=== PATIENT | female | born 1935 | race Caucasian/White ===

== ENCOUNTER 2018-02-13 06:53 | Day surgery (SDC) | payer MEDICARE, OTHER ==
--- NOTE | 2018-02-10 15:57 | HP ---
CC: Dr. Holliday; Dr. Hillman * ADMISSION HISTORY AND PHYSICAL: DATE OF ADMISSION: 02/13/18 ATTENDING SURGEON: Dr. Gamaliel Caballero.* (DICTATED BY JACKELINE JACKSON) CHIEF COMPLAINT: Abdominal wall mass. HISTORY OF PRESENT ILLNESS: This is an 82-year-old female with history of intraabdominal metastatic endometrial cancer (see below), who for the past 6 months or so has noted a gradually enlarging somewhat tender lump in the right upper quadrant. This was close to a prior laparoscopic port site. She states that it hurts to sit up without assistance. She also has some generalized symptoms of anorexia, though states that her current weight of 114 has been stable (down from 140 prior to treatment for her cancer). A fine needle aspiration was done by Pathology on 01/02/18, which confirmed metastatic endometrial cancer. A CT scan of the chest, abdomen and pelvis on 01/22/18 showed an enhancing mass in the right upper quadrant abdominal wall measuring 1.8 x 1.9 cm as well as a small umbilical hernia. No other definitive evidence of metastatic disease. The patient was seen in the office by Dr. Caballero on 06/19, at which time exam confirmed the presence of a right upper quadrant abdominal wall mass, which was firm and measured approximately [address] Caballero has discussed with her the indications for surgery, the risks, benefits, and alternatives. She would like to proceed as scheduled with excision of abdominal wall mass. At this point, plan is for resection under local anesthesia with IV sedation and primary closure of the defect. The patient understands that she may require an overnight stay for pain control. A prescription for [place] 5/325 was e-sent to her pharmacy for postoperative analgesia. PAST MEDICAL HISTORY: Endometrial carcinoma (found as an incidental finding at the time of hysterectomy for prolapse in the spring. That procedure was a robotic supracervical hysterectomy with BSO and sacrocervicopexy. She was treated with postoperative radiation therapy, but near the end of that treatment period, was noted to have a growing mass in the abdominal wall. Workup and subsequent surgery on 02/28/15 included resection of an 8 x 6 cm abdominal wall mass with additional debulking and omentectomy as well as reconstruction with AlloDerm. That surgery was done at [facility]. Margins were positive. The patient was treated subsequently by Dr. Hillman with carbo-taxol. At this point, there is no other evidence of metastatic disease). Past medical history is also positive for COPD and/or pulmonary fibrosis (the patient herself never a smoker, but exposed to significant secondhand smoke); hypertension; type 2 diabetes; chronic atrial fibrillation, on anticoagulation; chronic back pain related to spinal stenosis; hyperlipidemia ; mitral valve prolapse; glaucoma. PAST SURGICAL HISTORY: No additional prior surgeries reported. CURRENT MEDICATIONS: 1. Warfarin 5 mg one-half tablet once daily, 6 days out of 7 and 1 whole tablet every Saturday. The patient stopped preoperatively, her last dose being . 2. Atorvastatin 10 mg once daily. 3. Glipizide 5 mg one-half tablet once daily in the morning. 4. Metoprolol. Her chart records indicate 25 mg b.i.d., though her personal records indicate 25 mg one-half tablet b.i.d. 5. Ramipril 10 mg once daily (though her personal record indicates twice daily) . 6. Travatan Z 0.004% eye drops 1 drop OU q.h.s. 7. Betaxolol 0.5% ophthalmic drops 1 drop OU daily. 8. Torsemide 10 mg every other day. 9. Epinephrine p.r.n. for bee sting. 10. The patient is also currently on day 3 of 7 of Cipro 250 mg b.i.d. for UTI. DRUG ALLERGIES: None. FAMILY HISTORY: Negative for anesthesia problems, bleeding or clotting disorders. SOCIAL HISTORY: The patient is single and lives alone. She is a lifelong nonsmoker, though was exposed to significant secondhand smoke. She denies use of alcohol. REVIEW OF SYSTEMS: General: She is currently being treated for UTI and states that her symptoms have all resolved. She specifically denies fever or chills, dysuria or increased frequency. HEENT: She complains of dry mouth and difficulty with broken and/or missing teeth since onset of her cancer diagnosis. Cardiovascular: No recent chest pain, palpitations. Respiratory: She did undergo pulmonary function tests this morning in preparation for surgery. It appears as though she had been seen by Dr. Cavazos in the past for evaluation of sleep apnea, which she denies having or being treated for. GI: Generalized anorexia, but states that her weight has been stable. No nausea, vomiting. No lower GI symptoms reported. : As above. No additions. 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 Endocrine: No thyroid dysfunction. She is treated for type 2 diabetes, but does not do fingersticks on a regular basis and is not aware of her most recent A1c. She denies specific symptoms to suggest hypoglycemia. Neuro/Psych: No problems reported (she was previously taking sertraline, but not at present). Hematological/Oncological: As above. No additions. PHYSICAL EXAMINATION GENERAL: Thin, but otherwise well-nourished and well-appearing female, in no acute distress. She appears younger than her stated age of 82. VITAL SIGNS: Height 65 inches, weight 114 pounds. Blood pressure 122/80, pulse 108, respirations 22. HEENT: Pupils are equal, round, reactive. EOMs intact. Conjunctive pink. Oropharynx: Teeth in fair to poor repair with a number of missing and/or broken teeth. No other intraoral lesions of note. NECK: No lymphadenopathy in the cervical or supraclavicular regions. No thyromegaly. LUNGS: Clear to auscultation. No rales or wheezes. HEART: Irregularly irregular consistent with atrial fibrillation. No murmur appreciated. ABDOMEN: As above per abdominal wall lesion. Multiple well-healed surgical scars including midline and laparoscopic port sites. No other palpable masses or lesions. GENITALIA: Not done. RECTAL: Not done. BACK: No spinous process or CVA tenderness. EXTREMITIES: No edema. NEUROLOGICAL: Grossly intact. SKIN: Warm and dry. No suspicious rashes. There is a palpable lesion in the right upper quadrant of the abdominal wall as previously described, which is minimally tender, but fairly fixed to the abdominal wall. No other palpable subcutaneous lesions. IMPRESSION: Abdominal wall mass (metastatic endometrial carcinoma). PLAN: Excision, abdominal wall mass. JACKELINE JACKSON [id number]/[facility] #: [id number] KATE
[~2018-02-13 06:53] MED LIST: Buffered Lidocaine 0.9% SYRIN* 5 ML/SYR SYRINGE INTRADERM ONE; Lactated Ringers 1000 ML Bag* 1,000 ML IV SCH
[2018-02-13] MEDS ORDERED: Metoprolol Tartrate TAB* 50 mg ONE (08:14)
[2018-02-13] MEDS ORDERED: ceFAZolin 2 GM PREMIX in ORs 2 GM/50 ML BAG IVPB ONE (08:20)
[2018-02-13] MEDS ORDERED: Propofol* 10 MG/ML 20 ML BTL ONE (09:14)
[2018-02-13] MEDS ORDERED: fentaNYL* 50 MCG/ML 2 ML VIAL (100 MCG VIAL) ONE (09:15)
[2018-02-13] MEDS ORDERED: Bupivacaine 0.5% W/EPI SDV* 30 ML VIAL ONE (09:16)
[2018-02-13] MEDS ORDERED: Midazolam* 1 MG/ML 2 ML VIAL (2 MG) ONE (09:16)
[2018-02-13] MEDS ORDERED: Lidocaine 1% INJ* 10 MG/ML 30 ML SDV ONE (09:16)
[2018-02-13] MEDS ORDERED: Atracurium* 10 MG/ML 10 ML VIAL ONE (09:16)
[2018-02-13] MEDS ORDERED: Ondansetron INJ* 2 MG/ML VIAL IV PRN (10:05)
[2018-02-13] MEDS ORDERED: Naloxone* 0.4 MG/ML 1 ML VIAL IV PRN (10:05)
[2018-02-13] MEDS ORDERED: fentaNYL* 50 MCG/ML 2 ML VIAL (100 MCG VIAL) IV PRN (10:05)
[2018-02-13] MEDS ORDERED: oxyCODONE/Acetamin 5/325 MG* TAB PO PRN (10:05)
[2018-02-13] MEDS ORDERED: HYDROmorphone INJ1* 1 MG/ML SYRINGE IV PRN (10:05)
[2018-02-13] MEDS ORDERED: Metoprolol Tartrate IV* 1 MG/ML 5 ML VIAL ONE (10:16)
[2018-02-13] MEDS ORDERED: Ondansetron INJ* 2 MG/ML VIAL ONE (10:25)
[2018-02-13] MEDS ORDERED: Glycopyrrolate IV* 0.2 MG/ML 1 ML VIAL ONE (10:25)
[2018-02-13] MEDS ORDERED: Neostigmine Methylsulfate* 2 MG/2 ML SYRINGE ONE (10:25)
[2018-02-13] MEDS ORDERED: Heparin VIAL(*) 5000 UNITS/ML VIAL (FIVE THOUSAND) SUBCUT ONE (11:01)
[2018-02-13] MEDS ORDERED: Heparin VIAL(*) 5000 UNITS/ML VIAL (FIVE THOUSAND) ONE (11:04)
[2018-02-13 12:48] VITALS: BP 98/71
--- NOTE | 2018-02-13 14:49 | OP ---
CC: Dr. Gamaliel Caballero; Dr. Hillman; Dr. Holliday OPERATIVE REPORT: DATE OF OPERATION: 02/13/18 DATE OF : 37 SURGEON: Dr. Caballero. GROUP RESERVATIONS COORDINATOR: None. ANESTHESIOLOGIST: Dr. Mcmahon. ANESTHESIA: General anesthetic, local infiltration. PRE-OP DIAGNOSIS: Abdominal wall mass, port site tumor. POST-OP DIAGNOSIS: Abdominal wall mass, port site tumor. OPERATIVE PROCEDURE: Excision of right upper quadrant abdominal wall mass. DESCRIPTION OF PROCEDURE: The patient was supine on the operative table. After adequate general ane sthetic, compression stockings, Shantanu Hugger warmer, and intravenous antibiotics, the abdomen was prep ped with antiseptic, draped in a sterile fashion. The mass was palpable in the right subcostal regio n. An elliptical incision in the skin approximately 2 x 5 cm was created and this was carried down t o the abdominal wall mass. This was excised with roughly 1 cm margin in somewhat of an elliptical fa shion and sutures were used to twyla short, medium and long lateral locations and this was sent in for fabián for pathologic evaluation. Resection was done using electrocautery and hemostasis was good. Th e closure was accomplished in layers using 0 Vicryl. This created a nice closure. Local anesthetic was infiltrated into the muscle. The adipose was approximated with 3-0 Vicryl and the skin with 4-0 Prolene followed by sterile dressing. She tolerated the procedure well, was awakened and brought to Recovery in good condition. No complications, no drains. Pathologic specimen was abdominal wall mas s. Sponge and instrument counts correct. Estimated blood loss 20 mL. [id number]/[facility] #: [id number]
== END 2018-02-13 12:51 | disposition home or self-care (01) ==
LOC: OR 06:53
PROVIDERS: ATTEND Surgery
DX: C79.89 Secondary malignant neoplasm of other specified sites (principal); Z85.42 Personal history of malignant neoplasm of other parts of uterus; I48.91 Unspecified atrial fibrillation; Z79.01 Long term (current) use of anticoagulants; I10 Essential (primary) hypertension; E78.5 Hyperlipidemia, unspecified; I34.1 Nonrheumatic mitral (valve) prolapse; E11.9 Type 2 diabetes mellitus without complications; J44.9 Chronic obstructive pulmonary disease, unspecified
CPT/HCPCS: 88307; 88341; 88342; A9270-GY; J0690; J1644; J2250; J2405; J2704; J3010; J3490

== ENCOUNTER 2018-11-13 15:14 | Inpatient (IN) | payer MEDICARE, OTHER ==
--- NOTE | 2018-11-13 15:31 | ED ---
Palpitations / Dysrhythmia - HPI Summary HPI Summary: 83 year old F presenting to [facility] from [facility] office at [place] with a chief complaint of tachycardia and shortness of breath at the [facility] office 2 hours ago. Daughter states that patient has been having intermittent episodes of tachycardia and shortness of breath gradually progressing since 3 weeks ago. Patient denies pain and discomfort today. The patient rates the pain 0/10 in severity. Symptoms aggravated by nothing. Symptoms alleviated by nothing. Patient has never had these symptoms before. Patient has hx atrial fibrillation. No hx blood clots. Patient takes metoprolol and Coumadin which she has not taken for several days. Patient has not taken any of her medications today. Medications reviewed. Allergies noted. - History of Current Complaint Chief Complaint: EDDysrhythmPalp Time Seen by Provider: 11/13/18 15:23 Hx Obtained From: Patient Onset/Duration: Gradual Onset, Lasting Weeks - 3, Still Present, Worse Since - 2 hours ago Severity Currently: None Aggravating: Nothing Alleviating: Nothing - Allergy/Home Medications Allergies/Adverse Reactions: Allergies Allergy/AdvReac Type Severity Reaction Status Date / Time bee stings Allergy states Uncoded 11/13/18 15:15 passed out-did not require medical attention Home Medications: Home Medications Aspirin EC TAB* [Ecotrin EC Low Dose 81 MG*] 81 mg PO DAILY 11/13/18 [History Confirmed 11/13/18] Metoprolol Tartrate TAB* [Lopressor TAB*] 50 mg PO BID 11/13/18 [History Confirmed 11/13/18] Multivitamins/Minerals TAB* [Theragran/minerals TAB*] 1 tab PO DAILY 11/13/18 [ History Confirmed 11/13/18] Ramipril CAP* [Altace CAP*] 5 mg PO DAILY 11/13/18 [History Confirmed 11/13/18] Torsemide TAB* [Demadex*] 10 mg PO DAILY 11/13/18 [History Confirmed 11/13/18] Warfarin TAB(*) [Coumadin TAB(*)] 1.25 mg PO MOWEFRSA 11/13/18 [History Confirmed 11/13/18] Warfarin TAB(*) [Coumadin TAB(*)] 2.5 mg PO SUTUTH 11/13/18 [History Confirmed 11/13/18] PMH/Surg Hx/FS Hx/Imm Hx Endocrine/Hematology History: Reports: Hx Diabetes Denies: Hx Systemic Lupus Erythematosus Cardiovascular History: Reports: Hx Atrial Fibrillation, Hx Hypertension, Other Cardiovascular Problems/Disorders - Atrial Fibrillation-on warfarin, Hypercholesterolemia Denies: Hx Congestive Heart Failure, Hx Pacemaker/ICD Respiratory History: Denies: Other Respiratory Problems/Disorders GI History: Reports: Hx Gastroesophageal Reflux Disease, Other GI Disorders - Removal of abdominal wall mass,[id number] appetite History: Reports: Hx Renal Disease - abnormal gfr, Other Problems/ Disorders - UTI, being treated, Hysterectomy- found endometrial cancer-2014 Denies: Hx Dialysis Musculoskeletal History: Denies: Hx Rheumatoid Arthritis, Other Musculoskeletal History Sensory History: Reports: Hx Contacts or Glasses - Glasses, Hx Glaucoma - eye drops Denies: Hx Cataracts, Hx Hearing Aid Opthamlomology History: Reports: Hx Contacts or Glasses - Glasses, Hx Glaucoma - eye drops Denies: Hx Cataracts Neurological History: Denies: Other Neuro Impairments/Disorders Psychiatric History: Denies: Hx Panic Disorder - Cancer History Cancer Type, Location and Year: malig neoplasm corpus uteri Hx Chemotherapy: Yes - a few weeks ago with dr alex Fox Radiation Therapy: No - Surgical History Surgery Procedure, Year, and Place: hysterectomy, cervical prolapse, tumors removed L abd. and fachia, Hx Anesthesia Reactions: No Infectious Disease History: No Infectious Disease History: Denies: Traveled Outside the [place] in Last 30 Days - Social History Alcohol Use: None Hx Substance Use: No Substance Use Type: Reports: None Hx Tobacco Use: Yes Smoking Status (MU): Former Smoker Have You Smoked in the Last Year: No Review of Systems Positive: Other - tachycardia Positive: Shortness Of Breath All Other Systems Reviewed And Are Negative: Yes Physical Exam - Summary Physical Exam Summary: Constitutional: Well-developed, Well-nourished, Alert. Patient is tachypneic and retracting Skin: Warm, Dry HENT: Normocephalic; Atraumatic Eyes: Conjunctiva normal Neck: Musculoskeletal ROM normal neck. (-) JVD, (-) Stridor, (-) Tracheal deviation Cardio: Irregular irregular tachycardia, Heart sounds normal; Intact distal pulses; The pedal pulses are 2+ and symmetric. Radial pulses are 2+ and symmetric. (-) Murmur Pulmonary/Chest wall: Effort normal. (-) Respiratory distress, (-) Wheezes, (-) Rales Abd: Soft, (-) tenderness, (-) Distension, (-) Guarding, (-) Rebound Musculoskeletal: (-) Edema Lymph: (-) Cervical adenopathy Neuro: Alert, Oriented x3 Psych: Mood and affect Normal Triage Information Reviewed: Yes Vital Signs On Initial Exam: Initial Vitals Temp Pulse Resp BP Pulse Ox 97.9 F 120 24 123/82 97 11/13/18 15:15 11/13/18 15:15 11/13/18 15:15 11/13/18 15:15 11/13/18 15:15 Vital Signs Reviewed: Yes Diagnostics - Vital Signs Vital Signs Temp Pulse Resp BP Pulse Ox 11/13/18 15:15 97.9 F 120 24 123/82 97 - Laboratory Result Diagrams: 11/13/18 15:52 11/13/18 15:52 Lab Statement: Any lab studies that have been ordered have been reviewed, and results considered in the medical decision making process. - Radiology CXR Radiology Interpretation Completed By: Radiologist Summary of Radiographic Findings: 1. CARDIOMEGALY. 2. THERE IS DIFFUSE PATTERN OF RETICULAR OPACIFICATION. WHEN COMPARED TO THE PREVIOUS CT EXAMINATION , SLIGHTLY REPRESENTS A COMBINATION OF PULMONARY INTERSTITIAL EDEMA SUPERIMPOSED ON CHRONIC PULMONARY FIBROTIC CHANGES. ED physician has reviewed this report. - EKG 1526 EKG Rhythm: Atrial Fibrillation Summary of EKG Findings: Atrial fibrillation, RVR - Additional Comments Diagnostic Additional Comments: Chest/Thorax CTA shows, per radiologist: 1. The study is POSITIVE for a new filling defect in the right lower lobe pulmonary artery consistent with pulmonary embolus with irregular contour suggesting subacute or chronic clot. However, there is evidence of right heart strain with RV to LV ratio 1.3. 2. Cardiomegaly and dilated right heart chambers with evidence of elevated right heart pressure and dilated right heart chambers, new since prior. 3. Interval development of diffuse septal thickening and perihilar groundglass opacities, likely representing pulmonary edema secondary to CHF. Superimposed infection is not excluded. 4. Evidence of pulmonary fibrotic change. 5. Increased size of subcentimeter mediastinal lymph nodes, nonspecific and possibly related to patient's fluid status. 6. Other nonemergent findings detailed above. THIS REPORT CONTAINS FINDINGS THAT MAY BE CRITICAL TO PATIENT CARE. The findings were verbally communicated via telephone conference with Von Hernandez at 7:51 PM EDT on 11/13/2018. The findings were acknowledged and understood. ED physician has reviewed this report. Re-Evaluation - Re-Evaluation First Eval Re-Evaluation Time: 16:26 Change: Improved Comment: after 10 mg diltiazem, patient's HR is in the high 90s/low 100s Second Eval Re-Evaluation Time: 19:46 Change: Unchanged Comment: radiologist called to report that patient has a subacute clot Third Eval Re-Evaluation Time: 20:08 Change: Unchanged Comment: patient is agreeable to admission Course/Dx - Course Course Of Treatment: Patient is here with worsening shortness of breath and palpitations of the past 3 weeks. Patient was in atrial fibrillation and RVR on arrival. Patient is given 2 mg of diltiazem with improvement in her heart rate. Patient blood performed which showed a BNP greater than 1300. Patient had a d-dimer in the 600s. Patient had a CTA which showed a subacute PE. Patient was normotensive and not hypoxic. Patient did have evidence right heart strain on CTA. Patient was started on a heparin drip and admitted to medicine. - Diagnoses Provider Diagnoses: Atrial fibrillation with RVR, Pulmonary embolism, New onset of congestive heart failure - Physician Notifications Discussed Care Of Patient With: Kevin Mcgrath Time Discussed With Above Provider: 20:00 Instructed by Provider To: Other - Dr. Mcgrath, hospitalist, agrees to admit patient - Critical Care Time Critical Care Time: 30-74 min Discharge ED - Sign-Out/Discharge Documenting (check all that apply): Patient Departure - Admit Patient Received Moderate/Deep Sedation with Procedure: No - Discharge Plan Condition: Guarded Disposition: ADMITTED TO [facility] Referrals: Tammy Holliday MD [Primary Care Provider] - - Billing Disposition and Condition Condition: GUARDED Disposition: Admitted to [facility] - Attestation Statements Document Initiated by Scribe: Yes Documenting Scribe: Lesli Gillespie Provider For Whom Kerry is Documenting (Include Credential): Von Hernandez MD Scribe Attestation: Lesli Joseph, scribed for Von Hernandez MD on 11/13/18 at 2208. Scribe Documentation Reviewed: Yes Provider Attestation: The documentation as recorded by the Lesli dorman accurately reflects the service I personally performed and the decisions made by me, Von Hernandez MD Status of Scribe Document: Viewed
[2018-11-13] MEDS ORDERED: NS 0.9% 1000 ML** 1,000 ML IV ONE (15:34)
[2018-11-13] MEDS ORDERED: Metoprolol Tartrate IV* 1 MG/ML 5 ML VIAL IV ONE (15:45)
[2018-11-13] MEDS ORDERED: Diltiazem IV push/loading dose 5 MG/ML 5 ML vial (25 mg) IV SLOW PU ONE (15:55)
[2018-11-13 16:22] LABS: Albumin 3.4 g/dL (3.2-5.2); Albumin/Globulin Ratio 0.8 (1-3); BUN/Creatinine Ratio 23.5 (8-20); Calcium 9.2 mg/dL (8.6-10.3); EGFR African American 54.7 (>60); EGFR Non-African American 45.2 (>60); Globulin 4.1 g/dL (2-4); Hematocrit 35 % (35-47); Hemoglobin 11.5 g/dL (12.0-16.0); Mean Corpuscular HGB Conc 34 g/dL (31-36); Mean Corpuscular Hemoglobin 37 pg (27-31); Mean Platelet Volume 7.6 fL (7.4-10.4); Platelet Count 241 10^3/uL (150-450); Potassium 4.9 mmol/L (3.5-5.0); Red Blood Count 3.08 10^6 /uL (3.70-4.87); Red Cell Distribution Width 17 % (10-15); Total Bilirubin 0.8 mg/dL (0.2-1.0); Total Protein 7.5 g/dL (6.4-8.9); White Blood Count 5.9 10^3/uL (3.5-10.8)
[2018-11-13 16:24] LABS: Troponin I 0.01 ng/mL (<0.04)
--- OUTSIDE RECORDS SUMMARY | 2018-11-13 16:29 | XMS REPORT | Summary of Care ---
:1935 Author Organization [facility] Address [address] [facility] [place] [address] Care Team Providers Name Role Phone Tammy Holliday MD Primary Care Provider Jorge Luis Ingram MD Primary Card Checker/Founder & Ceo Reason for Referral Refer to Department Only (Routine) Status Reason Specialty Diagnoses / Referred By Referred To Procedures Contact Contact Pending Review Diagnoses Macrocytic anemia Tammy Holliday MD [address] [place] [address] Reason for Visit Reason Comments Follow Up 2wk to BP managment , pt c/o of labored breathing and more tired is seeing dr Higgins has apt again in march Encounter Details Date Type Department Care Team Description 10/29/2018 Office Visit [facility] Mg, Macrocytic anemia ( Primary Dx); Practice MD Tammy Type 2 diabetes mellitus with complication, without long-term current use of insulin (HCC); [address] Atrial fibrillation, unspecified type (HCC) [place] [address] [place] [address] [phone] Allergies Active Allergy Reactions Severity Noted Date Comments Lansoprazole-Naproxen Other 08/12/2007 Unknown Bee Sting Anaphylaxis High 11/22/2009 Probable yellow jacket documented as of this encounter (statuses as of 10/29/2018) Medications Medication Sig Dispensed Refills Start Date End Date Status ONE TOUCH ULTRA TEST USE DIRECTED 100 Each 5 10/15/2012 Active STRIPS In Vitro Strip TWO TIMES A DAY betaxolol (BETOPIC) Place 1 Drop in 0 Active 0.5 % Ophthalmic both eyes EVERY Solution MORNING. Travoprost (TRAVATAN Place 1 Drop in 0 Active Z) 0.004 % Ophthalmic both eyes EVERY Solution BEDTIME. metoprolol (LOPRESSOR) Take 1 Tab by 180 Tab 3 03/19/2018 Active 50 MG Oral mouth TWICE DAILY. TabIndications: Paroxysmal atrial fibrillation (HCC) atorvastatin (LIPITOR) Take 1 Tab by 90 Tab 1 05/22/2018 Active 10 MG Oral Tab mouth DAILY. glipiZIDE (GLUCOTROL) Take 0.5 Tabs by 45 Tab 1 05/22/2018 Active 5 MG Oral Tab mouth DAILY. torsemide (DEMADEX) 10 Take 1 Tab by 90 Tab 3 05/23/2018 Active MG Oral mouth DAILY. TabIndications: Chronic diastolic CHF (congestive heart failure) ([facility]) Multiple Vitamin Take 1 Tab by 0 09/10/2018 Active (DAILY VITAMIN) Oral mouth DAILY. TabIndications: vit k Indications: vit k 25mcg/tab 25mcg/tab warfarin (COUMADIN) 5 Take 0.5 Tabs by 30 Tab 0 09/24/2018 Active MG Oral Tab mouth DAILY. Not currently in use aspirin (ECOTRIN) 81 Take 81 mg by 0 Active MG Oral Tab EC mouth DAILY NEEDED. warfarin (COUMADIN) Take 1 Tab by 90 Tab 3 10/01/2018 Active 2.5 MG Oral mouth DAILY. As TabIndications: Atrial directed which is fibrillation, 2.5mg Sun/Tue/Mary. unspecified type (HCC) 1.25mg remaining days of week ramipril (ALTACE) 5 MG Take 1 Cap by 30 Cap 1 10/14/2018 Active Oral Cap mouth DAILY. documented as of this encounter (statuses as of 10/29/2018) Active Problems Problem Noted Date Chronic diastolic congestive heart failure 03/19/2018 Type 2 diabetes mellitus with complication, without long-term current use of insulin Atrial fibrillation, unspecified type 08/10/2015 Pelvic mass in female 01/18/2015 Malignant neoplasm of corpus uteri, except isthmus 08/02/2014 Overview: Recurrent multifocal endometrial cancer after robotic laparoscopic supracervical hysterectomy with bilateral salpingo oophorectomy and sacrocervicopexy with cryptic endometrial cancer found in the uterine fundus. 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 current use of anticoagulant therapy 04/08/2012 Overview: Managed by [facility] referred by Dr Mg Bailon Atrial fibrillation CHADS2 score 3 [HTN,Age,DM] target INR range 2.0-3.0 therapy initiated on 04/08/12 duration of therapy Indefinite updated referral 06/2014, 08/2015, 10/2016,12/2017 updated orders 06/24/14, 08/17/15, 11/13/16, 01/07/18 Hyperlipidemia 08/12/2007 Hypertension 08/12/2007 Peripheral neuropathy 08/12/2007 GERD (gastroesophageal reflux disease) 08/12/2007 Eczema 08/12/2007 MVP (mitral valve prolapse) 08/12/2007 Lyme disease 08/12/2007 Overview: False positive Lyme antibody test. Spinal stenosis, lumbar region, without neurogenic claudication Overview: L4-L5 DM (diabetes mellitus) documented as of this encounter (statuses as of 10/29/2018) Resolved Problems Problem Noted Date Resolved Date Abdominal pain, acute, left lower quadrant 12/30/2014 11/22/2017 Caput medusae 03/17/2014 08/02/2014 documented as of this encounter (statuses as of 10/29/2018) Immunizations Name Administration Dates Next Due Influenza (IM) Preservative Free 11/21/2012, 01/11/2010 Influenza Vaccine High Dose 11/08/2017, 12/03/2016, 12/14/2015, 12/03/2014, 12/23/2013 Influenza Vaccine Whole 12/17/2008, 12/19/2007, 12/16/2006 Influenza Virus Vaccine Pres Free 6-35 12/17/2011 Months PNEUMOCOCCAL POLYSACCHARIDE VACCINE 12/02/2007 Pneumococcal Conjugate(13 Valent) 12/13/2016 ZOSTER (ZOSTAVAX) VACCINE 12/17/2016 documented as of this encounter Social History Tobacco Use Types Packs/Day Years Used Date Never Smoker Smokeless Tobacco: Never Used Alcohol Use Drinks/Week oz/Week Comments No 0 Standard drinks or equivalent 0.0 Sex Assigned at Date Recorded Not on file Job Start Date Occupation Industry Not on file Not on file Not on file Travel History Travel Start Travel End No recent travel history available. documented as of this encounter Last Filed Vital Signs Vital Sign Reading Time Taken Comments Blood Pressure 92/58 10/29/2018 10:40 AM EDT Pulse 120 10/29/2018 10:40 AM EDT Temperature 36.5 10/29/2018 10:40 AM EDT C (97.7 F) Respiratory Rate - - Oxygen Saturation 97% 10/29/2018 10:40 AM EDT Inhaled Oxygen Concentration - - Weight 50.4 kg (111 lb 3.2 oz) 10/29/2018 10:40 AM EDT Height 166.4 cm (5' 5.5") 10/29/2018 10:40 AM EDT Body Mass Index 18.22 10/29/2018 10:40 AM EDT documented in this encounter Patient Instructions Patient InstructionsTammy Holliday MD - 10/29/2018 10:40 AM EDT1. Stop Glipizide 2. Schedule appointment with Hematology 3. Schedule appointment with cardiology documented in this encounter Progress Notes Tammy Holliday MD - 10/29/2018 10:40 AM EDT Patient: Loli Krishnan Date of Service: 10/29/2018 Subjective: Loli Krishnan is a 83-y.o. female who presents for Chief Complaint Patient presents with Follow Up 2wk to BP managment , pt c/o of labored breathing and more tired is seeing dr Higgins has apt again in march Patient comes follow up fatigue, SOB, low BP BP continues to be low. Sub optimal heart rate control: patient is tachycardic Past Medical History: Diagnosis Date Atrial fibrillation (HCC) 04/08/2012 DM (diabetes mellitus) (HCC) Eczema 08/12/2007 Endometrial cancer (HCC) GERD (gastroesophageal reflux disease) 08/12/2007 Hyperlipidemia 08/12/2007 Hypertension 08/12/2007 MVP (mitral valve prolapse) 08/12/2007 mild MR Peripheral neuropathy 08/12/2007 Spinal stenosis, lumbar region, without neurogenic claudication L4-L5 Outpatient Medications as of 10/29/2018 Medication Sig Dispense Refill aspirin (ECOTRIN) 81 MG Oral Tab EC Take 81 mg by mouth DAILY NEEDED. atorvastatin (LIPITOR) 10 MG Oral Tab Take 1 Tab by mouth DAILY. 90 Tab 1 betaxolol (BETOPIC) 0.5 % Ophthalmic Solution Place 1 Drop in both eyes EVERY MORNING. glipiZIDE (GLUCOTROL) 5 MG Oral Tab Take 0.5 Tabs by mouth DAILY. 45 Tab 1 metoprolol (LOPRESSOR) 50 MG Oral Tab Take 1 Tab by mouth TWICE DAILY. 180 Tab 3 Multiple Vitamin (DAILY VITAMIN) Oral Tab Take 1 Tab by mouth DAILY. Indications: vit k 25mcg/tab ONE TOUCH ULTRA TEST STRIPS In Vitro Strip USE DIRECTED TWO TIMES A DAY 100 Each 5 ramipril (ALTACE) 5 MG Oral Cap Take 1 Cap by mouth DAILY. 30 Cap 1 torsemide (DEMADEX) 10 MG Oral Tab Take 1 Tab by mouth DAILY. 90 Tab 3 Travoprost (TRAVATAN Z) 0.004 % Ophthalmic Solution Place 1 Drop in both eyes EVERY BEDTIME. warfarin (COUMADIN) 2.5 MG Oral Tab Take 1 Tab by mouth DAILY. As directed which is 2.5mg Sun/Tue/Mary. 1.25mg remaining days of week 90 Tab 3 warfarin (COUMADIN) 5 MG Oral Tab Take 0.5 Tabs by mouth DAILY. Not currently in use 30 Tab 0 No current facility-administered medications on file as of 10/29/2018. Allergies Allergen Reactions Sting [Bee Sting] Anaphylaxis Probable yellow jacket Prevacid Naprapac [Lansoprazole-Naproxen] Other Unknown Objective: BP 92/58 (BP Location: Left arm, Patient Position: Sitting) Pulse 120 Temp 97.7 F (36.5 C) Ht 5' 5.5" (1.664 m) Wt 111 lb 3.2 oz (50.4 kg) SpO2 97% BMI 18.22 kg/m2 GENERAL: alert, fatigued THROAT: lips, mucosa, and tongue normal: teeth and gums normal NECK: supple, symmetrical, trachea midline and no adenopathy LUNGS: clear to auscultation bilaterally HEART: irregularly irregular rhythm, systolic murmur EXTREMITIES: no edema. CBC - bacrocytic anemia (has macrocytosis since 2014, Vit B12/folic acid - normal), Iron - normal, Ferritin - elevated, HGA1C - normal, CMP - stable renal insufficiency Component Latest Ref Rng & Units 10/23/2018 10/23/2018 10/23/2018 10/23/2018 8/ 10/23/2018 10/23/2018 11:48 AM 11:48 AM 11:48 AM 11:48 AM 11:48 AM 11:48 AM 11:48 AM WBC COUNT 3.98 - 10.04 K/uL 6.41 RBC 3.93 - 5.22 M/UL 2.89 (L) Hemoglobin 11.2 - 15.7 g/dL 10.3 (L) Hematocrit 34.1 - 44.9 % 33.5 (L) MCV 79.4 - 94.8 FL 115.9 (H) MCH 25.6 - 32.2 PG 35.6 (H) MCHC 32.2 - 35.5 g/dL 30.7 (L) Platelet Count 182 - 369 K/uL 282 MPV 9.4 - 12.3 FL 10.1 RDW 11.7 - 14.4 % 16.2 (H) NEUTROPHILS 34.0 - 71.1 % 79.7 (H) Lymphocyte % 19.3 - 51.7 % 7.8 (L) MONOCYTES 4.7 - 12.5 % 6.6 Eosinophils 0.7 - 5.8 % 4.5 Basophil % 0.1 - 1.2 % 0.9 nRBC % 0.0 - 0.2 % 0.0 Neutrophil # 1.56 - 6.13 K/UL 5.11 Lymphocyte # 1.18 - 3.74 K/UL 0.50 (L) Monocyte # 0.24 - 0.86 K/UL 0.42 Eosinophil # 0.04 - 0.36 K/UL 0.29 Basophil # 0.01 - 0.08 K/UL 0.06 Immature Gran % 0.0 - 0.4 % 0.5 (H) Immature Gran # 0.00 - 0.03 K/uL 0.03 NRBC # 0.00 - 0.12 K/uL 0.00 Sodium 134 - 145 mmol/L 136 Potassium 3.5 - 5.1 mmol/L 4.7 Chloride 98 - 107 mmol/L 102 CO2 22 - 30 mmol/L 22 Calcium 8.3 - 10.1 mg/dl 9.4 Albumin 3.5 - 5.0 g/dl 3.6 BUN 7 - 17 mg/dl 29 (H) Creatinine 0.7 - 1.2 mg/dl 1.3 (H) Glucose (Lab) 70 - 99 mg/dl 104 (H) Protein,Total 6.3 - 8.2 g/dl 7.6 Total Bilirubin 0.0 - 1.1 MG/DL 0.4 AST 15 - 46 U/L 42 ALT 9 - 52 U/L 19 ALKALINE PHOSPHATASE 40 - 150 U/L 80 eGFR See Interpretation Below ml/min/1.73ml Sq 39 BUN/Creatinine Ratio 6 - 22 RATIO 22 Anion Gap 3 - 11 mmol/L 12 (H) A/G Ratio 0.8 - 2.0 ratio 0.9 Cholestrol <200 mg/dl 93 HDL >50 mg/dl 34 (L) Triglycerides <150 mg/dl 66 LDL Cholesterol <100 MG/DL 46 Cholesterol / HDL Ratio RATIO 2.7 LDL / HDL Ratio 1.3 Non-HDL Cholesterol 0 - 130 MG/DL 59 Rbc Morphology Normal abnormal (A) Anisocytosis 1+ Macrocytes 2+ Poikilocytosis 3+ Polychromasia 1+ Iron Serum 37 - 170 UG/DL 79 Ferritin 11.1 - 264.0 NG/ML 338.0 (H) Glycohemoglobin - POCT <=5.6 % 5.6 Patient advised on tests results ICD-9-CM ICD-10-CM 1. Macrocytic anemia 281.9 D53.9 REFER TO HEMATOLOGY / ONCOLOGY 2. Type 2 diabetes mellitus with complication, without long-term current use of insulin (HCC) Doubt she needs Glipizide any more 250.90 E11.8 3. Atrial fibrillation, unspecified type (HCC) Sub optimal rate control Can't increase Metoprolol due to low BP Will refer to cardiology ( Dig?) 427.31 I48.91 Patient Instructions 1. Stop Glipizide 2. Schedule appointment with Hematology 3. Schedule appointment with cardiology Author: Tammy Holliday MD documented in this encounter Plan of Treatment Date Type Specialty Care Team Description 11/13/2018 Office Visit Cardiology Alex Higgins MD [address] [place] [address] [phone] 11/19/2018 AntiCoag Anticoagulation 11/28/2018 Office Visit Family Practice Tammy Holliday MD [address] [place] [address] [phone] 03/18/2019 Orders Only Cardiology 03/26/2019 Office Visit Cardiology Alex Higgins MD [address] [place] [address] [phone] Name Type Priority Associated Diagnoses Order Schedule REFER TO HEMATOLOGY / Referral Routine Macrocytic anemia Expected: 2018, ONCOLOGY Expires: 10/30/2019 Health Maintenance Due Date Last Done Comments HIV SCREENING 1950 ZOSTER IMMUNIZATION SERIES 02/11/2017 12/17/2016 (2 of 3) MEDICARE ANNUAL WELLNESS 12/03/2017 12/03/2016, 04/08/2012 VISIT INFLUENZA VACCINE (#1) 2018 11/08/2017, 12/03/2016, 12/14/2015, Additional history exists HEMOGLOBIN A1C 04/25/2019 10/23/2018, 04/23/2018, 07/24/2017, Additional history exists DEPRESSION SCREENING 08/14/2019 08/13/2018 FALL RISK ASSESSMENT 08/14/2019 08/13/2018, 08/13/2018 FOOT EXAM 10/15/2019 10/14/2018, 10/14/2018, 07/31/2017 Diabetic Eye Exam 04/24/2020 04/24/2018, 04/24/2018, 10/21/2017, Additional history exists PNEUMOCOCCAL 65+YRS Completed 12/13/2016, 12/02/2007 HPV IMMUNIZATION SERIES Aged Out No longer eligible based on patient's age to complete this topic MENINGOCOCCAL VACCINE IMM Aged Out No longer eligible based on patient's age to complete this topic documented as of this encounter Goals Goal Patient Goal Associated Recent Patient-Stated? Author Type Problems Progress Blood Pressure Blood Pressure Hypertension 92/58 No Mg, < 140/90 (10/29/2018 Tammy, 10:40 AM EDT) Note: Hypertension Care Plan Based on the patient's clinical history and according to JNC 8 guidelines target blood pressure goal is less than 140/90. Based on the patient's last blood pressure of BP: 138/68 mmHg the patient is at at goal. As your provider, it is important that I advise you regarding: your current medications and help you with any challenges you may face taking your medications as directed (ex. instructions, cost, side effects, and interactions). Important lifestyle changes: exercise, diet and dietary sodium reduction your clinical goals and how you can achieve success: exercise plan and diet improvements medication management: adjusted medications as appropriate patient education/self-management tools provided: Yes To successfully manage my Hypertension I will: monitor my blood pressure daily, understanding that my goal is less than 140/ 90 per my healthcare provider's recommendation. I will schedule an appointment with my provider if consistent abnormal readings greater than 160/100. take medications every day as prescribed by my healthcare provider and if unable to take them I will discuss with my provider. monitor for symptoms of chest pain, chest tightness/pressure, irregular heartbeat, persistent dizziness, radiating arm pain, and neck or jaw pain. If any of these symptoms are noticed I will seek medical attention immediately by calling 911 exercise/walk 15 minutes 5 day(s) per week. If I experience chest pain, chest tightness, or shortness of breath, I will seek medical attention immediately. follow a diet rich in fruits, vegetables, and low-fat dairy products with reduced content of saturated & total fat. I will reduce my sodium intake daily. An example is the DASH diet. To obtain more information please refer to the DASH Eating Plan listed in Educational Resources. record my blood pressure results. e[employer] is safe and secure way for you to do this in your medical record online. limit alcohol consumption. For men two drinks per day and women one drink per day. if currently smoking, will discuss how to quit smoking with my healthcare provider and work towards quitting. Educational Resources: National Heart, Lung, & Blood [place] http://nhlbi.nih.gov/hbp/index.html The DASH Diet Eating Plan http://www.nhlbi.nih.gov/health/health-topics/ topics/dash/ Academy of Nutrition & DIetetics http://eatright.org National Smoking Cessation Site http://smokefree.gov Blood Pressure < Blood Pressure 92/58 (10/29/2018 10:40 No Kay Hammond PA-C 140/90 AM EDT) Note: This is an individualized treatment (blood pressure) goal for Loli Krishnan: Displayed above (on the left) is your goal for blood pressure control. Your most recent blood pressure is also shown above, on the right. You should try to achieve blood pressures that are lower than your goal listed above (on the left). Weight increase vs. 18 CHF 1.9 (10/29/2018 10:40 AM Tammy Kim MD mo min (lbs) < 5 EDT) Note: This is an individualized treatment (congestive heart failure, CHF) goal for Loli Krishnan: Displayed above (on the right) is how many pounds you are in excess of your lowest weight over the past 18 months. Note that lower numbers are better. Excessive weight gain often indicates fluid reten tion and worsening heart failure. You should contact your doctor immediately if the above number is too high (above your goal, the number on the left). Diabetes < 7.0 Diabetes DM (diabetes 5.6 (10/23/2018 Danielle Holliday, mellitus) 11:48 AM EDT) MD Tammy Note: Diabetes Care Plan According to current 2014 ADA guidelines the patient A1C goal is less than 7. The patient's last A1C was Lab Results Lab Results Value Date/Time GLYCO 5.9 02/10/2014 1057 GLYCO 5.8 05/25/2013 0956 The patient is:at goal . As your provider, it is important that I advise you regarding: your current medications and help you with any challenges you may face taking your medications as directed (ex. instructions, cost, side effects, and interactions). Important lifestyle changes:exercise, diet and glucose monitoring your clinical goals and how you can achieve success:exercise plan and diet management medication management: adjusted medications as appropriate patient education/self-management tools provided: Yes To successfully manage my Diabetes I will: have lab work every six months if my previous A1c was 7 or less. If my results were greater than 7, I will have lab work every three months. My goal is to control my diabetes by keeping A1c below 7.0 take medications every day as prescribed by my healthcare provider and if unable to take them I will discuss with my provider. exercise/walk 15 minutes 5 day(s) per week. If I experience chest pain, chest tightness, or shortness of breath, I will seek medical attention immediately. check feet daily. If sores or irritation are noticed, will seek medical attention. follow a low carbohydrate and low fat diet. My goal is an LDL (bad cholesterol) number less than 100 when I have my routine lab work. check blood sugar as instructed and will call my healthcare provider if the results are consistently below 70 or above 300. I will monitor for symptoms of low blood sugar (feeling faint, dizzy, lig htheaded, jittery, sweaty, or hungry), if symptoms are noticed, I will eat or drink something (glucose tabs, orange juice, candy) to help raise sugar. record my blood sugar results (including dextrose sticks). round[employer]re is safe and secure way for you to do this in your medical record online. to prevent kidney problems common to people with diabetes I will complete a yearly Microalbumin to check for protein in urine. I will talk with my healthcare provider about medications to prevent diabetic renal disease. to prevent diabetic retinopathy I will see an eye doctor yearly. A yearly dilated eye exam helps prevent blindness. if currently smoking, will discuss how to quit smoking with my healthcare provider and work towards quitting. Glycohemoglobin A1c < 7.0 Diabetes 5.6 (10/23/2018 11:48 AM No Kay Hammond PA-C EDT) Note: This is an individualized treatment (diabetes control, HgbA1C) goal for Loli Krishnan: Displayed above is your progress towards your HgbA1C goal. Your goal is shown above (on the left); your most recent HgbA1C is shown on the right. Note that lower numbers are better. Keep immunizations current Lifestyle No Kay Hammond PA-C Note: This is an individualized lifestyle goal for Loli Krishnan: Please be sure to keep up-to-date on recommended immunizations. For example, this would include a yearly influenza vaccine. Immunization status can be seen by looking at the Health Maintenance sections of your e[facility], Plan of Care, and any After Visit Summaries. Consume a [id number] diet Lifestyle No Tammy Holliday MD Note: This is an individualized lifestyle goal for Loli Krishnan: Please do not add additional salt to your food. Additional salt may lead to fluid retention and worsen your congestive heart failure. Take all prescribed medications as Self-management No Kya Hammond PA-C directed Note: This is an individualized self-management goal for Loli Krishnan: Please take all prescribed medications as directed. 1. Do not skip doses. If you cannot afford your medications, talk with your doctor. 2. Use a pill reminder system such as a pill box if needed. Your pharmacist can help you with this. 3. Contact your Pharmacy 5 days before your medication runs out. If you cannot take your medications for any reasons, talk with your doctor. 4. Please bring all of your medication bottles and inhalers (or a list of all your medications/inhalers) with you to every visit. Potential barriers to meeting all of your care plan goals will continue to be addressed on an ongoing basis. Check your weight daily Self-management No Tammy Holliday MD Note: This is an individualized self-management goal for Loli Krishnan: Please check your weight daily. Refer to the accompanying CHF treatment goal and call your doctor immediately for further instructions on how to respond to unexpected weight gain. documented as of this encounter Implants Implanted Type Area Electronics Installer Device Shelf Model / Identifier Expiration Serial / Date Lot [employer] [place] - [id number] N/A: Uterus BOSTON [id number] / Implanted: Qty: 1 on 07/27/2014 by Chelsey Hernandes MD at [facility] SCIENTIFIC / [id number] Alloderm, 8x16 Rtu Thick - [id number] N/A: LIFECE 03/13/2016 [id number] / Implanted: Qty: 1 on 02/10/2015 by Gamaliel Weiss MD at [facility] Abdomen / [id number] Seprafilm - [id number] N/A: Genzyme 01/01/2017 [id number] / Implanted: Qty: 1 on 02/10/2015 by Gamaliel Weiss MD at [facility] Abdomen / [id number] Seprafilm - [id number] N/A: Genzyme 03/03/2017 [id number] / Implanted: Qty: 1 on 02/10/2015 by Gamaliel Weiss MD at [facility] Abdomen / [id number] documented as of this encounter Results Not on filedocumented in this encounter Visit Diagnoses Diagnosis Macrocytic anemia - Primary Unspecified deficiency anemia Type 2 diabetes mellitus with complication, without long-term current use of insulin (HCC) Atrial fibrillation, unspecified type (HCC) documented in this encounter Insurance Payer Benefit Plan / Subscriber ID Effective Dates Phone Address Type Group MEDICARE MEDICARE PART A xxxxxxxxxxx 2001-Present Medicare & B [employer] COMMERCIAL AETNA xxxxxxxxxx 2013-Present [employer] (Work) documented as of this encounter Advance Directives Code Status Date Activated Date Inactivated Comments Full Code 07/27/2014 7:33 PM 07/28/2014 3:29 PM Full
--- OUTSIDE RECORDS SUMMARY | 2018-11-13 16:29 | XMS REPORT | Summary of Care ---
:1935 Author Organization [facility] Address [address] [place] [address] Care Team Providers Name Role Phone Tammy Holliday MD Primary Care Provider Jorge Luis Ingram MD Primary Bilingual Sales Consultant/Sports Medicine [place] Reason for Visit Reason Comments Follow Up Pt. in Per Dr. Holliday for increased Shortness of Breath with minimal exertion Encounter Details Date Type Department Care Team Description 11/13/2018 Office Visit [facility] [place] [facility], Aortic valve stenosis, etiology of cardiac valve disease unspecified (Primary Dx); Cardiology MD Alex Chronic diastolic CHF (congestive heart failure) ([facility]); [address] [facility] Essential hypertension; [place] [address] [place] [address] Dyspnea, unspecified type; [phone] Persistent atrial fibrillation ([facility]) Allergies Active Allergy Reactions Severity Noted Date Comments Lansoprazole-Naproxen Other 08/12/2007 Unknown Bee Sting Anaphylaxis High 11/22/2009 Probable yellow jacket documented as of this encounter (statuses as of 11/13/2018) Medications Medication Sig Dispensed Refills Start Date [...] TabIndications: Chronic diastolic CHF (congestive heart failure) (HCC) Multiple Vitamin Take 1 Tab by 0 [...] days of week ramipril (ALTACE) 5 MG TAKE 1 CAPSULE BY 30 Cap 1 11/10/2018 Active Oral Cap MOUTH DAILY documented as of this encounter (statuses as of 11/13/2018) Active Problems Problem Noted Date Chronic diastolic [...] in the uterine fundus. Cystocele, lateral 01/13/2014 [facility] current use of anticoagulant therapy 04/08/2012 Overview: Managed by [facility] referred by Dr Holliday Dx Atrial fibrillation CHADS2 score 3 [HTN,Age,DM] target [...] as of this encounter (statuses as of 11/13/2018) Resolved Problems Problem Noted Date Resolved Date Abdominal pain, acute, left lower quadrant 12/30/2014 11/22/2017 Caput medusae 03/17/2014 08/02/2014 documented as of this encounter (statuses as of 11/13/2018) Immunizations Name Administration Dates Next Due Influenza [...] Sign Reading Time Taken Comments Blood Pressure 100/62 11/13/2018 1:37 PM EDT Pulse 142 11/13/2018 1:37 PM EDT Temperature - - Respiratory Rate - - Oxygen Saturation 93% 11/13/2018 1:37 PM EDT Inhaled Oxygen Concentration - - Weight 52.6 kg (116 lb) 11/13/2018 1:37 PM EDT Height 166.4 cm (5' 5.5") 11/13/2018 1:37 PM EDT Body Mass Index 19.01 11/13/2018 1:37 PM EDT documented in this encounter Patient Instructions Patient InstructionsAlex Higgins MD - 11/13/2018 1:40 PM EDT No medication changes today. As we discussed, I recommend that you go into the hospital today to work on controlling your heart rate and improving your breathing. Follow up with me sometime after your hospitalization. documented in this encounter Progress Notes Alex Higgins MD - 11/13/2018 1:40 PM EDT [facility] Note Patient: Loli Krishnan Date of : 1935 Date of Service: 11/13/2018 REFERRING PRACTITIONER: Tammy Holliday PRIMARY CARE PROVIDER: Tammy Holliday Chief Complaint: Chief Complaint Patient presents with Follow Up Pt. in Per Dr. Holliday for increased Shortness of Breath with minimal exertion History of Present Illness: We had the pleasure of seeing Loli Krishnan today at the [facility] Office. She is a 83-y.o. female with HTN, hyperlipidemia, DM, spinal stenosis, persistent atrial fibrillation, aortic stenosis, pulmonary fibrosis, and diastolic CHF. She also has endometrial CA and is followed by Dr. Hillman. Ms. Krishnan returns to cardiology clinic today for worsening GARSIA. Since her last visit with me in March she's seen Khloe Giraldo multiple times and we had offered to do a cardioversion in May to see if it helped her dyspnea but the patient refused at that time. She most recently saw Khloe in September and 6 month f/ u was recommended. More recently she was seen by Dr. Holliday at the end of October and her HR was elevated at 120 bpm and her BP was low at 92/58. From a symptom standpoint, she reports that her breathing has gotten significantly worse in the pastfew weeks. At this point she can only walk a few feet before stopping for a breather. No chest pain/pressure. She has significant difficulty with swallowing b/c of a lot of phlegm in her mouth but she's not coughing up much. Has been seeing a lot of dentists and they've recommended all of her teeth be extracted. Continues to eat a lot of Cow Tails candy and hasn't had much good nutrition. Didn't take her Coumadin for last 2 days b/c she was concerned she would need to go to the hospital for a procedure and so she stopped it on her own. Did get some lightheadedness and spinning in her yard the other day and fell down but didn't lose consciousness. + orthopnea. No sig LE edema. 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 Cystocele, lateral Malignant neoplasm of corpus uteri, except isthmus (HCC) Pelvic mass in female Atrial fibrillation, unspecified type (HCC) Chronic diastolic congestive heart failure (HCC) Type 2 diabetes mellitus with complication, without long-term current use of insulin (HCC) Past Medical History: Diagnosis Date Atrial fibrillation (HCC) 04/08/2012 DM (diabetes mellitus) (HCC) Eczema 08/12/2007 Endometrial cancer (HCC) GERD (gastroesophageal reflux disease) 08/12/2007 Hyperlipidemia 08/12/2007 Hypertension 08/12/2007 MVP (mitral valve prolapse) 08/12/2007 mild MR Peripheral neuropathy 08/12/2007 Spinal stenosis, lumbar region, without neurogenic claudication L4-L5 Past Surgical History: Procedure Laterality Date POSTOP TOTAL ABDOMINAL HYSTERECTOMY Allergies Allergen Reactions Sting [Bee Sting] Anaphylaxis Probable yellow jacket Prevacid Naprapac [Lansoprazole-Naproxen] Other Unknown Current Outpatient Medications Medication aspirin (ECOTRIN) 81 MG Oral Tab EC atorvastatin (LIPITOR) 10 MG Oral Tab betaxolol (BETOPIC) 0.5 % Ophthalmic Solution glipiZIDE (GLUCOTROL) 5 MG Oral Tab metoprolol (LOPRESSOR) 50 MG Oral Tab Multiple Vitamin (DAILY VITAMIN) Oral Tab ONE TOUCH ULTRA TEST STRIPS In Vitro Strip ramipril (ALTACE) 5 MG Oral Cap torsemide (DEMADEX) 10 MG Oral Tab Travoprost (TRAVATAN Z) 0.004 % Ophthalmic Solution warfarin (COUMADIN) 2.5 MG Oral Tab warfarin (COUMADIN) 5 MG Oral Tab Family History Problem Relation Age of Onset Diabetes Father Hypertension Father Breast Cancer Mother Breast Cancer Daughter Social History Socioeconomic History Marital status: Spouse name: Not on file Number of children: Not on file Years of education: Not on file Highest education level: Not on file Occupational History Not on file Social Needs Financial resource strain: Not on file Food insecurity: Worry: Not on file Inability: Not on file Transportation needs: Medical: Not on file Non-medical: Not on file Tobacco Use Smoking status: Never Smoker Smokeless tobacco: Never Used Substance and Sexual Activity Alcohol use: No Alcohol/week: 0.0 standard drinks Drug use: Not on file Sexual activity: Never Lifestyle Physical activity: Days per week: Not on file Minutes per session: Not on file Stress: Not on file Relationships Social connections: Talks on phone: Not on file Gets together: Not on file Attends restoration service: Not on file Active member of club or organization: Not on file Attends meetings of clubs or organizations: Not on file Relationship status: Not on file Intimate partner violence: Fear of current or ex partner: Not on file Emotionally abused: Not on file Physically abused: Not on file Forced sexual activity: Not on file Other Topics Concern Not on file Social History Narrative Cat in home. 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 ,2 daughters Review of Systems - Negative except as noted in HPI. Physical Exam: Vitals: 11/13/18 1337 BP: 100/62 BP Location: Left arm Patient Position: Sitting Pulse: (!) 142 SpO2: 93% Weight: 116 lb (52.6 kg) Height: 5' 5.5" (1.664 m) Body mass index is 19.01 kg/m. General: Thin, alert 83-y.o. female with mild resting tachypnea HEENT: anicteric, MMM, no E/E OP, conj pink. Poor dentition Neck: JVP approx 6-7 cm above RA, no carotid bruits or LAD CV: Irreg irreg and tachy, normal s1/s2, 2/6 mid-peaking crescendo-decrescendo systolic murmur at USB as before. Pulm: Mild velcro-like rales at bilateral bases. + resting tachypnea Abd: soft, NT, ND, +BS. No appreciable pulsatile masses or bruits. Ext: no lower extremity edema, no cyanosis, no cords, redness, or warmth, 1+ distal pulses Neuro: no gross focal deficits Skin: no visible lesions Labs: Lab Results Component Value Date NA 136 10/23/2018 K 4.7 10/23/2018 CL 102 10/23/2018 CO2 22 10/23/2018 GLUCOSE 104 (H) 10/23/2018 BUN 29 (H) 10/23/2018 CREATININE 1.3 (H) 10/23/2018 CALCIUM 9.4 10/23/2018 TP 7.6 10/23/2018 ALBUMIN 3.6 10/23/2018 AST 42 10/23/2018 ALT 19 10/23/2018 ALK 80 10/23/2018 TBILI 0.4 10/23/2018 EGFR 39 10/23/2018 Lab Results Component Value Date NT PRO BNP 8,870 (H) 08/19/2018 Lab Results Component Value Date CHOL 93 10/23/2018 TRIG 66 10/23/2018 HDL 34 (L) 10/23/2018 LDL 46 10/23/2018 LDLHDLRATIO 1.3 10/23/2018 CHOLHDLRATIO 2.7 10/23/2018 Cardiac Studies: EKG Today (I personally reviewed): Afib with RVR in the 140s. TTE 08/20/18: Aortic Valve Aortic valve is tricuspid with thickened and calcified leaflets with reduced mobility. The mean and peak gradients across the aortic valve are 15 mmHg and 30 mmHg respectively. Dimensionless index (LVOT TVI / AV TVI) measures 0.35 which is suggestive of moderate(0.25-0.5) aortic stenosis. Aortic valve area by continuity equation is 0.9 cm2. Indexed Stroke Volume is 29 ml/m2. ( Normal SVI > 35 ml/m2). There is mild aortic regurgitation. FINAL IMPRESSION: Left ventricular cavity size is normal. Left ventricular wall thickness is mildly increased . No evidence of LVOT obstruction. No regional wall motion abnormalities. Global systolic function is low normal, with an estimated ejection fraction of 50-55 %. There is moderate to severe (probably low-glow, low gradient) aortic stenosis There is mild aortic regurgitation. There is moderate tricuspid regurgitation. Estimated pulmonary artery systolic pressure is approximately 48 mmHg. There is mild pulmonic regurgitation. Left atrial size is moderately dilated The right atrium is moderately dilated. The right ventricle is mildly dilated in size with mildly decreased contractility. No pericardial effusion. Regadenoson SPECT at [facility] 04/18/17: Assessment & Plan: Loli Krishnan is a 83-y.o. female with HTN, hyperlipidemia, DM, spinal stenosis , paroxysmal atrial fibrillation, aortic stenosis, pulmonary fibrosis, and diastolic CHF. She also has endometrial CA and is followed by Dr. Hillman. ICD-9-CM ICD-10-CM 1. Aortic valve stenosis, etiology of cardiac valve disease unspecified 424.1 I35.0 2. Chronic diastolic CHF (congestive heart failure) ([facility]) 428.32 I50.32 428.0 3. Essential hypertension 401.9 I10 4. Dyspnea, unspecified type 786.09 R06.00 5. Persistent atrial fibrillation ([facility]) 427.31 I48.1 1. Persistent Atrial Fibrillation/Flutter: The etiology of atrial arrhythmias in this patient is most likely related to age and HTN. The heart-rate is currently very poorly controlled on the current medical regimen and I think the rapid rate is the reason for her worsening CHF sxs. This patient's [id number] score is 5. I recommend the following treatment strategy and medical regimen for this patient: Stroke prevention: Based on the patient's [id number] risk profile, I recommend continuing OACtherapy. She has been on warfarin and hasn't wanted to switch to a NOAC in the past. Her INR was 2.5 on 10/29 but was subtherapeutic at 1.9 on 10/14. Rate control: Cont metoprolol for now. Rhythm control: At this point, I think that we need to pursue a rhythm control approach and tryto do a LEEANN/CV. She is so symptomatic at this point that I have recommended going into the hospitalfor consideration of Tikosyn initiation and LEEANN/CV. I offered to directly admit her to the cardiology service in [place] but she prefers to stay in [place] and has decided to go through the ER there. I will notify the ER that she's coming and would recommend trying to achieve NSR while she's there rather than just rate control 2. Chronic Diastolic CHF with NYHA Class IV symptoms: Symptoms are currently worsened, which is mostlikely related to the rapid AF as noted above. Dyspnea is multifactorial from pulmonary fibrosis, diastolic CHF, aortic stenosis, chronic anemia, and age/deconditioning. Recommendations are as follows: Most recent LV function: 50-55% (assessed on 08/20/18). Beta-erika: Metoprolol as above. ENE-inhibitor/ARB or Entresto: Will probably have to hold ramipril d/t lowish BPs. Aldosterone Antagonist: Not on, but may get benefit in future. Diuretics: Cont torsemide 3. Aortic Stenosis: Low gradients on recent echo, and appears moderate to severe by 2D imaging on of August echo. Will cont to monitor closely by echo. Thank you for allowing me to participate in the care of Loli Krishnan. We will plan on f/u in our office shortly after her hospitalization. If you have any questions or concerns please feel free to call our office at . Alex Higgins MD, 11/13/2018, 13:55 This note was created using my previous note as a template; changes were made where appropriate, andall information in the current note is up to date to the best of my knowledge.Electronically signed by Alex Higgins MD at 2018 2:27 PM EDTdocumented in this encounter Plan of Treatment Date Type Specialty Care Team Description 11/19/2018 AntiCoag Anticoagulation 11/28/2018 Office Visit Family Practice Tammy Holliday MD [address] [place] [id number] 03/18/2019 Orders Only Cardiology 03/26/2019 Office Visit Cardiology Alex Higgins MD [facility] [place] [address] [phone] Health Maintenance Due Date Last Done Comments [...] Problems Progress Blood Pressure Blood Pressure Hypertension 100/62 No Mg, < 140/90 (11/13/2018 Tammy, 1:37 PM EDT) Note: Hypertension Care Plan Based on [...] Educational Resources. record my blood pressure results. [facility] is safe and secure way for you to do this in your medical record online. limit alcohol consumption. For men two drinks per day and women one drink per day. if currently smoking, will discuss how to quit smoking with my healthcare provider and work towards quitting. Educational Resources: National Heart, Lung, & Blood Dorr http://nhlbi.nih.gov/hbp/index.html The DASH Diet Eating Plan http://www.nhlbi.nih.gov/health/health-topics/ topics/dash/ Academy of Nutrition & DIetetics http://eatright.org National Smoking Cessation Site http://smokefree.gov Blood Pressure < Blood Pressure 100/62 (11/13/2018 No Kay Hammond PA -C 140/90 1:37 PM EDT) Note: This is an individualized treatment (blood pressure) goal for Loli Krishnan: Displayed above (on the left) is your goal for blood pressure control. Your most recent blood pressure is also shown above, on the right. You should try to achieve blood pressures that are lower than your goal listed above (on the left). Weight increase vs. 18 CHF 6.7 (11/13/2018 1:37 PM No Tammy Holliday MD mo min (lbs) < 5 EDT) [...] < 7.0 Diabetes DM (diabetes 5.6 (10/23/2018 No Mg mellitus) 11:48 AM EDT) MD Tammy Note: [...] my blood sugar results (including dextrose sticks). [employer] is safe and secure way for you [...] numbers are better. Keep immunizations current Lifestyle Kay Amado PA-C Note: This is an individualized lifestyle goal for Loli Krishnan: Please be sure to keep up-to-date on recommended immunizations. For example, this would include a yearly influenza vaccine. Immunization status can be seen by looking at the Health Maintenance sections of your e[employer], Plan of Care, and any After Visit Summaries. Consume a [id number]-[id number]-[id number] diet Lifestyle No Tammy Holliday MD Note: This is an individualized lifestyle goal for Loli Krishnan: Please do not add additional salt to your food. Additional salt may lead to fluid retention and worsen your congestive heart failure. Take all prescribed medications as Self-management No Kay Hammond PA-C directed Note: This is an [...] of this encounter Implants Implanted Type Area Video Player Mechanic Device Shelf Model / Identifier Expiration Serial / Date Lot [facility] [id number] N/A: Uterus BOSTON [id number] / Implanted: Qty: 1 on 07/27/2014 by Chelsey Hernandes MD at [facility] SCI[employer] / [id number] Alloderm, 8x16 Rtu Thick - [id number] N/A: LIFECE 03/13/2016 [id number] / Implanted: Qty: 1 on 02/10/2015 by Gamaliel Weiss MD at [facility] Abdomen / [id number] Seprafilm - [id number] N/A: Genzyme 01/01/2017 [id number] / Implanted: Qty: 1 on 02/10/2015 by Gamaliel Weiss MD at [facility] Abdomen / [id number] Seprafilm - [id number] N/A: Genzyme 03/03/2017 [id number] / Implanted: Qty: 1 on 02/10/2015 by Gamaliel Weiss MD at [facility] Abdomen / [id number] documented as of this encounter Results Not on filedocumented in this encounter Visit Diagnoses Diagnosis Aortic valve stenosis, etiology of cardiac valve disease unspecified - Primary Chronic diastolic CHF (congestive heart failure) (HCC) Chronic diastolic heart failure Essential hypertension Unspecified essential hypertension Dyspnea, unspecified type Persistent atrial fibrillation (HCC) Atrial fibrillation documented in this encounter Insurance Payer Benefit Plan / Subscriber ID Effective Dates Phone Address Type Group MEDICARE MEDICARE PART A xxxxxxxxxxx 2001-Present Medicare & B AETNA COMMERCIAL AETNA xxxxxxxxxx 2013-Present Aetna (Work) documented as of this encounter Advance Directives Code Status Date Activated Date Inactivated Comments Full Code 07/27/2014 7:33 PM 07/28/2014 3:29 PM Full
[2018-11-13 16:30] LABS: INR 3.85 (0.82-1.09)
[2018-11-13] MEDS ORDERED: Iodixanol* (CONTRAST) 320 MG/ML 100 ML SDV IV ONE ×2 (16:41→17:40)
[2018-11-13 16:47] LABS: TSH (Thyroid Stimulating Horm) 9.69 mcIU/mL (0.34-5.60)
[2018-11-13 16:49] LABS: Mean Corpuscular Volume 112 fL (80-97)
[2018-11-13 16:56] LABS: Polychromasia 2+
[2018-11-13 16:57] LABS: ABS Lymphocytes 0.5 10^3/ul (1.0-4.8); ABS Monocytes 0.4 10^3/ul (0-0.8); Eosinophil % 0.3 %; Lymphocyte % 7.6 %; Nucleated Red Blood Cells % 0.6
[2018-11-13 17:46] LABS: Free T4 1.07 ng/dL (0.61-1.12)
[2018-11-13] MEDS ORDERED: Heparin DRIP 25,000 UNITS(*) 25,000 UNITS/500 ML BAG IV SCH (19:45)
[2018-11-13] MEDS ORDERED: Heparin VIAL(*) 5000 UNITS/ML VIAL (FIVE THOUSAND) IV PRN (19:50)
[2018-11-14] MEDS: Torsemide TAB 10 MG PO SCH ×2 (00:39→08:30)
[2018-11-14] MEDS: Metoprolol Tartrate TAB* 50 mg PO SCH ×3 (00:39→19:54)
[2018-11-14] MEDS: Metoprolol Tartrate IV* 1 MG/ML 5 ML VIAL IV PRN ×2 (01:17→09:17)
[2018-11-14 04:16] LABS: Activated Partial Thrombo Time >240.0 seconds (26.0-38.0)
[2018-11-14 04:21] LABS: ABS Basophils 0.1 10^3/ul (0-0.2); ABS Eosinophils 0.1 10^3/ul (0-0.6); ABS Lymphocytes 0.4 10^3/ul (1.0-4.8); ABS Monocytes 0.4 10^3/ul (0-0.8); ABS Neutrophils 5.4 10^3/ul (1.5-7.7); Eosinophil % 1.8 %; Hematocrit 33 % (35-47); Hemoglobin 10.8 g/dL (12.0-16.0); Mean Corpuscular HGB Conc 33 g/dL (31-36); Mean Corpuscular Hemoglobin 37 pg (27-31); Mean Corpuscular Volume 113 fL (80-97); Mean Platelet Volume 8.2 fL (7.4-10.4); Nucleated Red Blood Cells % 0.3; Platelet Count 216 10^3/uL (150-450); Red Blood Count 2.93 10^6 /uL (3.70-4.87); Red Cell Distribution Width 18 % (10-15); White Blood Count 6.4 10^3/uL (3.5-10.8)
[2018-11-14 07:21] LABS: INR 4.87 (0.82-1.09)
[2018-11-14] MEDS: Atorvastatin* 10 MG TAB PO SCH (08:31)
[2018-11-14] MEDS ORDERED: Aspirin EC TAB* 81 MG TAB.EC PO SCH (09:00)
[2018-11-14] MEDS ORDERED: Furosemide IV* 10 MG/ML VIAL (40 MG) IV ONE ×2 (10:11→16:40)
[2018-11-14] MEDS ORDERED: Diltiazem IV push/loading dose 5 MG/ML 5 ML vial (25 mg) IV SLOW PU PRN (10:14)
--- NOTE | 2018-11-14 10:44 | PN ---
Subjective Date of Service: 11/14/18 Interval History: 83 y/o F with PMH of Atrial Fibrillation(on warfarin), endocervical cancer with abdominal mets(s/p surgey, chemo and radiation) presennted from Dr. Siegel office for AF with RVR. Found to have volume overload, Acute on chronic PE, supratherapeutic INR, macrocytic anemia and subclinical hypothyroidism. Complains of difficulty in breathing even at rest. No palpitation, chest pain or leg swelling. ON 2 L of Oxygen. Objective Active Medications: Atorvastatin Calcium (Lipitor*) 10 mg PO QAM [facility] Last Admin: 11/14/18 08:31 Dose: 10 mg Diltiazem HCl (Diltiazem Iv Push/Loading Dose) 5 mg IV SLOW PU ONCE PRN PRN Reason: Heart Rate/Pulse Greater Than: Stop: 11/15/18 10:13 Metoprolol Tartrate (Lopressor Tab*) 50 mg PO BID [facility] Last Admin: 11/14/18 08:31 Dose: 50 mg Travoprost (Travatan Z 0.004% Opth (Nf)) 1 drop BOTH EYES BEDTIME [facility]; Protocol Vital Signs - 8 hr 11/14/18 11/14/18 11/14/18 03:23 07:28 09:24 Temperature 97.2 F 97.8 F Pulse Rate 109 138 Respiratory 30 30 Rate Blood Pressure 111/87 103/47 110/72 (mmHg) O2 Sat by Pulse 100 95 Oximetry Oxygen Devices in Use Now: Nasal Cannula Exam: Patient is sitting on a chair with nasal canula. HEENT: Normocepahlic and atraumatic Lungs: B/L crackles heard on lower lung base. Heart: normal heart sound heard with no any murmur. Abdomen: Soft, nondistended and nontender Extremity: No swelling Neuro: Alert, conscious and oriented Result Diagrams: 11/14/18 03:54 11/14/18 12:59 Assess/Plan/Problems-Billing Assessment: 83 y/o F with PMH of Atrial Fibrillation(on warfarin), endocervical cancer with abdominal mets(s/p surgey, chemo and radiation) presennted from Dr. Siegel office for AF with RVR. Found to have volume overload, Acute on chronic PE, supratherapeutic INR, macrocytic anemia and subclinical hypothyroidism. Tachypneic, tachycardic - Patient Problems (1) Atrial fibrillation with RVR Current Visit: Yes Status: Acute Code(s): I48.91 - UNSPECIFIED ATRIAL FIBRILLATION SNOMED Code(s): 370650439902379 Comment: Has long history with atrial fibrillation was on warfarin. presented with AF with RVR>120. IV metoprolol given in ED with standing order of metoprolol. still tachy. iv dilt if HR>120 sustained. Adviced for cardioversion but couldnot go cardioversion as her INR is high. Managing medically. Will monitor for decompensation (2) Volume overload Current Visit: Yes Status: Acute Code(s): E87.70 - FLUID OVERLOAD, UNSPECIFIED SNOMED Code(s): 45016930 Comment: Has SOB at rest. due to volume overload of rapid heart rate. Pulmonary edema seen on imaging. Iv lasix given with pham insertion. Improving now (3) Pulmonary embolism on long-term anticoagulation therapy Current Visit: Yes Status: Acute Code(s): I26.99 - OTHER PULMONARY EMBOLISM WITHOUT ACUTE COR PULMONALE; Z79.01 - PEDIATRIC PSYCHOLOGIST (CURRENT) USE OF ANTICOAGULANTS SNOMED Code(s): 276113928 Comment: acute on chronic PE even after being on warfarin. INR is 4.87. concern for recurrence of malignancy. will hold all anticoagulant and aspirin now. will repeat INR tomorrow. After INR becomes therapeutic will start heparin again. (4) Anemia, macrocytic Current Visit: Yes Status: Acute Code(s): D53.9 - NUTRITIONAL ANEMIA, UNSPECIFIED SNOMED Code(s): 28145307 Comment: may be due to vitamin B or foalte deficiency or early DANIE. Will send iron studies with vitamin b12 and folic acid. (5) Subclinical hypothyroidism Current Visit: Yes Status: Acute Code(s): E03.9 - HYPOTHYROIDISM, UNSPECIFIED SNOMED Code(s): 94485677 Comment: will follow up as outpatient . (6) Endometrial adenocarcinoma Current Visit: Yes Status: Acute Code(s): C54.1 - MALIGNANT NEOPLASM OF ENDOMETRIUM SNOMED Code(s): 478849123 Comment: diagnosed in 2014 incidently when she had bladder prolapse. mets to abd and omentum s/p resection of tumor with LLUVIA with BAL and extrenal beam radiation with carbo/ taxel recent resection on feb 2018 last f/u on clinic on may [address] rivero consulted. Ordered CT abd/pelvis with contrast (7) DVT prophylaxis Current Visit: Yes Status: Acute Code(s): Z29.9 - ENCOUNTER FOR PROPHYLACTIC MEASURES, UNSPECIFIED SNOMED Code(s): 099012042 Comment: not given as her INR is supratherapeutic. (8) DNR (do not resuscitate) Current Visit: Yes Status: Acute Status and Disposition: Inpatient. Attending: Lyndsey Mendoza Attestation Documenting Resident: Juan Mullen Supervising Physician: Lyndsey Mendoza Attending/Supervising Physician Comment: Attending AP 83 F PMH endometiral Ca dx in 2016 s/p TAHBSO with c/o abdominal met s/p surgery , XBRT, and chemo, with again recurrent in 2018 sp resection, hx of chornic AF on warfarin AC, who presented with SOB, dizziness, found to be in RVR, new submassive PE, new HFrEF. #HFrEF: EF 30%, trop neg, tachy induced? Lasix 40mg IV BID on 11/14, continue to dose #Submassive PE: No HD instability, some R heart strain on CT, Trop flat, not a candidate for lytics -INR is 4 on admission change to Lovenox when INR falls to therapeutic range (2- 3) #Afib RVR: PRN Dilt for sustained HR >120, this is a physiologic response to the PE #Hx of endometrial Ca: High risk for recurrence, CTAP ordered -Onc to consult #DVT: AC with lovenox when INR Is stable #Code: DNR Attestation: This service has been performed in part by a resident under the direction of a teaching physician.I, Lyndsey Mendoza, performed the service, or was physically present during the critical, or cruz portions of the service, furnished by the resident. I participated in the management of the patient.
[2018-11-14 11:42] LABS: Urine Appearance Cloudy; Urine Bacteria Absent (Absent); Urine Bilirubin Negative (Negative); Urine Blood 1+ (Negative); Urine Color Yellow; Urine Glucose Negative (Negative); Urine Ketones Negative (Negative); Urine Nitrite Negative (Negative); Urine Protein Negative (Negative); Urine Red Blood Cell Trace(0-2/hpf) (Absent); Urine Specific Gravity 1.017 (1.010-1.030); Urine Squamous Epithelial Cell Present (Absent); Urine Urobilinogen Negative (Negative); Urine White Blood Cell Absent (Absent)
--- NOTE | 2018-11-14 13:34 | HP ---
HISTORY AND PHYSICAL: DATE OF ADMISSION: 11/13/18 ADMITTING PROVIDER: Kevin Mcgrath MD PRIMARY CARE PROVIDER: Dr. Holliday. OUTPATIENT ONCOLOGIST: Dr. Hillman. OUTPATIENT DRY KILN OPERATOR HELPER: Dr. Higgins. CHIEF COMPLAINT: Dyspnea on exertion; was referred by Dr. Higgins directly from his office when the patient was in AFib with RVR with his expressed hope of getting a LEEANN cardioversion, possible Tikosyn initiation or other antiarrhythmic therapy. HISTORY OF PRESENT ILLNESS: Loli Krishnan is an 83-year-old female with past medical history of intraabdominal metastatic endometrial cancer, chronic atrial fibrillation, diabetes mellitus type 2, hypertension, COPD versus pulmonary fibrosis (never a smoker, but significant second-hand smoke), chronic back pain , mitral valve prolapse, glaucoma. She has had progressive dyspnea for what sounds like several months. She was advised in the springtime 2018 to consider a cardioversion versus pacemaker, but she states she did not want to "go down" clarifying she does not want an operation and she is somewhat leery of cardioversion given that there is not 100% chance that she would maintain sinus rhythm after an attempt. She had a recent TTE on 08/20/18 which showed moderate aortic stenosis, but thought maybe more or like moderate to severe with low flow and an EF of 50% to 55%. She has not seen Dr. Hillman in a while for her history of intraabdominal metastatic endometrial cancer with her last resection on 02/13/[address] Caballero to remove right upper quadrant abdominal wall met 1.8 x 1.9 cm as well as a small umbilical hernia. She is also status post carboplatin and Taxol for her endometrial carcinoma. She states she has been until recently pretty well controlled with her Coumadin, but 2 months ago, she was supratherapeutic and then subtherapeutic. The last check on 10/29/18, she was 2.5. She saw Dr. Higgins today. Her heart rates were more rapid and he recommended transport down to [facility] for potential cardioversion and Tikosyn load. She did not want to travel to [place] and instead wanted to go to [facility]. She was found to be in atrial fibrillation with RVR with rates initially in the 120s to 140s. She got 10 mg of diltiazem. She was also found to have a D-dimer of 612 and BNP of greater than 1300 (no prior records in our system). She does have a history of diastolic congestive heart failure for which she is on torsemide 10 mg daily. Chest x-ray showed diffuse pattern of reticular opacification when compared to the previous CT examination , probably represents a combination pulmonary interstitial edema superimposed on chronic pulmonary fibrotic changes in comparison to CT chest on 01/22/18. Now, a CTA of the chest demonstrated new filling defect in the right lower lobe pulmonary artery consistent with pulmonary embolus with irregular contour suggesting subacute or chronic clot. There was evidence of right heart strain. There was cardiomegaly and dilated right heart chambers with evidence of elevated right heart pressures and dilated right heart chambers. There was interval development of diffuse septal thickening and perihilar ground-glass opacities, likely representing pulmonary edema secondary to CHF, superimposed infections not excluded; evidence of pulmonary fibrotic changes; increased size of subcentimeter mediastinal lymph nodes, nonspecific and possibly related to the patient's fluid status. She was referred to hospitalist service for management of her AFib with RVR, subacute to chronic PE, and acute on chronic diastolic heart failure. She is somewhat of a poor historian. PAST MEDICAL HISTORY: Includes metastatic endometrial cancer, status post hysterectomy in 2014 with BSO and sacrocervicopexy. She had postoperative radiation therapy and had abdominal wall debulking and omentectomy in February 2015 at [facility], status post carboplatin and Taxol, and then abdominal resection on 02/13/[address] Caballero. Hypertension; diabetes mellitus type 2; chronic AFib, on anticoagulation; chronic back pain with spinal stenosis; hyperlipidemia; mitral valve prolapse; glaucoma; pulmonary fibrosis versus COPD (never a smoker). PAST SURGICAL HISTORY: As above. MEDICATIONS: Included: 1. Warfarin 1.25 mg p.o. Saturday, Saturday, Saturday, Saturday and 2.5 mg p.o. Saturday, Saturday, . 2. Travoprost 1 drop to both eyes at bedtime. 3. Torsemide 10 mg p.o. daily. 4. Ramipril 5 mg p.o. daily. 5. Metoprolol tartrate 50 mg p.o. b.i.d. 6. Theragran 1 tab p.o. daily. 7. Betoptic 0.5% one drop both eyes q.a.m. 8. Lipitor 10 mg p.o. q.a.m. 9. Aspirin 81 mg daily. ALLERGIES: BEE STINGS (passed out). FAMILY HISTORY: Mother of accident at age 82. Father of unknown cause at age 60. Brother had kidney cancer, is alive, age 75. SOCIAL HISTORY: The patient is a never smoker. Does not drink. She lives alone. Her 5 years ago. Her daughter is local and her medical surrogate, Rosalina Solis. She is a DNR and states she has signed the paper work to this effect. REVIEW OF SYSTEMS: A complete 14-point review of systems negative except as per HPI. She does have some coughing with phlegm. She is also quite concerned about her teeth. She feels like her mouth gets almost as if stuck with gum and she recently saw a dentist who said she needs to have the rest of them removed. Her diet is extremely limited, she basically eats [employer] caramel candy as a mainstay with occasionally few bites of (for example) mashed potatoes. She has dropped 20 to 30 pounds over the last year or so, she says. PHYSICAL EXAMINATION GENERAL APPEARANCE: No acute distress. VITAL SIGNS: Temperature 97.9; pulse rate initially 120 to 157, improved to low 110s; respiratory rate ranged between 17 and 46; satting 86% to 100% on 2 L ; blood pressure initially 122/82. HEENT: Normocephalic, atraumatic. Pupils equal, round, and reactive to light. Extraocular motions intact. No sclerae icterus. NECK: Supple. LUNGS: With diffuse Velcro crackles from mid lung down. No wheezing. No rhonchi. CARDIOVASCULAR: Tachycardic, irregularly irregular, slight systolic ejection murmur. ABDOMEN: Soft, nontender, nondistended. EXTREMITIES: Warm, well perfused. No peripheral edema. NEUROLOGIC: Cranial nerves II through XII are intact. Moving all extremities. Steam Generating Powerplant Mechanic strength intact. SKIN: No lesions or rashes. LABORATORY DATA: White count 5.9, hemoglobin 11.5, hematocrit 35, platelets 241. INR 3.85. D-dimer 612. Sodium 136, potassium 4.9, chloride 105, carbon dioxide 24, BUN 27, creatinine 1.15, glucose 135. Troponin 0.01. BNP greater than 1300. TSH 9.69. Free T4 of 1.07, total T3 of 100. IMAGING: Chest x-ray demonstrated, impression: 1. Cardiomegaly. 2. There is a diffuse pattern of ventricular opacification when compared to the previous CT examination, slightly represents a combination of pulmonary interstitial edema superimposed on chronic pulmonary fibrotic changes. CTA of chest showed, impression: 1. The study is positive for a new filling defect in the right lower lobe. Pulmonary artery consistent with pulmonary embolus with irregular contour suggesting subacute or chronic clot. However, there is evidence of right heart strain with RV to LV ratio of 1.3. 2. Cardiomegaly and dilated right heart chambers with evidence of elevated right heart pressure and dilated right heart chambers, new since prior. 3. Interval development of diffuse septal thickening and perihilar ground- glass opacities, likely representing pulmonary edema secondary to CHF. Superimposed infections not excluded. 4. Evidence of pulmonary fibrotic change. 5. Increased size of subcentimeter mediastinal lymph nodes, nonspecific and possibly related to the patient's fluid status. 6. Nonemergent findings detailed above. EKG demonstrated AFib with RVR, heart rate 142. No ST elevations or depressions. QTc is 501. ASSESSMENT AND PLAN: Loli Krishnan is an 83-year-old female with past medical history of metastatic endocervical cancer to the abdomen, status post 2 resections, carboplatin and Taxol, who does have chronic atrial fibrillation, on anticoagulation, presenting from Dr. Higgins's cardiology practice with Afib with RVR and desire to undergo LEEANN cardioversion, potential Tikosyn load per his recommendations. She was also incidentally, because of her dyspnea on exertion, found to have subacute to chronic pulmonary embolism with evidence of right heart strain. She was started on a heparin drip in the emergency room, and she was actually supratherapeutic on her INR at 3.85. BNP was elevated (no prior comparison). Troponin negative. We will consult Cardiology in the morning for consideration for a LEEANN cardioversion as per Dr. Higgins's recommendations. She, in the bigger picture, has a concerning history for recurrence of her metastatic cancer given her 20- to 30-pound weight loss, her newly discovered pulmonary embolism despite being on Coumadin. She had likely consideration for Lovenox upon discharge given her cancer history and pulmonary embolism, but we will await after cardioversion attempt is considered. Notably , she has in the past denied wanting to get either a pacemaker or attempt at cardioversion, but she at this time based on Dr. Higgins's recommendation will consider a cardioversion attempt. Also, we will defer to Cardiology about potential Tikosyn loading which would require a few days' stay for QTc monitoring. We will continue aspirin 81 mg daily. She has no leg edema, but does have potential pulmonary interstitial edema. For her acute on chronic diastolic heart failure, her diuresis plan must also account for her current Afib w/ RVR and right heart strain from the PE. Will be cautious initially with continuation of her torsemide 10 mg at night and consider an increased dose after attempt at cardioversion. Current blood pressures in the 110s over 70s to 80s. We will replete her electrolytes for potassium of 4 and magnesium above 2. She is a full code. She is a DNR. Her medical surrogate is her daughter, Rosalina Solis. For diet, she is n.p.o. after midnight after a cardiac , consistent carbohydrate diet. [id number]/[facility] #: [id number] [facility]
[2018-11-14 13:35] LABS: BUN/Creatinine Ratio 23.5 (8-20); Calcium 8.7 mg/dL (8.6-10.3); EGFR African American 52.5 (>60); EGFR Non-African American 43.4 (>60); Potassium 4.6 mmol/L (3.5-5.0)
--- NOTE | 2018-11-14 14:41 | ECHO ---
*[facility]* [place] [address] Fax #: [phone] Transthoracic Echocardiogram Patient: Loli Krishnan : 1935 Study Date: 11/14/2018 Age: 83 Gender: F HR: 101 bpm Height: 65 in /165.1 cm BSA: 1.6 m^2 Weight: 120.7 lb /54.9 kg BMI: 20.1 kg/m^2 *Payroll Accounting Specialist: Ange Sorto [facility] *Referring Physician: * Kevin Mcgrath *Reading Physician: * Mary Alice Montague MD Indications: PE. Congestive Heart Failure. History: Atrial fibrillation. Risk factors: Hypertension. Diabetes mellitus. Dyslipidemia. Conclusions Summary: - Left ventricle: Systolic function is moderately reduced. The estimated ejection fraction is 35-40%. - Right ventricle: Systolic function is moderately to severely reduced. - Left atrium: The atrium is severely dilated. - Right atrium: The atrium is severely dilated. - Mitral valve: There is moderate regurgitation. - Aortic valve: The findings are consistent with moderate to severe stenosis. The mean systolic gradient is 9.0 mm Hg. The valve area by the velocity-time integral method is 0.60 cm^2. The valve area by the peak velocity method is 0.50 cm^2. - Tricuspid valve: There is moderate regurgitation. - Pericardium, extracardiac: There is a left pleural effusion. - Pulmonary arteries: Systolic pressure is mildly increased. The peak pressure during systole by Doppler is 41.0 mm Hg. - No previous echocardiogram is available. Study data: Transthoracic echocardiogram. Procedure: Transthoracic echocardiography was performed. Image quality was fair. Complete 2D, spectral Doppler, and color flow Doppler. Location: Bedside. Patient status: Inpatient. Patient room number: 446. Rhythm: Atrial fibrillation. Findings Left ventricle: Wall thickness is mildly increased. Systolic function is moderately reduced. The estimated ejection fraction is 35-40%. Wall motion is normal; there are no regional wall motion abnormalities. Left ventricular diastolic function parameters are indeterminate. Right ventricle: The cavity size is normal. Systolic function is moderately to severely reduced. Left atrium: The atrium is severely dilated. Right atrium: The atrium is severely dilated. Mitral valve: The Mitral valve annulus appears calcified. The leaflets are mildly thickened. There is no evidence of stenosis. There is moderate regurgitation. Aortic valve: The annulus is calcified. The leaflets are severely thickened. Valve mobility is restricted. The findings are consistent with moderate to severe stenosis. There is trace regurgitation. Tricuspid valve: The leaflets are normal thickness. There is no evidence of stenosis. There is moderate regurgitation. Pulmonic valve: The leaflets are normal thickness. There is no evidence of stenosis. There is trace regurgitation. Aorta: The aortic root appears normal. Pericardium: There is no significant pericardial effusion. There is a left pleural effusion. Pulmonary arteries: The main pulmonary artery is normal-sized. Systolic pressure is mildly increased. Systemic veins: Inferior vena cava: The vessel is dilated. There is (< 50%) respiratory change in the IVC dimension. Measurements Left ventricle Value Ref Aortic valve continued Value Ref ROJELIO, LAX (L) 3.6 cm 3.8 - 5.2 Peak grad, S 18.0 mm Hg ----- ESD, LAX 3.2 cm 2.2 - 3.5 LVOT/AV, VTI ratio 0.2 ----- FS, LAX (L) 13 % 27 - 45 MARGE, VTI 0.60 cm^2 ----- PW, ED, LAX 0.9 cm 0.6 - 0.9 MARGE, Vmax 0.50 cm^2 ----- E', med joan, TDI (L) 4.8 cm/sec >=7.0 E/e', med joan, 28 Mitral valve Value Ref TDI Peak E 1.34 m/sec ----- Peak A 0.04 m/sec ----- LVOT Value Ref Decel time 109 ms ----- Diam, S 1.90 cm PHT 47 ms ----- Peak moisés, S 0.4 m/sec Mean grad, D 5.0 mm Hg ----- VTI, S 8.0 cm Peak grad, D 11.0 mm Hg ----- Peak grad, S 1 mm Hg MVA, PHT 4.9 cm^2 ----- Mean grad, S 0 mm Hg ERO, PISA 0.1 cm^2 ----- SV 22 ml MR vol, PISA 12 ml ----- MR fraction, PISA 35 % ----- Ventricular septum Value Ref IVS, ED (H) 1.2 cm 0.6 - 0.9 Pulmonic valve Value Ref Peak v, S 0.5 m/sec ----- Right ventricle Value Ref Peak grad, S 1.0 mm Hg ----- ROJELIO, LAX 2.7 cm ROJELIO minor ax, A4C 3.0 cm 1.9 - 3.5 Tricuspid valve Value Ref mid TR peak v 2.6 m/sec <=2.8 Pressure, S 42 mm Hg Peak RV-RA grad, S 27 mm Hg ----- Left atrium Value Ref Aortic root Value Ref AP dim, ES (H) 4.40 cm 2.70 - Root diam 2.7 cm <3.8 3.80 ML dim, A4C 4.9 cm Ascending aorta Value Ref SI dim, A4C 5.9 cm AAo AP diam, S 3.1 cm ----- Vol/bsa, ES, A/L (H) 63 ml/m^2 16 - 34 Aortic arch Value Ref Right atrium Value Ref Arch diam 2.4 cm ----- SI dim, ES (H) 6.5 cm 3.4 - 5.3 ML dim, ES, A4C (H) 5.4 cm 2.6 - 4.4 Pulmonary artery Value Ref Estimated RAP 15 mm Hg Pressure, S 41.0 mm Hg ----- Aortic valve Value Ref Inferior vena cava Value Ref Joan diam, ED 1.9 cm Diam 2.4 cm ----- Peak v, S 2.1 m/sec VTI, S 41.0 cm Mean grad, S 9.0 mm Hg Legend: (L) and (H) twyla values outside specified reference range. Prepared and electronically signed by Mary Alice Montague MD 11/14/2018 14:41
[2018-11-14] MEDS: Magic Mouth Was-BEN/MAAL/LIDO SWISH SPIT SCH ×2 (18:25→19:55)
[2018-11-14] MEDS: PTO: Travoprost Z 0.004% OPHTH (NF) 2.5 ML BTL BOTH EYES SCH (21:41)
[2018-11-15 06:35] LABS: Hematocrit 32 % (35-47); Hemoglobin 10.9 g/dL (12.0-16.0); INR 4.01 (0.82-1.09); Mean Corpuscular HGB Conc 34 g/dL (31-36); Mean Corpuscular Hemoglobin 38 pg (27-31); Mean Corpuscular Volume 110 fL (80-97); Mean Platelet Volume 8.1 fL (7.4-10.4); Platelet Count 214 10^3/uL (150-450); Red Blood Count 2.92 10^6 /uL (3.70-4.87); Red Cell Distribution Width 17 % (10-15)
[2018-11-15 06:46] LABS: Anion Gap 7 mmol/L (2-11); BUN/Creatinine Ratio 27.8 (8-20); Blood Urea Nitrogen 35 mg/dL (6-24); CO2 Carbon Dioxide 27 mmol/L (22-32); Calcium 8.4 mg/dL (8.6-10.3); Chloride 104 mmol/L (101-111); EGFR African American 49.2 (>60); EGFR Non-African American 40.7 (>60); Glucose 107 mg/dL (70-100); Magnesium 1.6 mg/dL (1.9-2.7); Potassium 3.8 mmol/L (3.5-5.0); Sodium 138 mmol/L (135-145)
[2018-11-15 06:50] LABS: Troponin I 0.02 ng/mL (<0.04)
[2018-11-15 07:29] LABS: ABS Eosinophils 0.1 10^3/ul (0-0.6); ABS Lymphocytes 0.5 10^3/ul (1.0-4.8); ABS Monocytes 0.5 10^3/ul (0-0.8); ABS Neutrophils 5.8 10^3/ul (1.5-7.7); Lymphocyte % 6.8 %; Nucleated Red Blood Cells % 0.5
[2018-11-15 07:31] LABS: Polychromasia 1+
[2018-11-15] MEDS ORDERED: Magnesium Sulfate 2 GM IV* 2 GM/50 ML BAG IVPB ONE (07:38)
--- NOTE | 2018-11-15 07:48 | PN ---
Subjective Date of Service: 11/15/18 Interval History: 83 y/o F with PMH of Atrial Fibrillation(on warfarin), endometrial cancer with abdominal mets(s/p surgey, chemo and radiation) presennted from Dr. Castrotic office for AF with RVR. Found to have volume overload, Acute on chronic PE, supratherapeutic INR, macrocytic anemia and subclinical hypothyroidism. No palpitation, chest pain or leg swelling. ON 2.5 L of Oxygen. VSS Objective Active Medications: Atorvastatin Calcium (Lipitor*) 10 mg PO QAM [facility] Last Admin: 11/14/18 08:31 Dose: 10 mg Betaxolol HCl (Betoptic 0.05%*) 1 drop BOTH EYES QAM [facility] Diltiazem HCl (Diltiazem Iv Push/Loading Dose) 5 mg IV SLOW PU ONCE PRN PRN Reason: Heart Rate/Pulse Greater Than: Stop: 11/15/18 10:13 Last Admin: 11/14/18 16:12 Dose: 5 mg Magnesium Sulfate (Magnesium Sulfate 2 Gm Iv*) 2 gm in 50 mls @ 50 mls/hr IVPB ONCE ONE Stop: 11/15/18 08:37 Metoprolol Tartrate (Lopressor Tab*) 50 mg PO BID [facility] Last Admin: 11/14/18 19:54 Dose: 50 mg Multi-Ingredient Mouthwash/Gargle (Magic Mouth Was-Maikel/Maal/Lido*) 5 ml SWISH SPIT QID [facility] Last Admin: 11/14/18 19:55 Dose: 5 ml Travoprost (Travatan Z 0.004% Opth (Nf)) 1 drop BOTH EYES BEDTIME [facility]; Protocol Last Admin: 11/14/18 21:41 Dose: 1 drop Vital Signs - 8 hr 11/15/18 03:15 Temperature 97.8 F Pulse Rate 85 Respiratory 20 Rate Blood Pressure 106/50 (mmHg) O2 Sat by Pulse 100 Oximetry Oxygen Devices in Use Now: Nasal Cannula Exam: Patient is sitting on a chair with nasal canula. HEENT: Normocepahlic and atraumatic Lungs: B/L crackles heard on lower lung base. Heart: normal heart sound heard with systolic murmur on left sternal border.. Abdomen: Soft, nondistended and nontender Extremity: No swelling Neuro: Alert, conscious and oriented. Result Diagrams: 11/15/18 06:24 11/15/18 06:24 Assess/Plan/Problems-Billing Assessment: 83 y/o F with PMH of Atrial Fibrillation(on warfarin), endometrial cancer with abdominal mets(s/p surgey, chemo and radiation) presennted from Dr. Siegel office for AF with RVR. Found to have volume overload, Acute on chronic PE, supratherapeutic INR, macrocytic anemia and subclinical hypothyroidism. VSS HF with reduced EF(35-40%) with right ventrucular systolic dysfunction with moderate to severe , MR and TR. - Patient Problems (1) Atrial fibrillation with RVR Current Visit: Yes Status: Acute Code(s): I48.91 - UNSPECIFIED ATRIAL FIBRILLATION SNOMED Code(s): 451755282589529 Comment: Has long history with atrial fibrillation. HR controlled today was on warfarin. presented with AF with RVR>120. IV metoprolol given in ED with standing order of metoprolol. iv dilt if HR>120 sustained. Adviced for cardioversion but couldnot go cardioversion as her INR is high. Managing medically. Will monitor for decompensation (2) Volume overload Current Visit: Yes Status: Acute Code(s): E87.70 - FLUID OVERLOAD, UNSPECIFIED SNOMED Code(s): 42631275 Comment: Has SOB at rest. due to volume overload of rapid heart rate. Pulmonary edema seen on imaging. Iv lasix given with pham insertion. Improving now echo shows EF of 35-40% with right ventricualr systolic dysfunction with moderate to severe , MR and TR. will start on torsemide from tomorrow. (3) Pulmonary embolism on long-term anticoagulation therapy Current Visit: Yes Status: Acute Code(s): I26.99 - OTHER PULMONARY EMBOLISM WITHOUT ACUTE COR PULMONALE; Z79.01 - MCC (CURRENT) USE OF ANTICOAGULANTS SNOMED Code(s): 756551677 Comment: acute on chronic PE even after being on warfarin. INR is 4.01 today. concern for recurrence of malignancy. will hold all anticoagulant and aspirin now. will repeat INR tomorrow. After INR becomes therapeutic will start lovenox again. (4) Anemia, macrocytic Current Visit: Yes Status: Acute Code(s): D53.9 - NUTRITIONAL ANEMIA, UNSPECIFIED SNOMED Code(s): 07882019 Comment: may be due to early DANIE. Iron low. B12 and folic acid normal (5) Subclinical hypothyroidism Current Visit: Yes Status: Acute Code(s): E03.9 - HYPOTHYROIDISM, UNSPECIFIED SNOMED Code(s): 42630030 Comment: will follow up as outpatient . (6) Endometrial adenocarcinoma Current Visit: Yes Status: Acute Code(s): C54.1 - MALIGNANT NEOPLASM OF ENDOMETRIUM SNOMED Code(s): 944309188 Comment: diagnosed in 2014 incidently when she had bladder prolapse. mets to abd and omentum s/p resection of tumor with LLUVIA with BAL and extrenal beam radiation with carbo/ taxel recent resection on feb 2018 last f/u on clinic on may [address] rivero consulted. Ordered CT abd/pelvis with contrast; waiting for the result (7) DVT prophylaxis Current Visit: Yes Status: Acute Code(s): Z29.9 - ENCOUNTER FOR PROPHYLACTIC MEASURES, UNSPECIFIED SNOMED Code(s): 986899688 Comment: not given as her INR is supratherapeutic. (8) DNR (do not resuscitate) Current Visit: Yes Status: Acute Status and Disposition: Inpatient. Attending: Lyndsey Mendoza Attestation Documenting Resident: Juan Mullen Supervising Physician: Lyndsey Mendoza Attestation: This service has been performed in part by a resident under the direction of a teaching physician.I, Lyndsey Mendoza, performed the service, or was physically present during the critical, or cruz portions of the service, furnished by the resident. I participated in the management of the patient.
[2018-11-15 08:13] LABS: % Iron Saturation 18 % (15-55); Iron 39 ug/dL (50-212); Total Iron Binding Capacity 220 mcg/dL (250-450); Transferrin 157 mg/dL (203-362)
[2018-11-15 08:39] LABS: Folate > 20.00 ng/mL (>3.99)
[2018-11-15] MEDS: Magic Mouth Was-BEN/MAAL/LIDO SWISH SPIT SCH ×4 (09:40→19:23)
[2018-11-15] MEDS: BETAXOLOL 0.5% BOTH EYES SCH (09:41)
[2018-11-15] MEDS: Atorvastatin* 10 MG TAB PO SCH (09:41)
[2018-11-15] MEDS: Metoprolol Tartrate TAB* 50 mg PO SCH ×2 (09:41→19:25)
[2018-11-15] MEDS ORDERED: Furosemide IV* 10 MG/ML VIAL (40 MG) IV ONE (12:36)
--- NOTE | 2018-11-15 14:32 | PN ---
Subjective Date of Service: 11/15/18 - CC: SOB Interval History: Patient presented from Dr. Tristan office for AF with RVR. Found to have volume overload, Acute on chronic PE, supratherapeutic INR, macrocytic anemia and subclinical hypothyroidism. PMHx Parox Atrial Fibrillation(on warfarin), endometrial cancer with abdominal mets(s/p surgey, chemo and radiation) . The patient states her breathing is much better. She was able to eat today. Cough has resolved. Medications Active Medications: Atorvastatin Calcium (Lipitor*) 10 mg PO QAM [facility] Last Admin: 11/15/18 09:41 Dose: 10 mg Betaxolol HCl (Betoptic 0.05%*) 1 drop BOTH EYES QAM [facility] Last Admin: 11/15/18 09:41 Dose: 1 drop Metoprolol Tartrate (Lopressor Tab*) 50 mg PO BID [facility] Last Admin: 11/15/18 09:41 Dose: 50 mg Multi-Ingredient Mouthwash/Gargle (Magic Mouth Was-Maikel/Maal/Lido*) 5 ml SWISH SPIT QID [facility] Last Admin: 11/15/18 09:40 Dose: 5 ml Travoprost (Travatan Z 0.004% Opth (Nf)) 1 drop BOTH EYES BEDTIME [facility]; Protocol Last Admin: 11/14/18 21:41 Dose: 1 drop Atorvastatin* [Lipitor*] 10 mg PO QAM 08/18/14 [History Confirmed 11/13/18] Travoprost Z 0.004% OPHTH (NF) [Travatan Z 0.004% OPTH (NF)] 1 drop BOTH EYES BEDTIME 05/19/15 [History Confirmed 11/13/18] Betaxolol 0.5 %* [Betoptic 0.5%*] 1 drop BOTH EYES QAM 02/10/18 [History Confirmed 11/13/18] Aspirin EC TAB* [Ecotrin EC Low Dose 81 MG*] 81 mg PO DAILY 11/13/18 [History Confirmed 11/13/18] Metoprolol Tartrate TAB* [Lopressor TAB*] 50 mg PO BID 11/13/18 [History Confirmed 11/13/18] Multivitamins/Minerals TAB* [Theragran/minerals TAB*] 1 tab PO DAILY 11/13/18 [ History Confirmed 11/13/18] Ramipril CAP* [Altace CAP*] 5 mg PO DAILY 11/13/18 [History Confirmed 11/13/18] Torsemide TAB* [Demadex*] 10 mg PO DAILY 11/13/18 [History Confirmed 11/13/18] Warfarin TAB(*) [Coumadin TAB(*)] 1.25 mg PO MOWEFRSA 11/13/18 [History Confirmed 11/13/18] Warfarin TAB(*) [Coumadin TAB(*)] 2.5 mg PO SUTUTH 11/13/18 [History Confirmed 11/13/18] Objective Vital Signs: Temp Pulse Resp BP Pulse Ox 97.2 F 92 19 104/57 95 11/15/18 11:25 11/15/18 11:25 11/15/18 11:25 11/15/18 11:25 11/15/18 11:25 Vital Signs - 12 hr Temp Pulse Resp BP Pulse Ox 11/15/18 11:25 97.2 F 92 19 104/57 95 11/15/18 08:03 97.6 F 95 18 109/58 96 11/15/18 08:00 18 11/15/18 03:15 97.8 F 85 20 106/50 100 Oxygen Devices in Use Now: Nasal Cannula Appearance: petite, cachectic lying in bed nearly flat. Eyes: PERRLA Ears/Nose/Mouth/Throat: Clear Oropharnyx, Mucous Membranes Moist Neck: No Thyroid Enlargement, Masses Respiratory: Symmetrical Chest Expansion and Respiratory Effort - decreased BS bases. + crackles. Cardiovascular: - - Irregular, no murmurs. Abdominal: - - Non tender, + bowel sounds. Extremities: No Edema Neurological: Alert and Oriented x 3 Lines/Tubes/Other Access: Clean, Dry and Intact Peripheral IV Laboratory Results: 11/15/18 06:24 11/15/18 06:24 INR (Anticoag Therapy) 4.01 (0.82-1.09) H 11/15/18 06:24 APTT >240.0 seconds (26.0-38.0) H* 11/14/18 03:54 Total Bilirubin 0.80 mg/dL (0.2-1.0) 11/13/18 15:52 AST 28 U/L (13-39) 11/13/18 15:52 ALT 20 U/L (7-52) 11/13/18 15:52 Alkaline Phosphatase 82 U/L (34-104) 11/13/18 15:52 B-Natriuretic Peptide > 1300 pg/mL (<=100) H 11/13/18 15:52 Total Protein 7.5 g/dL (6.4-8.9) 11/13/18 15:52 Albumin 3.4 g/dL (3.2-5.2) 11/13/18 15:52 Globulin 4.1 g/dL (2-4) H 11/13/18 15:52 Albumin/Globulin Ratio 0.8 (1-3) L 11/13/18 15:52 TSH 9.69 mcIU/mL (0.34-5.60) H 11/13/18 15:52 11/13/18 11/15/18 15:52 06:24 Troponin I 0.01 0.02 Diagnostic Imaging: * Transthoracic Echocardiogram Patient: Loli Krishnan : 1935 Study Date: 11/14/2018 Summary: - Left ventricle: Systolic function is moderately reduced. The estimated ejection fraction is 35-40%. - Right ventricle: Systolic function is moderately to severely reduced. - Left atrium: The atrium is severely dilated. - Right atrium: The atrium is severely dilated. - Mitral valve: There is moderate regurgitation. - Aortic valve: The findings are consistent with moderate to severe stenosis. The mean systolic gradient is 9.0 mm Hg. The valve area by the velocity-time integral method is 0.60 cm^2. The valve area by the peak velocity method is 0.50 cm^2. - Tricuspid valve: There is moderate regurgitation. - Pericardium, extracardiac: There is a left pleural effusion. - Pulmonary arteries: Systolic pressure is mildly increased. EKG Data: Tele: Afib, rates around 90 bpm Assessment/Plan 83 yo female sent in by regular merchandise appraiser for increased SOB with persistent afib with new RVR and found to have an acute on chronic PE with good anticoagulation on coumodin. Commorbidities: macrocytic anemia and subclinical hypothyroidism. Atrial Fibrillation(on warfarin), , endometrial cancer with abdominal mets(s/p surgey , chemo and radiation), anorexia, poor nutrition . Clinically improved following IV lasix and transient need for diltiazem gtt. AFIB: -Continue metoprolol, could increase dose if rates increase with increased activity. -Dr Cruz's notes discuss desire for NOAC to replace coumodin. I recommend doing this while she is here. It appears she has labile INR's and has had a PE on coumoding. Cardiology can assist with conversion PRN. : Low gradient in mod-severe range. I don't think she is a candidate for AVR with mets. CM: New drop in EF, previously 55% @ [place]. On BB. BP too low and may be too tight for resumption of ENE. Was on Torsemide outpatient. Consider resuming and could alternate with aldactone if electrolytes tolerate. Cachexia/cancer make this patient high risk.
[2018-11-15] MEDS ORDERED: Iodixanol* (CONTRAST) 320 MG/ML 100 ML SDV IV ONE (16:06)
[2018-11-15] MEDS ORDERED: Diltiazem IV push/loading dose 5 MG/ML 5 ML vial (25 mg) IV SLOW PU PRN (18:10)
[2018-11-15] MEDS: PTO: Travoprost Z 0.004% OPHTH (NF) 2.5 ML BTL BOTH EYES SCH (19:24)
[2018-11-16 07:08] LABS: INR 2.46 (0.82-1.09)
[2018-11-16 07:09] LABS: ABS Eosinophils 0.2 10^3/ul (0-0.6); ABS Lymphocytes 0.4 10^3/ul (1.0-4.8); ABS Monocytes 0.6 10^3/ul (0-0.8); ABS Neutrophils 5.9 10^3/ul (1.5-7.7); Eosinophil % 3.2 %; Hematocrit 32 % (35-47); Hemoglobin 11.1 g/dL (12.0-16.0); Lymphocyte % 5.8 %; Mean Corpuscular HGB Conc 35 g/dL (31-36); Mean Corpuscular Hemoglobin 38 pg (27-31); Mean Corpuscular Volume 109 fL (80-97); Mean Platelet Volume 8.2 fL (7.4-10.4); Nucleated Red Blood Cells % 0.1; Platelet Count 221 10^3/uL (150-450); Red Blood Count 2.94 10^6 /uL (3.70-4.87); Red Cell Distribution Width 17 % (10-15); White Blood Count 7.2 10^3/uL (3.5-10.8)
[2018-11-16 07:14] LABS: BUN/Creatinine Ratio 35.4 (8-20); Calcium 8.1 mg/dL (8.6-10.3); EGFR African American 67.3 (>60); EGFR Non-African American 55.6 (>60); Potassium 3.5 mmol/L (3.5-5.0)
[2018-11-16] MEDS ORDERED: Torsemide TAB 10 MG PO SCH (09:00)
--- NOTE | 2018-11-16 09:22 | PN ---
Subjective Date of Service: 11/16/18 Interval History: HD 4 on 11/16 83 F PMH endometiral Ca dx in 2016 s/p TAHBSO with c/o abdominal met s/p surgery , XBRT, and chemo, with again recurrent in 2018 sp resection, hx of chronic AF on warfarin AC, who presented with SOB, dizziness, found to be in RVR, new submassive PE, new HFrEF (35-40% from 55%). Interim Hx: VSS overnight no acute events, still needing O2 Labs: Cr normalizing, stable Hgb Imaging: CT of AP reveals no recurrence of cancer This morning pt is well w no complaints. We discuss plan, no cancer, this is reassuring, and can likely be transitioned to DOAC assuming that PE was from labile INR is outpt setting which is confirmed with Dr Villafuerte note, remains rate controlled after control of pulm edema. Pleasant and well with no other acute complaints update family at bedside Objective Active Medications: Atorvastatin Calcium (Lipitor*) 10 mg PO QAM [facility] Last Admin: 11/15/18 09:41 Dose: 10 mg Betaxolol HCl (Betoptic 0.05%*) 1 [facility] Last Admin: 11/15/18 09:41 Dose: 1 drop Diltiazem HCl (Diltiazem Iv Push/Loading Dose) 5 mg IV SLOW PU Q6H PRN PRN Reason: HEART RATE/PULSE GREATER THAN: Last Admin: 11/16/18 00:55 Dose: 5 mg Metoprolol Tartrate (Lopressor Tab*) 50 mg PO BID [facility] Last Admin: 11/15/18 19:25 Dose: 50 mg Multi-Ingredient Mouthwash/Gargle (Magic Mouth Was-Maikel/Maal/Lido*) 5 ml SWISH SPIT QID [facility] Last Admin: 11/15/18 19:23 Dose: 5 ml Torsemide (Torsemide) 10 mg PO DAILY [facility] Travoprost (Travatan Z 0.004% Opth (Nf)) 1 drop BOTH EYES BEDTIME [facility]; Protocol Last Admin: 11/15/18 19:24 Dose: 1 drop Vital Signs - 8 hr 11/16/18 11/16/18 11/16/18 03:15 09:19 09:20 Pulse Rate 108 Respiratory 18 Rate Blood Pressure 105/56 99/53 108/68 (mmHg) O2 Sat by Pulse 91 Oximetry Oxygen Devices in Use Now: Nasal Cannula Appearance: Pleasant woman in NAD Eyes: No Scleral Icterus Ears/Nose/Mouth/Throat: Clear Oropharnyx, - - Poor dentition, one tooth dry MM, no thrush Neck: NL Appearance and Movements; NL JVP Respiratory: - - Crackles to R lung Cardiovascular: - - Irreg irreg tachy no murmur Abdominal: NL Sounds; No Tenderness; No Distention, No Hepatosplenomegaly Extremities: No Edema Neurological: Alert and Oriented x 3 Result Diagrams: 11/16/18 06:45 11/16/18 06:45 Assess/Plan/Problems-Billing Assessment: 83 F PMH endometrial Ca dx in 2016 s/p TAHBSO with c/o abdominal met s/p surgery , XBRT, and chemo, with again recurrent in 2018 sp resection, hx of chornic AF on warfarin AC, who presented with SOB, dizziness, found to be in RVR, new submassive PE, new HFrEF. - Patient Problems (1) Heart failure with reduced ejection fraction Current Visit: Yes Status: Acute Code(s): I50.20 - UNSPECIFIED SYSTOLIC ( CONGESTIVE) HEART FAILURE SNOMED Code(s): 695988166 Comment: - EF now at 35%, most likely tachy medicated from prolonged time spent in RVR - 1L daily since 11/14, remove pham today - Troponin 0 on admission, CP free, sx more SOB - Lasix 40mg IV 11/13, 11/15, oral toresmide 11/16 home dose - Restart asa - Optimize with alternating toresmide and spironolactone - BP may not allow optimizing with ENE I - Ensure FU with Dr. Montgomery (2) Atrial fibrillation with RVR Current Visit: Yes Status: Acute Code(s): I48.91 - UNSPECIFIED ATRIAL FIBRILLATION SNOMED Code(s): 851491338153971 Comment: - Rate controlled on Metoprolol Tartrate 50 BID, home dose - Likely triggered from edema and PE, improving with removal off volume (3) Pulmonary embolism on long-term anticoagulation therapy Current Visit: Yes Status: Acute Code(s): I26.99 - OTHER PULMONARY EMBOLISM WITHOUT ACUTE COR PULMONALE; Z79.01 - ELECTROMECHANISMS DESIGN DRAFTER (CURRENT) USE OF ANTICOAGULANTS SNOMED Code(s): 576138905 Comment: - Acute on chronic PE even after being on warfarin. No e/o recurrence of Ca, likely from labile INR - Start Apixaban when PT/INR <2 or close to 2 per guidelines, 5mg PO BID (4) Anemia, macrocytic Current Visit: Yes Status: Acute Code(s): D53.9 - NUTRITIONAL ANEMIA, UNSPECIFIED SNOMED Code(s): 77518283 Comment: - May be due to early DANIE. Iron low - Normal B12, Folic Acid (5) Subclinical hypothyroidism Current Visit: Yes Status: Acute Code(s): E03.9 - HYPOTHYROIDISM, UNSPECIFIED SNOMED Code(s): 98401564 Comment: - Can be followed as outpt - TSH 9ish, T3/T4 normal, non contirbutory to RVR state (6) Endometrial adenocarcinoma Current Visit: Yes Status: Acute Code(s): C54.1 - MALIGNANT NEOPLASM OF ENDOMETRIUM SNOMED Code(s): 424313018 Comment: - Diagnosed in 2014 incidently when she had bladder prolapse., s/p resection of tumor with LLUVIA with BAL and extrenal beam radiation with carbo/ taxel recent resection on feb 2018 - Last f/u on clinic on may 2018 with no recurrence - CTAP shows no e/o recurrence on 11/15 (7) Chronic secondary oral pain Current Visit: Yes Status: Acute Code(s): K13.79 - OTHER LESIONS OF ORAL MUCOSA; G89.29 - OTHER CHRONIC PAIN SNOMED Code(s): 189254933 Comment: - Chronic mouth pain thought to be remenant from chemo and poor dentition - Continue magic mouthwash, no e/o thrush (8) DVT prophylaxis Current Visit: Yes Status: Acute Code(s): Z29.9 - ENCOUNTER FOR PROPHYLACTIC MEASURES, UNSPECIFIED SNOMED Code(s): 310248198 Comment: - Start Apixaban when INR is art 2 or <2 (9) DNR (do not resuscitate) Current Visit: Yes Status: Acute Status and Disposition: Inpatient. Awaiting PT feedback may need rehab for deconditioning, otehrwise would benefit from home care nursing for pill pour
[2018-11-16] MEDS: BETAXOLOL 0.5% BOTH EYES SCH (11:00)
[2018-11-16] MEDS: Atorvastatin* 10 MG TAB PO SCH (11:00)
[2018-11-16] MEDS: Metoprolol Tartrate TAB* 50 mg PO SCH ×2 (11:01→21:03)
[2018-11-16] MEDS: Magic Mouth Was-BEN/MAAL/LIDO SWISH SPIT SCH ×4 (11:14→21:03)
--- NOTE | 2018-11-16 14:38 | PN ---
Subjective Date of Service: 11/16/18 - CC:coughing/SOB, improving. Interval History: Patient presented from Dr. Castrotics office for AF with RVR. Found to have volume overload, Acute on chronic PE, supratherapeutic INR, macrocytic anemia and subclinical hypothyroidism. PMHx Parox Atrial Fibrillation(on warfarin), endometrial cancer with abdominal mets(s/p surgey, chemo and radiation) . The patient states her breathing is much better. Not coughing. Eating well. Feels pulse rate escalate with any movement. Son and daughter present Medications Active Medications: Atorvastatin Calcium (Lipitor*) 10 mg PO QAM [facility] Last Admin: 11/16/18 11:00 Dose: 10 mg Betaxolol HCl (Betoptic 0.05%*) 1 drop BOTH EYES [facility] Last Admin: 11/16/18 11:00 Dose: 1 drop Diltiazem HCl (Diltiazem Iv Push/Loading Dose) 5 mg IV SLOW PU Q6H PRN PRN Reason: HEART RATE/PULSE GREATER THAN: Last Admin: 11/16/18 00:55 Dose: 5 mg Metoprolol Tartrate (Lopressor Tab*) 50 mg PO BID [facility] Last Admin: 11/16/18 11:01 Dose: 50 mg Multi-Ingredient Mouthwash/Gargle (Magic Mouth Was-Maikel/Maal/Lido*) 5 ml SWISH SPIT QID [facility] Last Admin: 11/16/18 14:13 Dose: 5 ml Torsemide (Torsemide) 10 mg PO DAILY [facility] Last Admin: 11/16/18 11:01 Dose: 10 mg Travoprost (Travatan Z 0.004% Opth (Nf)) 1 drop BOTH EYES BEDTIME [facility]; Protocol Last Admin: 11/15/18 19:24 Dose: 1 drop Objective Vital Signs: Temp Pulse Resp BP Pulse Ox 98 F 101 20 110/57 99 11/16/18 11:15 11/16/18 11:15 11/16/18 11:15 11/16/18 11:15 11/16/18 11:15 Vital Signs - 8 hr Vital Signs 11/15/18 11/16/18 11/16/18 23:28 00:00 03:15 Temperature 97.2 F Pulse Rate 94 108 Respiratory 16 18 Rate Blood Pressure 104/59 105/56 (mmHg) O2 Sat by Pulse 97 97 91 Oximetry 11/16/18 11/16/18 11/16/18 07:15 08:00 09:19 Temperature 98.1 F Pulse Rate 78 Respiratory 16 18 Rate Blood Pressure 106/65 99/53 (mmHg) O2 Sat by Pulse 100 Oximetry 11/16/18 11/16/18 11/16/18 09:20 10:35 11:15 Temperature 97.7 F 98 F Pulse Rate 112 101 Respiratory 18 20 Rate Blood Pressure 108/68 106/72 110/57 (mmHg) O2 Sat by Pulse 98 99 Oximetry Oxygen Devices in Use Now: Nasal Cannula Appearance: petite, cachectic lying in bed 40 degrees, appears comfortable, smiling.. Eyes: PERRLA Ears/Nose/Mouth/Throat: Clear Oropharnyx, Mucous Membranes Moist Neck: No Thyroid Enlargement, Masses Respiratory: Symmetrical Chest Expansion and Respiratory Effort - decreased BS bases. + crackles. Cardiovascular: - - Irregular, no murmurs. Abdominal: - - Non tender, + bowel sounds. Extremities: No Edema Neurological: Alert and Oriented x 3 Lines/Tubes/Other Access: Clean, Dry and Intact Peripheral IV Laboratory Results: 11/16/18 06:45 11/16/18 06:45 INR (Anticoag Therapy) 2.46 (0.82-1.09) H 11/16/18 06:45 APTT >240.0 seconds (26.0-38.0) H* 11/14/18 03:54 Total Bilirubin 0.80 mg/dL (0.2-1.0) 11/13/18 15:52 AST 28 U/L (13-39) 11/13/18 15:52 ALT 20 U/L (7-52) 11/13/18 15:52 Alkaline Phosphatase 82 U/L (34-104) 11/13/18 15:52 B-Natriuretic Peptide > 1300 pg/mL (<=100) H 11/13/18 15:52 Total Protein 7.5 g/dL (6.4-8.9) 11/13/18 15:52 Albumin 3.4 g/dL (3.2-5.2) 11/13/18 15:52 Globulin 4.1 g/dL (2-4) H 11/13/18 15:52 Albumin/Globulin Ratio 0.8 (1-3) L 11/13/18 15:52 TSH 9.69 mcIU/mL (0.34-5.60) H 11/13/18 15:52 11/13/18 11/15/18 15:52 06:24 Troponin I 0.01 0.02 Diagnostic Imaging: * Transthoracic Echocardiogram Patient: Loli Krishnan : 1935 Study Date: 11/14/2018 Summary: - Left ventricle: Systolic function is moderately reduced. The estimated ejection fraction is 35-40%. - Right ventricle: Systolic function is moderately to severely reduced. - Left atrium: The atrium is severely dilated. - Right atrium: The atrium is severely dilated. - Mitral valve: There is moderate regurgitation. - Aortic valve: The findings are consistent with moderate to severe stenosis. The mean systolic gradient is 9.0 mm Hg. The valve area by the velocity-time integral method is 0.60 cm^2. The valve area by the peak velocity method is 0.50 cm^2. - Tricuspid valve: There is moderate regurgitation. - Pericardium, extracardiac: There is a left pleural effusion. - Pulmonary arteries: Systolic pressure is mildly increased. 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 Recent labile INR's per Dr Cruz. Commorbidities: macrocytic anemia and subclinical hypothyroidism. Atrial Fibrillation(on warfarin), , endometrial cancer with abdominal mets(s/p surgey , chemo and radiation), anorexia, poor nutrition . AFIB: -Continue metoprolol, could increase dose if rates increase with increased activity. -Dr Cruz's notes discuss desire for NOAC to replace coumodin. -Eliquis to replace coumpdin planned when INR drops. : Low gradient in mod-severe range. med manage. CM: New drop in EF, previously 55% @ [place]. On BB. May need to increase dose. BP too low and may be too tight for resumption of ENE-hold off for now. Was on Torsemide outpatient. Consider resuming and could alternate with aldactone if electrolytes tolerate.
[2018-11-16] MEDS: PTO: Travoprost Z 0.004% OPHTH (NF) 2.5 ML BTL BOTH EYES SCH (21:03)
[2018-11-17 05:50] LABS: INR 1.78 (0.82-1.09)
[2018-11-17 06:01] LABS: BUN/Creatinine Ratio 34.9 (8-20); Calcium 8.1 mg/dL (8.6-10.3); EGFR African American 76.4 (>60); EGFR Non-African American 63.2 (>60); Potassium 3.5 mmol/L (3.5-5.0)
--- NOTE | 2018-11-17 07:15 | PN ---
Subjective Date of Service: 11/17/18 Interval History: HD 5 on 11/17 83 F PMH endometiral Ca dx in 2016 s/p TAHBSO with c/o abdominal met s/p surgery , XBRT, and chemo, with again recurrent in 2018 sp resection, hx of chronic AF on warfarin AC, who presented with SOB, dizziness, found to be in RVR, new submassive PE, new HFrEF (35-40% from 55%). No acute overnight events VSS INR normolizing. NO recurrence of CA on CT Abd/Pel No complaint at present. HR still tachy. HR went to 122 while she was walking and saturation went down to 85% Needs subacute rehab [facility] Objective Active Medications: Aspirin (Aspirin Ec Tab*) 81 mg PO DAILY [facility] Atorvastatin Calcium (Lipitor*) 10 mg PO QAM [facility] Last Admin: 11/16/18 11:00 Dose: 10 mg Betaxolol HCl (Betoptic 0.05%*) 1 drop BOTH EYES QAM [facility] Last Admin: 11/16/18 11:00 Dose: 1 drop Diltiazem HCl (Diltiazem Iv Push/Loading Dose) 5 mg IV SLOW PU Q6H PRN PRN Reason: HEART RATE/PULSE GREATER THAN: Last Admin: 11/16/18 00:55 Dose: 5 mg Metoprolol Tartrate (Lopressor Tab*) 50 mg PO BID [facility] Last Admin: 11/16/18 21:03 Dose: 50 mg Multi-Ingredient Mouthwash/Gargle (Magic Mouth Was-Maikel/Maal/Lido*) 5 ml SWISH SPIT QID [facility] Last Admin: 11/16/18 21:03 Dose: 5 ml Spironolactone (Aldactone Tab*) 25 mg PO EVERY OTHER DAY [facility] Torsemide (Torsemide) 10 mg PO EVERY OTHER DAY [facility] Travoprost (Travatan Z 0.004% Opth (Nf)) 1 drop BOTH EYES BEDTIME [facility]; Protocol Last Admin: 11/16/18 21:03 Dose: 1 drop Vital Signs - 8 hr 11/16/18 11/17/18 11/17/18 23:15 00:20 03:35 Temperature 98.1 F 98.6 F Pulse Rate 102 93 Respiratory 18 18 Rate Blood Pressure 92/40 93/55 99/60 (mmHg) O2 Sat by Pulse 97 97 Oximetry Oxygen Devices in Use Now: Nasal Cannula Exam: Patient is sitting on a chair with nasal canula. HEENT: Normocepahlic and atraumatic Lungs: clear Heart: normal heart sound heard with systolic murmur on left sternal border.. Abdomen: Soft, nondistended and nontender Extremity: No swelling Neuro: Alert, conscious and oriented Result Diagrams: 11/16/18 06:45 11/18/18 05:30 Assess/Plan/Problems-Billing Assessment: 83 F PMH endometrial Ca dx in 2016 s/p TAHBSO with c/o abdominal met s/p surgery , XBRT, and chemo, with again recurrent in 2018 sp resection, hx of chornic AF on warfarin AC, who presented with SOB, dizziness, found to be in RVR, new submassive PE, new HFrEF. - Patient Problems (1) Atrial fibrillation with RVR Current Visit: Yes Status: Acute Code(s): I48.91 - UNSPECIFIED ATRIAL FIBRILLATION SNOMED Code(s): 599081966342658 Comment: - Rate controlled on Metoprolol Tartrate 50 BID, home dose - Likely triggered from edema and PE, improving with removal off volume (2) Pulmonary embolism on long-term anticoagulation therapy Current Visit: Yes Status: Acute Code(s): I26.99 - OTHER PULMONARY EMBOLISM WITHOUT ACUTE COR PULMONALE; Z79.01 - SCHOOL CAFETERIA HEAD COOK (CURRENT) USE OF ANTICOAGULANTS SNOMED Code(s): 279779317 Comment: - Acute on chronic PE even after being on warfarin. No e/o recurrence of Ca, likely from labile INR - Started Apixaban 10 mg PO BID- for 7 days then 5 mg bid (3) Anemia, macrocytic Current Visit: Yes Status: Acute Code(s): D53.9 - NUTRITIONAL ANEMIA, UNSPECIFIED SNOMED Code(s): 42267693 Comment: - May be due to early DANIE. Iron low - Normal B12, Folic Acid (4) Subclinical hypothyroidism Current Visit: Yes Status: Acute Code(s): E03.9 - HYPOTHYROIDISM, UNSPECIFIED SNOMED Code(s): 48401491 Comment: - Can be followed as outpt - TSH 9ish, T3/T4 normal, non contirbutory to RVR state (5) Endometrial adenocarcinoma Current Visit: Yes Status: Acute Code(s): C54.1 - MALIGNANT NEOPLASM OF ENDOMETRIUM SNOMED Code(s): 797455169 Comment: - Diagnosed in 2015 incidently when she had bladder prolapse., s/p resection of tumor with LLUVIA with BAL and extrenal beam radiation with carbo/ taxel recent resection on feb 2018 - Last f/u on clinic on may 2018 with no recurrence - CTAP shows no e/o recurrence on 11/15 (6) DVT prophylaxis Current Visit: Yes Status: Acute Code(s): Z29.9 - ENCOUNTER FOR PROPHYLACTIC MEASURES, UNSPECIFIED SNOMED Code(s): 959500544 Comment: - On eliquis; started today 10 mg BID (7) DNR (do not resuscitate) Current Visit: Yes Status: Acute Status and Disposition: Inpatient. PT advised for subacute rehb; case work aide working on it Attending: Loida Ruiz Attestation Documenting Resident: Sebas Supervising Physician: Joseph Attending/Supervising Physician Comment: Pending evaluation by PT for final discharge plan. Attestation: This service has been performed in part by a resident under the direction of a teaching physician.Joseph Joseph, performed the service, or was physically present during the critical, or cruz portions of the service, furnished by the resident. I participated in the management of the patient.
[2018-11-17] MEDS ORDERED: Apixaban* 5 MG TAB PO SCH (09:00)
[2018-11-17] MEDS: Atorvastatin* 10 MG TAB PO SCH (09:14)
[2018-11-17] MEDS: BETAXOLOL 0.5% BOTH EYES SCH (09:14)
[2018-11-17] MEDS: Aspirin EC TAB* 81 MG TAB.EC PO SCH (09:14)
[2018-11-17] MEDS: Metoprolol Tartrate TAB* 50 mg PO SCH ×2 (09:15→22:08)
[2018-11-17] MEDS: Magic Mouth Was-BEN/MAAL/LIDO SWISH SPIT SCH ×4 (09:15→22:10)
[2018-11-17] MEDS: Apixaban* 5 MG TAB PO SCH (22:08)
[2018-11-17] MEDS: PTO: Travoprost Z 0.004% OPHTH (NF) 2.5 ML BTL BOTH EYES SCH (22:10)
[2018-11-18 06:15] LABS: INR 2.58 (0.82-1.09)
[2018-11-18 06:23] LABS: BUN/Creatinine Ratio 39.2 (8-20); Calcium 8.4 mg/dL (8.6-10.3); EGFR African American 90.9 (>60); EGFR Non-African American 75.1 (>60); Potassium 4.1 mmol/L (3.5-5.0)
--- NOTE | 2018-11-18 07:03 | PN ---
Subjective Date of Service: 11/18/18 Interval History: HD 6 on 11/18 83 F PMH endometiral Ca dx in 2016 s/p TAHBSO with c/o abdominal met s/p surgery , XBRT, and chemo, with again recurrent in 2018 sp resection, hx of chronic AF on warfarin AC, who presented with SOB, dizziness, found to be in RVR, new submassive PE, new HFrEF (35-40% from 55%). No acute overnight events VS stable; although tachy metoprolol increased to 75 mg BID yesterday night No any complaint at present. doing well with PT. oliva discharged to [facility] Objective Active Medications: Apixaban (Eliquis*) 10 mg PO BID [facility] Stop: 11/24/18 09:01 Last Admin: 11/17/18 22:08 Dose: 10 mg Aspirin (Aspirin Ec Tab*) 81 mg PO DAILY [facility] Last Admin: 11/17/18 09:14 Dose: 81 mg Atorvastatin Calcium (Lipitor*) 10 mg PO QAM [facility] Last Admin: 11/17/18 09:14 Dose: 10 mg Betaxolol HCl (Betoptic 0.05%*) 1 drop BOTH EYES QAM [facility] Last Admin: 11/17/18 09:14 Dose: 1 drop Diltiazem HCl (Diltiazem Iv Push/Loading Dose) 5 mg IV SLOW PU Q6H PRN PRN Reason: HEART RATE/PULSE GREATER THAN: Last Admin: 11/16/18 00:55 Dose: 5 mg Metoprolol Tartrate (Lopressor Tab*) 75 mg PO BID [facility] Last Admin: 11/17/18 22:08 Dose: 75 mg Multi-Ingredient Mouthwash/Gargle (Magic Mouth Was-Maikel/Maal/Lido*) 5 ml SWISH SPIT QID [facility] Last Admin: 11/17/18 22:10 Dose: 5 ml Spironolactone (Aldactone Tab*) 25 mg PO EVERY OTHER DAY [facility] Torsemide (Torsemide) 10 mg PO EVERY OTHER DAY [facility] Travoprost (Travatan Z 0.004% Opth (Nf)) 1 drop BOTH EYES BEDTIME [facility]; Protocol Last Admin: 11/17/18 22:10 Dose: 1 drop Vital Signs - 8 hr 11/17/18 11/18/18 23:15 01:55 Temperature 98.1 F Pulse Rate 105 Respiratory 18 Rate Blood Pressure 106/60 (mmHg) O2 Sat by Pulse 97 97 Oximetry Oxygen Devices in Use Now: Nasal Cannula Exam: Patient is sitting on a chair with nasal canula. HEENT: Normocepahlic and atraumatic Lungs: clear Heart: normal heart sound heard with systolic murmur on left sternal border.. Abdomen: Soft, nondistended and nontender Extremity: No swelling Neuro: Alert, conscious and oriented Result Diagrams: 11/16/18 06:45 11/18/18 05:30 Assess/Plan/Problems-Billing Assessment: 83 F PMH endometrial Ca dx in 2016 s/p TAHBSO with c/o abdominal met s/p surgery , XBRT, and chemo, with again recurrent in 2018 sp resection, hx of chornic AF on warfarin AC, who presented with SOB, dizziness, found to be in RVR, new submassive PE, new HFrEF. apixiban started - Patient Problems (1) Atrial fibrillation with RVR Current Visit: Yes Status: Acute Code(s): I48.91 - UNSPECIFIED ATRIAL FIBRILLATION SNOMED Code(s): 354969382211884 Comment: - Rate controlled on Metoprolol Tartrate 50 BID, home dose - Likely triggered from edema and PE, improving with removal off volume (2) Pulmonary embolism on long-term anticoagulation therapy Current Visit: Yes Status: Acute Code(s): I26.99 - OTHER PULMONARY EMBOLISM WITHOUT ACUTE COR PULMONALE; Z79.01 - DISCHARGE COORDINATOR (CURRENT) USE OF ANTICOAGULANTS SNOMED Code(s): 427382955 Comment: - Acute on chronic PE even after being on warfarin. No e/o recurrence of Ca, likely from labile INR - Started Apixaban 10 mg PO BID- for 7 days then 5 mg bid (3) Anemia, macrocytic Current Visit: Yes Status: Acute Code(s): D53.9 - NUTRITIONAL ANEMIA, UNSPECIFIED SNOMED Code(s): 30214372 Comment: - May be due to early DANIE. Iron low - Normal B12, Folic Acid (4) Subclinical hypothyroidism Current Visit: Yes Status: Acute Code(s): E03.9 - HYPOTHYROIDISM, UNSPECIFIED SNOMED Code(s): 63708814 Comment: - Can be followed as outpt - TSH 9ish, T3/T4 normal, non contirbutory to RVR state (5) Endometrial adenocarcinoma Current Visit: Yes Status: Acute Code(s): C54.1 - MALIGNANT NEOPLASM OF ENDOMETRIUM SNOMED Code(s): 524126706 Comment: - Diagnosed in 2014 incidently when she had bladder prolapse., s/p resection of tumor with LLUVIA with BAL and extrenal beam radiation with carbo/ taxel recent resection on feb 2018 - Last f/u on clinic on may 2018 with no recurrence - CTAP shows no e/o recurrence on 11/15 (6) DVT prophylaxis Current Visit: Yes Status: Acute Code(s): Z29.9 - ENCOUNTER FOR PROPHYLACTIC MEASURES, UNSPECIFIED SNOMED Code(s): 880217487 Comment: - On eliquis; started today 10 mg BID (7) DNR (do not resuscitate) Current Visit: Yes Status: Acute Status and Disposition: Inpatient. can be discharged. accepted by art Attending: Loida Ruiz Attestation Documenting Resident: Juan Mullen Supervising Physician: Joseph Mariscal Attestation: This service has been performed in part by a resident under the direction of a teaching physician.I, Joseph Mariscal, performed the service, or was physically present during the critical, or cruz portions of the service, furnished by the resident. I participated in the management of the patient.
[2018-11-18 07:12] LABS: Magnesium 1.6 mg/dL (1.9-2.7)
[2018-11-18] MEDS ORDERED: Spironolactone TAB* 25 MG PO SCH (09:00)
[2018-11-18] MEDS: Apixaban* 5 MG TAB PO SCH (09:59)
[2018-11-18] MEDS: BETAXOLOL 0.5% BOTH EYES SCH (09:59)
[2018-11-18] MEDS: Aspirin EC TAB* 81 MG TAB.EC PO SCH (09:59)
[2018-11-18] MEDS: Magic Mouth Was-BEN/MAAL/LIDO SWISH SPIT SCH ×3 (09:59→16:11)
[2018-11-18] MEDS: Atorvastatin* 10 MG TAB PO SCH (10:00)
[2018-11-18] MEDS: Metoprolol Tartrate TAB* 50 mg PO SCH (10:00)
[2018-11-18] MEDS ORDERED: Magnesium Sulfate 2 GM IV* 2 GM/50 ML BAG IVPB ONE (10:42)
--- NOTE | 2018-11-18 13:12 | DS ---
CC: Dr. Tammy Holliday; Dr. Brittni Lowe DATE OF ADMISSION: 11/13/2018. DATE OF DISCHARGE: 11/18/2018. PRIMARY CARE PHYSICIAN: Dr. Tammy Holliday. PRIMARY DIAGNOSES: 1. Atrial fibrillation with rapid ventricular response. 2. Pulmonary embolism. 3. Aortic stenosis. 4. Heart failure with reduced ejection fraction 35 percent. SECONDARY DIAGNOSES: 1. Endometrial cancer, status post TAHBSO, x-ray therapy and chemo. 2. Macrocytic anemia. CONSULTATIONS: Dr. Brittni Lowe of Cardiology. DISCHARGE MEDICATIONS: 1. Apixaban 10 mg twice a day for 6 more days, then 5 mg twice a day indefinitely. 2. Aspirin 81 mg daily. 3. Atorvastatin 10 mg daily. 4. Metoprolol Tartrate 75 mg twice a day. 5. Spironolactone 25 mg every other day. 6. Torsemide 10 mg every other day. HISTORY OF PRESENT ILLNESS: Ms. Krishnan is an 83-year-old woman with a history of metastatic endometrial cancer , status post surgical resection, x-ray therapy and chemo, in remission; chronic atrial fibrillation; hypertension; COPD versus pulmonary fibrosis; and chronic back pain who has had progressive dyspnea for possible several months. She was advised in the springtime to consider cardioversion versus a pacemaker, but states she did not want to "go down," clarifying she does not want an operation. She is somewhat leery of cardioversion given that there is not 100 percent chance that she would maintain sinus rhythm after this attempt. A recent TTE showed moderate aortic stenosis and possibly moderate to severe with an EF of 50 to 55 percent. She has been taking her Coumadin consistently without missed doses and her INR previously was at goal, although it appears she has had frequent subtherapeutic INR's. She saw her manager pathology, Dr. Higgins, on the day of presentation. Because her heart rate was elevated, he recommended to go down to [facility] for cardioversion and a Tikosyn load; however, the patient did not want to travel to [place] and instead preferred coming to [facility]. HOSPITAL COURSE: In the ER, she was found to be in atrial fibrillation with RVR with rates initially in the 120s to 140s. She was given 10 mg of Diltiazem. She had a D- dimer of 612 and a BNP greater than 1300 without prior records in our system. She was previously on Torsemide 10 mg daily without recent missed doses. A chest x-ray showed diffuse pattern of ventricular opacification when compared to previous CT, which probably represents pulmonary interstitial edema superimposed on her chronic pulmonary fibrotic changes. A CTA was performed and demonstrated no filling defect in the right lower lobe consistent with pulmonary embolism. There was evidence of right heart strain, but no hemodynamic compromise. She also had interval development of diffuse septal thickening and perihilar ground glass opacities likely representing pulmonary edema secondary to CHF. She was referred to the Hospitalist Service for management of A-fib with RVR, new diagnosis of pulmonary embolism, and acute on chronic heart failure exacerbation. Cardiology consult was obtained. While Cardiology did offer cardioversion, the patient declined and she was rate controlled with Metoprolol. It was recommended for the patient to be switched to a NOAC from Coumadin given labile INR's, so she was started on Apixaban when her INR decreased below 2. It was recommended that she obtain a transthoracic echocardiogram which showed a newly reduced ejection fraction to 35 to 40 percent. As above, she was initiated on a beta erika, but not on an ENE inhibitor given her low to normal blood pressures. The patient was started on Torsemide every other day with Spironolactone on alternating days after she was more aggressively diuresed with IV Furosemide. She was seen and evaluated by Physical Therapy who recommended discharge to subacute rehab. PERTINENT DIAGNOSTIC STUDIES: 1. Hemoglobin 11.1 with MCV 109. 2. Vitamin B12 552 and folate over 20, iron low at 39 with TIBC low at 220, percent saturation 18. A ferritin was not checked. 3. INR on presentation 3.8. 4. Creatinine on discharge 0.74. 5. TSH 9.6 with normal free T4 and normal total T3. 6. UA significant for hyaline casts. 7. Transthoracic echocardiogram: LV with systolic function mildly reduced to EF 35 to 40 percent, RV systolic function moderately to severely reduced, LA and RA severely dilated, mitral valve with moderate regurgitation, aortic valve consistent with moderate to severe stenosis with mean systolic gradient 9.0 mmHg , the valve area by the velocity time integral method is 0.60 cm2, the valve area by the peak velocity method is 0.50 cm2, tricuspid valve with moderate regurg, pericardium extrathoracic with a left pleural effusion, pulmonary artery systolic pressure mildly increased, peak pressure during systole by Doppler is 41. 8. Chest/thorax CTA: The study is positive for new filling defect in the right lower lobe pulmonary artery consistent with pulmonary embolus with irregular contour suggesting subacute or chronic clot; however, there is evidence of right heart strain with RV to LV ratio 1 to 3. Cardiomegaly and dilated right heart chambers with evidence of elevated right heart pressure and dilated right heart chambers, new since prior. Interval development of diffuse septal thickening and perihilar ground glass opacities likely representing pulmonary edema secondary to CHF. Evidence of pulmonary fibrotic change. 9. Abdomen and pelvis CT with mild to moderate bilateral pleural effusions and bibasilar infiltrates correlating with congestive heart failure on the patient' s prior chest x-ray study. Moderate gastric distention. No evidence for metastatic disease. DISCHARGE PLAN: The patient is to be discharged to [facility] for rehabilitation. She should continue on medications as listed above, notably with new medications of Apixaban instead of Warfarin for anticoagulation. Her Eliquis dose should be decreased to 5 mg twice a day on November 23. She will also be continued on Torsemide every other day with the addition of Spironolactone on the opposite day. She should follow-up with her primary care physician, Dr. Holliday, as well as her manager pathology, Dr. Higgins and her oncologist Dr. Hillman. She should continue to have ongoing monitoring of her volume status and electrolytes and renal function. DIET: She should eat a healthy diet low in processed foods. ACTIVITY: As tolerated with physical therapy per rehab. DISPOSITION: [facility]. CONDITION ON DISCHARGE: Improved. TIME SPENT: Approximately 60 minutes were spent on the discharge of this patient, more than half of which was spent with care coordination at bedside for interview and exam. [id number]/[facility] #: [id number] MTDFlavia
[2018-11-18 15:53] VITALS: BP 91/54
[2018-11-19] MEDS ORDERED: Torsemide TAB 10 MG PO SCH (09:00)
== END 2018-11-18 17:40 | DRG 308 ==
LOC: ED 15:14 → MEDTELE 21:41 → OBSVTOIN 22:00
PROVIDERS: ADMIT Internal Medicine; ATTEND Internal Medicine
DX: I48.2 Chronic atrial fibrillation (principal); I26.99 Other pulmonary embolism without acute cor pulmonale; I50.33 Acute on chronic diastolic (congestive) heart failure; I27.82 Chronic pulmonary embolism; E87.70 Fluid overload, unspecified; I11.0 Hypertensive heart disease with heart failure; J44.9 Chronic obstructive pulmonary disease, unspecified; D53.9 Nutritional anemia, unspecified; E02 Subclinical iodine-deficiency hypothyroidism; Z66 Do not resuscitate; H40.9 Unspecified glaucoma; G89.29 Other chronic pain; I08.0 Rheumatic disorders of both mitral and aortic valves; Z85.89 Personal history of malignant neoplasm of other organs and systems; Z92.3 Personal history of irradiation; Z92.21 Personal history of antineoplastic chemotherapy; Z79.01 Long term (current) use of anticoagulants; Z79.82 Long term (current) use of aspirin; Z79.899 Other long term (current) drug therapy; Z91.030 Bee allergy status; Z80.51 Family history of malignant neoplasm of kidney
CPT/HCPCS: 36415; 71045; 71275; 74177; 80048; 80053; 81003; 81015; 82607; 82746; 83540; 83550; 83735; 83880; 84439; 84443; 84479; 84484; 85025; 85060; 85379; 85610; 85730; 93005; 93306; 99285; A9270-GY; G8978-GP-CK; G8979-GP-CI; G8987-GO-CJ; G8988-GO-CI; J1644; J1940; J3475; J3490; Q9967

== ENCOUNTER 2018-12-03 13:40 | Inpatient (IN) | payer MEDICARE, OTHER ==
--- NOTE | 2018-12-03 13:50 | ED ---
Complex/Multi-Sys Presentation - HPI Summary HPI Summary: Patient is a 83 y/o F presenting to [facility] via EMS from [place] due to decreased PO intake. Patient reports that she has not been eating or drinking as she has pain with bowel movement which she characterizes as "needles coming out". Daughters, who are present in the room, report that they would like to have a PEG tube placed, which the patient states she wants as well. Daughters had wanted the patient to come here for possible PEG tube. It is also reported that the daughter wanted the patient to receive a pacemaker. In the room, she is agreeable with a feeding tube. She additionally notes that she has a fall a few days ago and has a bruise to left anterior chest. She does not have teeth or taste buds. Daughter reports that the patient had claimed that there was a partial blockage in her throat. Patient needs to turn her head to drink, but is able to take fluids PO. PMHx of afib, blood clots noted as well. Daughter reports that the patient has been getting weak and the patient states that she has been having "funny twinges of my heart" over the past few weeks. Daughter states that the patient was evaluated by Dr. Lowe previously and wants her to be evaluated by Dr. Lowe, have her become her patient, and have her evaluated for need for pacemaker. Home medications and allergies are reviewed. - History Of Current Complaint Time Seen by Provider: 12/03/18 13:43 Hx Obtained From: Patient Onset/Duration: Lasting Days Timing: Constant Location: Pain At: - "funny twinges of my heart" Associated Signs And Symptoms: Positive: Chest Pain - "funny twinges of my heart ", Other - positive - decreased PO intake, pain with BM, fall a few days ago, bruise to left chest, reports partial blockage in throat, fatigue, - Allergies/Home Medications Allergies/Adverse Reactions: Allergies Allergy/AdvReac Type Severity Reaction Status Date / Time bee venom protein (honey bee) Allergy See Comment Verified 11/14/18 10:21 Home Medications: Home Medications Acetaminophen TAB* [Tylenol TAB*] 325 mg PO Q4H PRN 12/03/18 [History Confirmed 12/03/18] Apixaban* [Eliquis*] 5 mg PO BID 12/03/18 [History Confirmed 12/03/18] Ipratropium/Albuterol Sulfate [Iprat-Albut 0.5-3(2.5) mg/3 ml] 3 ml INH Q4HR PRN 12/03/18 [History Confirmed 12/03/18] Levothyroxine TAB* [Synthroid TAB*] 25 mcg PO DAILY 12/03/18 [History Confirmed 12/03/18] Metoprolol Tartrate TAB* [Lopressor TAB*] 75 mg PO BID 12/03/18 [History Confirmed 12/03/18] Mirtazapine TAB* [Remeron TAB*] 15 mg PO BEDTIME 12/03/18 [History Confirmed 04/22] Polyethylene Glycol 3350* [Miralax*] 17 gm PO DAILY 12/03/18 [History Confirmed 12/03/18] traMADol TAB* [Ultram*] 25 mg PO Q6HR PRN 12/03/18 [History Confirmed 12/03/18] PMH/Surg Hx/FS Hx/Imm Hx Endocrine/Hematology History: Reports: Hx Diabetes Denies: Hx Systemic Lupus Erythematosus Cardiovascular History: Reports: Hx Atrial Fibrillation, Hx Congestive Heart Failure - new, Hx Hypercholesterolemia, Hx Hypertension, Other Cardiovascular Problems/Disorders - Atrial Fibrillation-on warfarin, Hypercholesterolemia Denies: Hx Pacemaker/ICD Respiratory History: Denies: Other Respiratory Problems/Disorders GI History: Reports: Hx Gastroesophageal Reflux Disease, Other GI Disorders - Removal of abdominal wall mass,[id number] appetite History: Reports: Hx Renal Disease - abnormal gfr, Other Problems/ Disorders - UTI, Hysterectomy- found endometrial cancer-2014 Denies: Hx Dialysis Musculoskeletal History: Denies: Hx Rheumatoid Arthritis, Other Musculoskeletal History Sensory History: Reports: Hx Contacts or Glasses - Glasses, Hx Glaucoma Denies: Hx Cataracts, Hx Hearing Aid Opthamlomology History: Reports: Hx Contacts or Glasses - Glasses, Hx Glaucoma Denies: Hx Cataracts Neurological History: Denies: Other Neuro Impairments/Disorders Psychiatric History: Denies: Hx Panic Disorder - Cancer History Cancer Type, Location and Year: malig neoplasm corpus uteri Hx Chemotherapy: Yes - a few weeks ago with dr alex Fox Radiation Therapy: No - Surgical History Surgery Procedure, Year, and Place: hysterectomy, cervical prolapse, tumors removed L abd. and fachia, Hx Anesthesia Reactions: No - Family History Known Family History: Positive: Other - kidney CA - Social History Alcohol Use: None Hx Substance Use: No Substance Use Type: Reports: None Hx Tobacco Use: Yes Smoking Status (MU): Never Smoked Tobacco Have You Smoked in the Last Year: No Review of Systems Positive: Fatigue ENT: Other - reported sensation of partial blockage of throat Positive: Chest Pain - "funny twinges of my heart" Gastrointestinal: Other - positive - decreased PO intake Genitourinary: Other - pain with BM Positive: Bruising All Other Systems Reviewed And Are Negative: Yes Physical Exam - Summary Physical Exam Summary: VITAL SIGNS: Reviewed. GENERAL: Patient is a well-developed, elderly, and nourished female who is lying comfortable in the stretcher. Patient is not in any acute distress. HEAD AND FACE: No signs of trauma. No ecchymosis, hematomas or skull depressions. No sinus tenderness. EYES: PERRLA, EOMI x 2, No injected conjunctiva, no nystagmus. EARS: Hearing grossly intact. Ear canals and tympanic membranes are within normal limits. MOUTH: Oropharynx within normal limits. Dry oral mucosa noted. NECK: Supple, trachea is midline, no adenopathy, no JVD, no carotid bruit, no c- spine tenderness, neck with full ROM. CHEST: Symmetric, no tenderness at palpation. LUNGS: Clear to auscultation bilaterally. No wheezing or crackles. CVS: Tachycardia with iregular rate and rhythm, S1 and S2 present, no murmurs or gallops appreciated. ABDOMEN: Soft, non-tender. No signs of distention. No rebound, no guarding, and no masses palpated. Bowel sounds are normal. EXTREMITIES: FROM in all major joints, no edema, no cyanosis or clubbing. NEURO: Alert and oriented x 3. No acute neurological deficits. Speech is normal and follows commands. SKIN: Dry and warm with increased turgor. Ecchymosis of left anterior chest. Triage Information Reviewed: Yes Vital Signs On Initial Exam: Initial Vitals Pulse Pulse Ox 119 100 12/03/18 13:43 12/03/18 13:43 Vital Signs Reviewed: Yes Procedures - Sedation Patient Received Moderate/Deep Sedation with Procedure: No Diagnostics - Laboratory Result Diagrams: 12/05/18 05:56 12/05/18 05:56 Lab Statement: Any lab studies that have been ordered have been reviewed, and results considered in the medical decision making process. - Radiology CXR Radiology Interpretation Completed By: Radiologist Summary of Radiographic Findings: IMPRESSION: 1. CARDIOMEGALY. 2. THERE IS DIFFUSE PATTERN OF INTERSTITIAL OPACIFICATION HAS PROGRESSED FROM THE. 2018 EXAMINATION. 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 THIS REPORT WAS REVIEWED BY DR. CLARK. - EKG 1359 Cardiac Rate: Other Rate - afib with rate of 119 BPM EKG Rhythm: Atrial Fibrillation EKG Comparison: No Significant Change - compared to 11/13/18 Summary of EKG Findings: EKG showed afib with rate of 119 BPM, EKG is similar to prior 11/13/18. EKG was reviewed and interpreted by ED physician. Complex Multi-Symp Course/Dx Assessment/Plan: This patient is an 83-year-old female who presents to the emergency department from senior living complaining that the patient is unable to eat. The patient reports that she wants to be assessed for a PEG tube. Hospital daughter states the patient is not eating and drinking for the last couple weeks. Lab results shows sinus slight decrease in hemoglobin to 11.5, INR is 6.20 and PTT of 44.3. The patient is not taking any Coumadin but is taking Eliquis. BUN is 71, creatinine is 1.1, glucose 142, CRP is 54, BNP is more than 1300. TSH is 11.9. CXR IMPRESSION: 1. CARDIOMEGALY. 2. THERE IS DIFFUSE PATTERN OF INTERSTITIAL OPACIFICATION HAS PROGRESSED FROM THE 2018 EXAMINATION. 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 Patient seems to be very dehydrated, the patient does have very dry oral mucosa increased turgor of the skin and a BUN is 71. Therefore I believe that the patient would benefit some IV fluids. The patients blood pressure is also on the low side. Therefore, I discussed my physical exam and findings with Dr. Baldwin from the hospital services who agrees with the management and if needed she will get diuretics. Dr. Baldwin agreed to take the patient for admission to her service. - Diagnoses Provider Diagnoses: FTT (failure to thrive) in adult, Atrial fibrillation, CHF (congestive heart failure), Elevated INR - Physician Notifications Discussed Care Of Patient With: Vaishnavi Baldwin Time Discussed With Above Provider: 15:14 Instructed by Provider To: Other - Patient's case was discussed with Dr. Baldwin , Dr. Baldwin accepts for admission. Discharge ED - Sign-Out/Discharge Documenting (check all that apply): Patient Departure - admit - Discharge Plan Condition: Stable Disposition: ADMITTED TO [facility] - Billing Disposition and Condition Condition: STABLE Disposition: Admitted to [facility] - Attestation Statements Document Initiated by Scribe: Yes Documenting Scribe: TOMMIE ALEGRIA Provider For Whom Kerry is Documenting (Include Credential): PB CLARK MD Scribe Attestation: TOMMIE Joseph, scribed for PB CLARK MD on 12/05/18 at 1351. Scribe Documentation Reviewed: Yes Provider Attestation: The documentation as recorded by the TOMMIE dorman accurately reflects the service I personally performed and the decisions made by PB heller MD Status of Scribe Document: Viewed
[2018-12-03] MEDS ORDERED: NS 0.9% 1000 ML** 1,000 ML IV ONE (13:56)
--- OUTSIDE RECORDS SUMMARY | 2018-12-03 14:05 | XMS REPORT | Summary of Care ---
:1935 Author Organization [facility] Address [address] [facility] [place] [address] Care Team Providers Name Role Phone Tammy Holliday MD Primary Care Provider Jorge Luis Ingram MD Primary Family Nurse/Bead Cutter Reason for Visit Reason Comments Follow Up HTN managment Encounter Details Date Type Department Care Team Description 10/14/2018 Office Visit Rashi Holliday, Type 2 diabetes mellitus with complication, without long-term current use of insulin (HCC) (Primary Dx); Practice MD Tammy SOB (shortness of breath); [address] Other iron deficiency anemia; [place] [address] [place] [address] Malaise and fatigue [phone] Allergies Active Allergy Reactions Severity Noted Date Comments Lansoprazole-Naproxen Other 08/12/2007 Unknown Bee Sting Anaphylaxis High 11/22/2009 Probable yellow jacket documented as of this encounter (statuses as of 10/14/2018) Medications Medication Sig Dispensed Refills Start Date End Date Status ONE TOUCH ULTRA USE DIRECTED 100 Each 5 10/15/2012 Active TEST STRIPS In TWO TIMES A DAY Vitro Strip betaxolol Place 1 Drop in 0 Active (BETOPIC) 0.5 % both eyes EVERY Ophthalmic MORNING. Solution Travoprost Place 1 Drop in 0 Active (TRAVATAN Z) 0.004 both eyes EVERY % Ophthalmic BEDTIME. Solution metoprolol Take 1 Tab by 180 Tab 3 03/19/2018 Active (LOPRESSOR) 50 MG mouth TWICE Oral DAILY. TabIndications: Paroxysmal atrial fibrillation (HCC) atorvastatin Take 1 Tab by 90 Tab 1 05/22/2018 Active (LIPITOR) 10 MG mouth DAILY. Oral Tab glipiZIDE Take 0.5 Tabs 45 Tab 1 05/22/2018 Active (GLUCOTROL) 5 MG by mouth DAILY. Oral Tab torsemide Take 1 Tab by 90 Tab 3 05/23/2018 Active (DEMADEX) 10 MG mouth DAILY. Oral TabIndications: Chronic diastolic CHF (congestive heart failure) (HCC) Multiple Vitamin Take 1 Tab by 0 09/10/2018 Active (DAILY VITAMIN) mouth DAILY. Oral Indications: TabIndications: vit k 25mcg/tab vit k 25mcg/tab warfarin Take 0.5 Tabs 30 Tab 0 09/24/2018 Active (COUMADIN) 5 MG by mouth DAILY. Oral Tab Not currently in use aspirin (ECOTRIN) Take 81 mg by 0 Active 81 MG Oral Tab EC mouth DAILY NEEDED. warfarin Take 1 Tab by 90 Tab 3 10/01/2018 Active (COUMADIN) 2.5 MG mouth DAILY. As Oral directed which TabIndications: is 2.5mg Atrial Sun/Tue/Mary. fibrillation, 1.25mg unspecified type remaining days (HCC) of week ramipril (ALTACE) Take 1 Cap by 30 Cap 1 10/14/2018 Active 5 MG Oral Cap mouth DAILY. EPINEPHrine 0.3 0.3 mg by 1 Each 1 07/23/2016 10/14/2018 Discontinued MG/0.3ML Injection Injection route Solution NEEDED (bee Auto-injector sting). ramipril (ALTACE) TAKE 1 CAPSULE 90 Cap 3 07/14/2018 10/14/2018 Discontinued 10 MG Oral BY MOUTH DAILY CapIndications: Chronic diastolic congestive heart failure (HCC) sulfamethoxazole-t Take 1 Tab by 14 Tab 0 10/07/2018 10/14/2018 Discontinued rimethoprim mouth TWICE (BACTRIM DS, DAILY. SEPTRA DS) 800-160 MG Oral Tab documented as of this encounter (statuses as of 10/14/2018) Active Problems Problem Noted Date Chronic diastolic [...] in the uterine fundus. 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 current use of anticoagulant therapy 04/08/2012 Overview: Managed by [facility] referred by Dr Mg Bailon [...] as of this encounter (statuses as of 10/14/2018) Resolved Problems Problem Noted Date Resolved Date Abdominal pain, acute, left lower quadrant 12/30/2014 11/22/2017 Caput medusae 03/17/2014 08/02/2014 documented as of this encounter (statuses as of 10/14/2018) Immunizations Name Administration Dates Next Due Influenza [...] Sign Reading Time Taken Comments Blood Pressure 99/59 10/14/2018 11:28 AM EDT Pulse 90 10/14/2018 10:29 AM EDT Temperature - - Respiratory Rate - - Oxygen Saturation 97% 10/14/2018 10:29 AM EDT Inhaled Oxygen Concentration - - Weight 49.6 kg (109 lb 4.8 oz) 10/14/2018 10:29 AM EDT Height 166.4 cm (5' 5.5") 10/14/2018 10:29 AM EDT Body Mass Index 17.91 10/14/2018 10:29 AM EDT documented in this encounter Patient Instructions Patient InstructionsTammy Holliday MD - 10/14/2018 10:40 AM EDT1. Change Altace to 5 mg once a day 2. Follow up in 2 weeks 3. Please reschedule appointment with Dr. Hillman documented in this encounter Progress Notes Tammy Holliday MD - 10/14/2018 10:40 AM EDT Patient: Loli Krishnan Date of Service: 10/14/2018 Subjective: Loli Krishnan is a 83-y.o. female who presents for Chief Complaint Patient presents with Follow Up HTN managment Patient comes with complains of fatigue, exertional SOB. Had recent episode of fall - felt very weak, "numb all over". Had troubles getting up after a fall. Denies chest pain, LOC, seizures. Concerns about BP being to low She also was diagnosed with , in chronic atrial fibrillation HR is sub optimal. 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 Was treated with surgical excision Failed to follow with oncology as was advised. Has more "important problems" Due for blood tests for DM. Has chronic bilateral feet numbness Past Medical History: Diagnosis Date Atrial fibrillation (HCC) 04/08/2012 DM (diabetes mellitus) (HCC) Eczema 08/12/2007 Endometrial cancer (HCC) GERD (gastroesophageal reflux disease) 08/12/2007 Hyperlipidemia 08/12/2007 Hypertension 08/12/2007 MVP (mitral valve prolapse) 08/12/2007 mild MR Peripheral neuropathy 08/12/2007 Spinal stenosis, lumbar region, without neurogenic claudication L4-L5 Outpatient Medications as of 10/14/2018 Medication Sig Dispense Refill aspirin (ECOTRIN) 81 [...] current facility-administered medications on file as of 10/14/2018. Allergies Allergen Reactions Sting [Bee Sting] Anaphylaxis Probable yellow jacket Prevacid Naprapac [Lansoprazole-Naproxen] Other Unknown Review of Systems: All remaining review of systems was negative. Objective: BP 99/59 (BP Location: Right arm, Patient Position: Standing) Pulse 90 Ht 5' 5.5" (1.664 m) Wt 109 lb 4.8 oz (49.6 kg) SpO2 97% BMI 17.91 kg/m2 GENERAL: alert, fatigued THROAT: lips, mucosa, and tongue normal: teeth and gums normal NECK: supple, symmetrical, trachea midline and no adenopathy LUNGS: clear to auscultation bilaterally HEART: irregularly irregular rhythm EXTREMITIES: no edema, varicose veins noted Examination of the feet reveals warm, good capillary refill, normal DP and PT pulses and reduced sensation at both feet to the level of the ankles NEUROLOGIC: Grossly normal EKG: unchanged from previous tracings, atrial fibrillation, rate 118. ICD-9-CM ICD-10-CM 1. Type 2 diabetes mellitus with complication, without long-term current use of insulin (HCC) 250.90E11.8 COMPREHENSIVE METABOLIC PANEL GLYCOHEMOGLOBIN A1C 2. SOB (shortness of breath) 786.05 R06.02 3. Other iron deficiency anemia 280.8 D50.8 FERRITIN IRON CBC WITH DIFFERENTIAL 4. Malaise and fatigue 780.79 R53.81 No orthostatic BP change, but BP is low Will reduce Altace Also - will need to recheck anemia R53.83 Patient Instructions 1. Change Altace to 5 mg once a day 2. Follow up in 2 weeks 3. Please reschedule appointment with Dr. Rafy CARMONA patient personal alarm system. Declines Author: Tammy Holliday MD documented in this encounter Plan of Treatment Date Type Specialty Care Team Description 10/29/2018 AntiCoag Anticoagulation 10/29/2018 Office Visit Family Practice Tammy Holliday MD [address] [place] [id number] [phone] 03/18/2019 Orders Only Cardiology 03/26/2019 Office Visit Cardiology Alex Higgins MD [address] [place] [address] [phone] Name Type Priority Associated Diagnoses Order Schedule COMPREHENSIVE METABOLIC Lab Routine Type 2 diabetes Ordered: 10/14/2018 PANEL mellitus with complication, without long-term current use of insulin ([facility]) GLYCOHEMOGLOBIN A1C Lab Routine Type 2 diabetes Ordered: 10/14/2018 mellitus with complication, without long-term current use of insulin ([facility]) FERRITIN Lab Routine Other iron deficiency Ordered: 10/14/2018 anemia IRON Lab Routine Other iron deficiency Ordered: 10/14/2018 anemia CBC WITH DIFFERENTIAL Lab Routine Other iron deficiency Ordered: 10/14/2018 anemia AMBULATORY 12 LEAD EKG EKG Routine SOB (shortness of Ordered: 10/14/2018 (GLOBAL) breath) Health Maintenance Due Date Last Done Comments HIV SCREENING 1950 ZOSTER IMMUNIZATION SERIES 02/11/2017 12/17/2016 (2 of 3) MEDICARE ANNUAL WELLNESS 12/03/2017 12/03/2016, 04/08/2012 VISIT HEMOGLOBIN A1C 10/21/2018 04/23/2018, 07/24/2017, 03/18/2017, Additional history exists INFLUENZA VACCINE (#1) 2018 11/08/2017, 12/03/2016, 12/14/2015, Additional history exists DEPRESSION SCREENING 08/14/2019 08/13/2018 [...] Problems Progress Blood Pressure Blood Pressure Hypertension 99/59 No Mg, < 140/90 (10/14/2018 Tammy, 11:28 AM EDT) Note: Hypertension Care Plan Based [...] Educational Resources: National Heart, Lung, & Blood [place] http://nhlbi.nih.gov/hbp/index.html The DASH Diet Eating Plan http://www.nhlbi.nih.gov/health/health-topics/ topics/dash/ Academy of Nutrition & DIetetics http://eatright.org National Smoking Cessation Site http://smokefree.gov Blood Pressure < Blood Pressure 99/59 (10/14/2018 11:28 No Kay Hammond PA-C 140/90 AM EDT) Note: This is an individualized treatment (blood pressure) goal for Loli Alatorre Krishnan: Displayed above (on the left) is your goal for blood pressure control. Your most recent blood pressure is also shown above, on the right. You should try to achieve blood pressures that are lower than your goal listed above (on the left). Weight increase vs. 18 CHF 0 (10/14/2018 10:29 AM EDT) No Tammy Holliday MD mo min (lbs) < 5 Note: This is an individualized treatment (congestive [...] left). Diabetes < 7.0 Diabetes DM (diabetes 5.5 (07/24/2017 No Galseble, mellitus) 9:19 AM EDT) MD Tammy Note: Diabetes Care [...] my blood sugar results (including dextrose sticks). [facility] [employer] is safe and secure way for you [...] towards quitting. Glycohemoglobin A1c < 7.0 Diabetes 5.5 (07/24/2017 9:19 AM No Kay Hammond PA-C EDT) Note: [...] is an individualized lifestyle goal for Loli Alatorre Ariella: Please be sure to keep up-to-date on recommended immunizations. For example, this would include a yearly influenza vaccine. Immunization status can be seen by looking at the Health Maintenance sections of your e[employer], Plan of Care, and any After Visit Summaries. Consume a [id number] diet Lifestyle No Tammy Holliday MD Note: This is an individualized lifestyle goal for Loli Alatorre Krishnan: Please do not add additional salt to your food. Additional salt may lead to fluid retention and worsen your congestive heart failure. Take all prescribed medications as Self-management No Kay Hammond PA-C directed Note: This is an individualized self-management goal for Loli Alatorre Krishnan: Please take all prescribed medications as [...] ongoing basis. Check your weight daily Self-management Tammy Kim MD Note: This is an individualized self-management goal for Loli Krishnan: Please check your weight daily. Refer to the accompanying CHF treatment goal and call your doctor immediately for further instructions on how to respond to unexpected weight gain. documented as of this encounter Implants Implanted Type Area Machine Feeder Floorperson Device Shelf Model / Identifier Expiration Serial / Date Lot Sofie Hill - [id number] N/A: Uterus BOSTON [id number] / Implanted: Qty: 1 on 07/27/2014 by Chelsey Hernandes MD at [facility] SCIENTIFIC / [id number] Alloderm, 8x16 Rtu Thick - [id number] N/A: LIFECE 03/13/2016 [id number] / Implanted: Qty: 1 on 02/10/2015 by Gamaliel Weiss MD at [facility] Abdomen / [id number] Seprafilm - [id number] N/A: Genzyme 01/01/2017 4301-02 / Implanted: Qty: 1 on 02/10/2015 by Gamaliel Weiss MD at [facility] Abdomen / [id number] Seprafilm - [id number] N/A: Genzyme 03/03/2017 4301-02 / Implanted: Qty: 1 on 02/10/2015 by Gamaliel Weiss MD at [facility] Abdomen / [id number] documented as of this encounter Procedures Procedure Name Priority Date/Time Associated Diagnosis Comments DIABETES FOOT EXAM Routine 10/14/2018 documented in this encounter Results DIABETES FOOT EXAM (10/14/2018) FOOT EXAM bilateral feet [facility] POCT numbness Performing Organization Address City/State/Zipcode Phone Number [facility] [address] [place] [id number] documented in this encounter Visit Diagnoses Diagnosis Type 2 diabetes mellitus with complication, without long-term current use of insulin (HCC) - Primary SOB (shortness of breath) Shortness of breath Other iron deficiency anemia Malaise and fatigue Other malaise and fatigue documented in this encounter Insurance Payer Benefit Plan / Subscriber ID Effective Dates Phone Address Type Group MEDICARE MEDICARE PART A xxxxxxxxxxx 2001-Present Medicare & B A[employer] COMMERCIAL AETNA xxxxxxxxxx 2013-Present [employer] (Work) documented as of this encounter Advance Directives Code Status Date Activated Date Inactivated Comments Full Code 07/27/2014 7:33 PM 07/28/2014 3:29 PM Full
--- OUTSIDE RECORDS SUMMARY | 2018-12-03 14:05 | XMS REPORT | Summary of Care ---
:1935 Author Organization [facility] Address [address] [place] [address] Care Team Providers Name Role Phone Tammy Holliday MD Primary Care Provider Jorge Luis Ingram MD Primary Senior C Software Engineer/Field Education Director Reason for Visit Reason Comments Urinary Frequency and burning w/ urination for 3 days Encounter Details Date Type Department Care Team Description 10/07/2018 Office Visit [facility] PA-C (Primary Dx) [address] [place] [address] [place] [address] [phone] Allergies Active Allergy Reactions Severity Noted Date Comments Lansoprazole-Naproxen Other 08/12/2007 Unknown Bee Sting Anaphylaxis High 11/22/2009 Probable yellow jacket documented as of this encounter (statuses as of 10/07/2018) Medications Medication Sig Dispensed Refills Start Date End Date Status ONE TOUCH ULTRA TEST USE DIRECTED 100 Each 5 10/15/2012 Active STRIPS In Vitro Strip TWO TIMES A DAY betaxolol (BETOPIC) Place 1 Drop in 0 Active 0.5 % Ophthalmic both eyes EVERY Solution MORNING. Travoprost (TRAVATAN Place 1 Drop in 0 Active Z) 0.004 % Ophthalmic both eyes EVERY Solution BEDTIME. EPINEPHrine 0.3 0.3 mg by 1 Each 1 07/23/2016 Active MG/0.3ML Injection Injection route Solution Auto-injector NEEDED (bee sting). metoprolol (LOPRESSOR) Take 1 Tab by 180 [...] Chronic diastolic CHF (congestive heart failure) (HCC) ramipril (ALTACE) 10 TAKE 1 CAPSULE BY 90 Cap 3 07/14/2018 Active MG Oral MOUTH DAILY CapIndications: Chronic diastolic congestive heart failure (HCC) Multiple Vitamin Take 1 Tab by [...] type (HCC) 1.25mg remaining days of week sulfamethoxazole-trime Take 1 Tab by 14 Tab 0 10/07/2018 Active thoprim (BACTRIM DS, mouth TWICE DAILY. SEPTRA DS) 800-160 MG Oral Tab documented as of this encounter (statuses as of 10/07/2018) Active Problems Problem Noted Date Chronic diastolic [...] in the uterine fundus. 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 current use of anticoagulant therapy 04/08/2012 Overview: Managed by [facility] referred by Dr Mg Bailon [...] as of this encounter (statuses as of 10/07/2018) Resolved Problems Problem Noted Date Resolved Date Abdominal pain, acute, left lower quadrant 12/30/2014 11/22/2017 Caput medusae 03/17/2014 08/02/2014 documented as of this encounter (statuses as of 10/07/2018) Immunizations Name Administration Dates Next Due Influenza [...] Sign Reading Time Taken Comments Blood Pressure 100/64 10/07/2018 9:26 AM EDT Pulse 103 10/07/2018 9:26 AM EDT Temperature 37 10/07/2018 9:26 AM EDT C (98.6 F) Respiratory Rate - - Oxygen Saturation 97% 10/07/2018 9:26 AM EDT Inhaled Oxygen Concentration - - Weight 50.3 kg (111 lb) 10/07/2018 9:26 AM EDT Height 166.4 cm (5' 5.5") 10/07/2018 9:26 AM EDT Body Mass Index 18.19 10/07/2018 9:26 AM EDT documented in this encounter Patient Instructions Patient InstructionsDoKay campos PA-C - 10/07/2018 9:20 AM EDTEscribed BactrimDS, 1 pill twice daily x 7 days, take with food Push water Rest Will send urine for culture, will call with results Call if not improvingElectronically signed by Kay Hammond PA-C at 2018 9:38 AM EDT documented in this encounter Progress Notes Kay Hammond PA-C - 10/07/2018 9:20 AM EDT PATIENT: Loli Krishnan : 1935 DATE OF SERVICE: 10/07/2018 REFERRING PRACTITIONER: Tammy Holliday PRIMARY CARE PROVIDER: Tammy Holliday CHIEF COMPLAINT: Chief Complaint Patient presents with Urinary Frequency and burning w/ urination for 3 days Subjective HISTORY OF PRESENT ILLNESS: Loli Krishnan is a 83-y.o. female who presents with urinary frequency and burning with urination x 3 days Did urine sample at home this morning -- had sterile cup Denies new soaps, detergents, lotions, baths, swimming Says she gets UTIs twice a year Denies fever, chills, nausea, vomiting, diarrhea, chest pains, SOB Past Medical History: Diagnosis Date Atrial fibrillation (HCC) 04/08/2012 DM (diabetes mellitus) (HCC) eye11 feet -06/16 Eczema 08/12/2007 Endometrial cancer (HCC) GERD (gastroesophageal reflux disease) 08/12/2007 Hyperlipidemia 08/12/2007 Hypertension 08/12/2007 MVP (mitral valve prolapse) 08/12/2007 mild MR Obesity 08/12/2007 Peripheral neuropathy 08/12/2007 Spinal stenosis, lumbar region, without neurogenic claudication L4-L5 Past Surgical History: Procedure Laterality Date POSTOP TOTAL ABDOMINAL HYSTERECTOMY Family History Problem Relation Age of Onset Diabetes Father Hypertension Father Breast Cancer Mother Breast Cancer Daughter Current Outpatient Medications Medication Sig aspirin (ECOTRIN) 81 MG Oral Tab EC Take 81 mg by mouth DAILY NEEDED. atorvastatin (LIPITOR) 10 MG Oral Tab Take 1 Tab by mouth DAILY. betaxolol (BETOPIC) 0.5 % Ophthalmic Solution Place 1 Drop in both eyes EVERY MORNING. EPINEPHrine 0.3 MG/0.3ML Injection Solution Auto-injector 0.3 mg by Injection route NEEDED(bee sting). glipiZIDE (GLUCOTROL) 5 MG Oral Tab Take 0.5 Tabs by mouth DAILY. metoprolol (LOPRESSOR) 50 MG Oral Tab Take 1 Tab by mouth TWICE DAILY. Multiple Vitamin (DAILY VITAMIN) Oral Tab Take 1 Tab by mouth DAILY. Indications: vit k 25mcg/tab ONE TOUCH ULTRA TEST STRIPS In Vitro Strip USE DIRECTED TWO TIMES A DAY ramipril (ALTACE) 10 MG Oral Cap TAKE 1 CAPSULE BY MOUTH DAILY torsemide (DEMADEX) 10 MG Oral Tab Take 1 Tab by mouth DAILY. Travoprost (TRAVATAN Z) 0.004 % Ophthalmic Solution Place 1 Drop in both eyes EVERY BEDTIME. warfarin (COUMADIN) 2.5 MG Oral Tab Take 1 Tab by mouth DAILY. As directed which is 2.5mg Sun/Tue/Mary. 1.25mg remaining days of week warfarin (COUMADIN) 5 MG Oral Tab Take 0.5 Tabs by mouth DAILY. Not currently in use No current facility-administered medications for this visit. Allergies Allergen Reactions Sting [Bee Sting] Anaphylaxis Probable yellow jacket Prevacid Naprapac [Lansoprazole-Naproxen] Other Unknown Social History Socioeconomic History Marital status: Spouse [...] file Gets together: Not on file Attends mosque service: Not on file Active member of [...] Social History Narrative Cat in home. 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 ,2 daughters REVIEW OF SYSTEMS: Skin: negative skin lesions Eyes: negative visual blurring Ears/Nose/Throat: negative rhinorrhea or sore throat Respiratory: negative cough Cardiovascular: negative chest pain. Positive AFib Gastrointestinal: negative abdominal pain, constipation, diarrhea, nausea or vomiting Genitourinary: positive burning on urination, dysuria, urinary frequency Musculoskeletal: positive arthritis/joint pain Neurologic: positive peripheral neuropathy Psychiatric: negative anxiety Hematologic/Lymphatic/Immunologic: negative allergies Endocrine: positive diabetes II Objective PHYSICAL EXAMINATION: VITALS: BP 100/64 (BP Location: Right arm, Patient Position: Sitting) | Pulse 103 | Temp 98.6 F (37 C) | Ht 5' 5.5" (1.664 m) | Wt 111 lb (50.3 kg ) | SpO2 97% | BMI 18.19 kg/m Body mass index is 18.19 kg/m. General appearance: alert, mild distress, cooperative, oriented times 3 Skin: Skin color, texture, turgor normal. No rashes or lesions. Head: Normocephalic. No masses, lesions, tenderness or abnormalities Eyes: conjunctivae/corneas clear. PERRL, EOM's intact. Neck: Neck supple, FROM. No cervical or supraclavicular adenopathy. Lungs: Good diaphragmatic excursion. Lungs clear. Chest symmetrical. Normal breath sounds. Heart: Irregular, irregular. 3/6 systolic murmur present. No clicks or gallops. Abdomen: Abdomen soft. Mild tenderness over bladder. BS normal. No masses, organomegaly or hernia. . IMPRESSION: ICD-9-CM ICD-10-CM 1. Urinary frequency 788.41 R35.0 Plan PLAN: Escribed BactrimDS, 1 pill twice daily x 7 days, take with food Push water Rest Will send urine for culture, will call with results Call if not improving Author: Kay Hammond PA-C 10/07/2018 09:16 documented in this encounter Plan of Treatment Date Type Specialty Care Team Description 10/14/2018 AntiCoag Anticoagulation 10/14/2018 Office [place] [address] [place] [id number] 03/18/2019 Orders Only Cardiology 03/26/2019 Office Visit Cardiology Alex Higgins MD [facility] [place] [address] Health Maintenance Due Date Last Done Comments HIV SCREENING 1950 ZOSTER IMMUNIZATION SERIES 02/11/2017 12/17/2016 (2 of 3) MEDICARE ANNUAL WELLNESS 12/03/2017 12/03/2016, 04/08/2012 VISIT FOOT EXAM 07/31/2018 07/31/2017, 07/31/2017 HEMOGLOBIN A1C 10/21/2018 04/23/2018, 07/24/2017, 03/18/2017, Additional history exists INFLUENZA VACCINE (#1) 2018 11/08/2017, 12/03/2016, 12/14/2015, Additional history exists DEPRESSION SCREENING 08/14/2019 08/13/2018 FALL RISK ASSESSMENT 08/14/2019 08/13/2018, 08/13/2018 Diabetic Eye Exam 04/24/2020 04/24/2018, 04/24/2018, 10/21/2017, [...] Problems Progress Blood Pressure Blood Pressure Hypertension 100/64 No Mg, < 140/90 (10/07/2018 Tammy, 9:26 AM EDTJacob HODGE Note: Hypertension Care Plan Based on the [...] Educational Resources: National Heart, Lung, & Blood [place] http://nhlbi.nih.gov/hbp/index.html The DASH Diet Eating Plan http://www.nhlbi.nih.gov/health/health-topics/ topics/dash/ Academy of Nutrition & DIetetics http://eatright.org National Smoking Cessation Site http://smokefree.gov Blood Pressure < Blood Pressure 100/64 (10/07/2018 No Kay Hammond PA -C 140/90 9:26 AM EDT) Note: This is an individualized treatment (blood pressure) goal for Loli Krishnan: Displayed above (on the left) is your goal for blood pressure control. Your most recent blood pressure is also shown above, on the right. You should try to achieve blood pressures that are lower than your goal listed above (on the left). Weight increase vs. 18 CHF 1 (10/07/2018 9:26 AM EDT) Tammy Kim MD mo min (lbs) < 5 Note: [...] 7.0 Diabetes DM (diabetes 5.5 (07/24/2017 No Mg, mellitus) 9:19 AM EDT) MD Tammy Note: [...] my blood sugar results (including dextrose sticks). Descomplicarie is safe and secure way for you [...] and any After Visit Summaries. Consume a [id number] diet Lifestyle No Tammy Holliday MD Note: [...] of this encounter Implants Implanted Type Area Card Cutter Helper Device Shelf Model / Identifier Expiration Serial / Date Lot [employer] - [id number] N/A: Uterus BOSTON [id number] / Implanted: Qty: 1 on 07/27/2014 by Chelsey Hernandes MD at [facility] SCIENTIFIC / [id number] Alloderm, 8x16 Rtu Thick - [id number] N/A: LIFECE 03/13/2016 [id number] / Implanted: Qty: 1 on 02/10/2015 by Gamaliel Weiss MD at [facility] Abdomen / [id number] Seprafilm - [id number] N/A: Genzyme 01/01/2017 [id number] / Implanted: Qty: 1 on 02/10/2015 by Gamaliel Weiss MD at [facility] Abdomen / [id number] Seprafilm - [id number] N/A: Genzyme 03/03/2017 [id number] / Implanted: Qty: 1 on 02/10/2015 by Gamaliel Weiss MD at [facility] Abdomen / [id number] documented as of this encounter Results Not on filedocumented in this encounter Visit Diagnoses Diagnosis Urinary frequency - Primary documented in this encounter Insurance Payer Benefit Plan / Subscriber ID Effective Dates Phone Address Type Group MEDICARE MEDICARE PART A xxxxxxxxxxx 2001-Present Medicare & B AETNA COMMERCIAL AETNA xxxxxxxxxx 2013-Present Aetna (Work) documented as of this encounter Advance Directives Code Status Date Activated Date Inactivated Comments Full Code 07/27/2014 7:33 PM 07/28/2014 3:29 PM Full
[2018-12-03 14:34] LABS: Activated Partial Thrombo Time 44.3 seconds (26.0-38.0)
[2018-12-03 14:39] LABS: ABS Lymphocytes 0.2 10^3/ul (1.0-4.8); ABS Monocytes 0.3 10^3/ul (0-0.8); ABS Neutrophils 4.7 10^3/ul (1.5-7.7); ABS Nucleated RBC 0.2 10^3/ul; Eosinophil % 0.6 %; Hematocrit 36 % (35-47); Hemoglobin 11.5 g/dL (12.0-16.0); Lymphocyte % 4.6 %; Mean Corpuscular HGB Conc 32 g/dL (31-36); Mean Corpuscular Hemoglobin 37 pg (27-31); Mean Corpuscular Volume 115 fL (80-97); Mean Platelet Volume 8.4 fL (7.4-10.4); Nucleated Red Blood Cells % 2.7; Platelet Count 295 10^3/uL (150-450); Red Blood Count 3.09 10^6 /uL (3.70-4.87); Red Cell Distribution Width 21 % (10-15); White Blood Count 5.4 10^3/uL (3.5-10.8)
[2018-12-03 14:41] LABS: Albumin 2.8 g/dL (3.2-5.2); Albumin/Globulin Ratio 0.8 (1-3); BUN/Creatinine Ratio 59.7 (8-20); C Reactive Protein 54.47 mg/L (<8.01); Calcium 8.7 mg/dL (8.6-10.3); EGFR African American 52.5 (>60); EGFR Non-African American 43.4 (>60); Globulin 3.7 g/dL (2-4); Magnesium 2.5 mg/dL (1.9-2.7); Potassium 4.2 mmol/L (3.5-5.0); Total Bilirubin 1.1 mg/dL (0.2-1.0); Total Protein 6.5 g/dL (6.4-8.9)
[2018-12-03 14:42] LABS: Troponin I 0.03 ng/mL (<0.04)
[2018-12-03 14:54] LABS: TSH (Thyroid Stimulating Horm) 11.96 mcIU/mL (0.34-5.60)
[2018-12-03 15:05] LABS: INR 6.2 (0.82-1.09)
[2018-12-03 15:50] LABS: Urine Appearance Cloudy; Urine Bacteria Absent (Absent); Urine Bilirubin Negative (Negative); Urine Blood Negative (Negative); Urine Color Yellow; Urine Glucose Negative (Negative); Urine Ketones Negative (Negative); Urine Nitrite Negative (Negative); Urine Protein 1+(30 mg/dL) (Negative); Urine Red Blood Cell Trace(0-2/hpf) (Absent); Urine Specific Gravity 1.021 (1.010-1.030); Urine Squamous Epithelial Cell Present (Absent); Urine Urobilinogen Negative (Negative); Urine White Blood Cell 2+(11-20/hpf) (Absent)
[2018-12-03] MEDS ORDERED: Albuterol/Ipratropium NEB.SOL* Albuterol 2.5 MG/Ipratropium 0.5 MG 3 ML INH PRN (16:15)
[2018-12-03] MEDS ORDERED: Acetaminophen TAB* 325 MG PO PRN ×2 (16:15→17:00)
[2018-12-03] MEDS ORDERED: Metoprolol Tartrate IV* 1 MG/ML 5 ML VIAL IV PRN (16:17)
[2018-12-03] MEDS ORDERED: Al Hydrox/Mg Hydrox/Simet LIQ* 30 ML UDC PO PRN (17:00)
[2018-12-03] MEDS ORDERED: NS 0.9% 1000 ML** 1,000 ML IV SCH (17:30)
--- NOTE | 2018-12-03 19:22 | CONS ---
CC: Misty Walsh; Misty Levine; Hospitalist * CONSULTATION REPORT: DATE OF CONSULT: 12/03/18 REASON FOR CONSULT: AFib, rapid ventricular rate, and concern for congestive heart failure. HISTORY OF PRESENT ILLNESS: Ms. Krishnan is an 83-year-old woman with chronic persistent atrial fibrillation with a rapid ventricular rate. She was admitted on 11/13/[address] Higgins's office for AFib and rapid ventricular rate and shortness of breath and CT angiogram at that time revealed pulmonary embolus. She had been on Coumadin at supratherapeutic levels and was converted to Eliquis. As per Dr. Higgins's notes, at that time, her INRs had wide swings of variation and had been below 2 relatively recently. The patient also had an echo, which showed her ejection fraction had decreased from her previous 55% to 35%-40%. She had [id number] aortic stenosis. As the patient had chronic AFib, she was treated with anticoagulants and rate control initially with diltiazem drip, but discharged on oral beta-blockers. The patient was discharged to [facility] to undergo rehab, but was felt to be too weak and unstable and was predominantly in a wheelchair bed. The patient was sent here as she was unable to eat. It sounds like she was winded, although I did not get a great history from the patient or daughter about shortness of breath. History also revealed she did not move much. The patient states her chief complaint is she cannot swallow. Her daughter concurs with this. Her daughter says that for about a year she has had progressive dysphagia. She has never had a referral to GI or a swallowing study. The patient reports that currently if she swallows it gets stuck usp down her throat. If she coughs, it will go down further, but the process of swallowing makes her feel like she needs to cough and makes her anxious because she is worried it would not go down, she might choke, it is scary. I did not ellicit a history that after swallowing her stomach feels poorly. She denied nausea, fullness, abdominal pain. To the hospitalist, she reported early satiety. PAST MEDICAL HISTORY: The patient has a past medical history of: 1. Chronic AFib, on anticoagulation (recently Coumadin, converted to Eliquis) and rate control. 2. Aortic stenosis, [id number]-[id number]-eknpoj, November 2018. 3. Mitral valve prolapse. 4. Pulmonary embolus in November 2018, on anticoagulation. 5. Endometrial cancer, status post hysterectomy in 2015, BSO and sacrocervicopexy and radiation therapy with abdominal debulking ([facility]). Chemo included carboplatin and Taxol and per Dr. Mcgrath, this is metastatic disease BUT CURRENT UPDATE WITH DR CERRATO STATES NO ACTIVE CANCER. 6. Hypertension. 7. Type 2 diabetes, resolved with weight loss. 8. Pulmonary fibrosis versus COPD per Dr. Mcgrath's notes. 9. Spinal stenosis. 10. Dyslipidemia. MEDICATIONS: Current medications based on [facility] notes include: 1. Metoprolol 75 mg b.i.d. 2. Eliquis 5 mg b.i.d. 3. Travoprost ophthalmic drops. 4. Tylenol p.r.n. 5. Tramadol 25 mg q.6 hours p.r.n. 6. Demadex 10 mg every other day alternating with spironolactone 25 mg every other day. 7. Remeron 15 mg q.h.s. 8. PEG p.r.n. 9. MultiVites 1 tab p.o. q. day. 10. Levothyroxine 25 mcg a day. 11. Ipratropium/albuterol inhaler. 12. Betaxolol ophthalmic drops. 13. Lipitor 10 mg a day. 14. Aspirin 81 mg a day. ALLERGIES: Include BEE STINGS. FAMILY HISTORY: Significant that her father at age 60, but etiology unknown. Brother with kidney cancer. Mother of an accident at age 82. No identified cardiac history. SOCIAL HISTORY: The patient never smoked, lived independently, is . She has a daughter who is present, who is supportive. REVIEW OF SYSTEMS: The patient denies headaches. Dysphagia noted as above, just has not been able to eat, see history of present illness. She denies orthopnea. Admits to shortness of breath with even light exertion. No chest pain. Recent constipation, responded to senna and p.r.n. meds. Denies hematuria or dysuria. Denies lower extremity edema. Denies fevers, chills, productive cough, and all other 14-point review of systems was negative. PHYSICAL EXAM: The patient has not yet been weighed. She appears extremely cachectic, malnourished, and chronically ill. Currently, blood pressure 113/72 , she is in AFib with a rate of 118 beats per minute, respiratory rate 26 to 35 , oxygen saturation on room air is 98%. HEENT: Only a few teeth left and mucosa is markedly dry, no moisture at all. Breath sounds distant, but no wheezes, rales, or rhonchi heard. Neck: Increased JVP noted lying flat with a pillow. Coronary: S1, S2, irregularly irregular. I did not appreciate murmurs. Abdomen: Cachectic, flat. I did not appreciate hepatosplenomegaly. Lower extremities were free of edema. Musculature, cachectic again. DIAGNOSTIC STUDIES/LAB DATA: White count 5.4, hemoglobin 11.5, hematocrit 36, mean cell volume elevated at 115, platelets 295. B12 from November, folate greater than 20. Sodium 139, potassium 4.2, chloride 106, bicarb 24, BUN 71, creatinine 1.19 (baseline in November, BUN 29, creatinine 0.74), glucose 142, lactic acid 1.9, calcium 8.7, magnesium 2.5. Total bili 1.1, AST 28, ALT 16. Troponin 0.03, C- reactive protein 55, BNP greater than 1300. TSH 11.96. Urinalysis positive for protein, leukocyte esterase, white cells. No recent microbiology studies in our system. INR 6.2, PTT 44. Chest x-ray reviewed personally, consistent with significant congestive heart failure, quite fluffy. Compared with her chest x-ray on 11/13/18, there has been a significant increase in the amount of congestive heart failure. The Radiology report today states cardiomegaly, diffuse interstitial opacification that has progressed suggestive of acute on chronic interstitial lung disease including pulmonary edema superimposed on pulmonary fibrosis. CT scan 11/13/18: Pulmonary embolisism suggestive of subacute or chronic clot, cardiomegaly, ground-glass opacities consistent with pulmonary edema due to congestive heart failure, but could not exclude superimposed infection. Echocardiogram from 11/14/18 shows an ejection fraction 35% to 40% with right ventricular systolic function moderate to severely reduced. She has moderate-to - severe aortic stenosis, mean gradient 9 mmHg, aortic valve area 0.5 to 0.6 cm2 , moderate tricuspid insufficiency, left pleural effusion, and PA pressure estimated at 41 mmHg. ECHO [facility] 08/20/18: EF 55%, moderate : mean gradient 15 mmHG, DI 0.35, MARGE 0.9 cm2. IMPRESSION AND PLAN: In summary, Loli Krishnan is an 83-year-old woman presenting with failure to thrive with marked dysphagia, cachexia and evidence of dehydration on clinical exam with marked elevation BUN and creatinine, normal LFT's. Markedly abnormal CXR which includes the differential of CHF. For the patient's acute renal insufficiency, I agree with discontinuation of diuretics. I would stop ASA. Additionally, I think it is extremely important we get a swallowing study in her and anything else that would help determine what her progressive dysphagia over the last year has been. I asked her to think about whether she wants a feeding tube or not for nutritional support, which she and her daughter are going to think about. For the patient's atrial fibrillation, this is chronic, rate control is pretty good, improved from her most recent admission and I don't think is the cause of her presentation. I recommend we continue with rate control and anticoagulation. Regarding the anticoagulation with her INR at 6 and her acute renal insufficiency, I think this is a difficult issue and Heme/Onc may be able to help. On the one hand it makes sense to hold the Eliquis for now, follow the INR. However, with her recent pulmonary embolus on coumodin, this may not be optimal correction. Assistance on etiology of elevated INR off coumodin would be helpful too. The patient's aortic stenosis could be behind or at least contributing to the patient's cachexia and cardiac status. It is possible her recent echos at [facility] [place] [facility] [place] underestimated her . The low gradient seen on her last echo could be due to the depressed ejection fraction and she could very well in fact have low-gradient severe aortic stenosis. When I saw her last month, I had felt that her overall medical status made her a poor candidate for TAVR, but we could reconsider this if her other medical issues stabilize and improve and especially if it is felt that a lot of her acute destabilization is related to the valve. I have ordered a repeat echo to look at valve and ventricular function. For the patient's cardiomyopathy, she is no longer a candidate for Aldactone and even with her pulmonary edema, I do not feel she is a candidate for torsemide right now. Her metoprolol will help with her cardiomyopathy in addition to rate control. For her pulmonary edema and abnormal chest x-ray, this could all be pulmonary with her history of pulmonary fibrosis and I would consider consulting pulmonary for their input, getting any old pulmonary records if they exist, but it could all be cardiac from the aortic stenosis or could be a combination. As Dr Baldwin discussed, a [place]/right heart cath might be helpful in this case. For the patient's renal insufficiency, I think it is dehydration from diuretics and dysphagia. I recommend gentle IV fluids and consideration of an NG tube if appropriate after swallowing eval. If this presentation is really due to critical aortic stenosis, then her option would be an acute TAVR if from her other medical issues she is felt to be a candidate. A LEEANN could be extremely beneficial for further determination of her aortic valve, but I think LEEANN and anesthesia is risky now. With the patient's history of cancer and reports of Dr. Mcgrath that is it metastatic, I think we need to work with her primary care and oncologist to ensure we have an accurate past medical history and know her oncological prognosis and we should get if able any records from the lead solutions architect at [facility] with her past medical history of pulmonary fibrosis listed in the old charts as well. Thank you for allowing me to assist in this very pleasant but extremely complex woman's care. [id number]/[facility] #: [id number] KATE
--- NOTE | 2018-12-03 19:30 | HP ---
CC: Dr. Holliday * HISTORY AND PHYSICAL: DATE OF ADMISSION: 12/03/18 TIME OF ADMISSION: 5 p.m. CHIEF COMPLAINT: "I can't eat." HISTORY OF PRESENT ILLNESS: This is an 83-year-old female with history of recent PE, AFib, chronic end diastolic heart failure with severe valvular disease, and endometrial cancer who presents to the emergency department from [place] with failure to thrive for the last 2 weeks. Her daughters brought her here today. The patient says that she has been feeling poor appetite, difficulty swallowing, shortness of breath, weakness, and fatigue for the past few weeks. She was discharged to [place] from [facility] 2 weeks ago for physical therapy, though her daughters note that she has been more weak and more short of breath and losing weight for about a year. They are not sure how much weight she has lost. Loli denies any pain when she swallows. She has difficulty distinguishing why she has not been eating and says that food gets stuck in her mouth and sometimes feels like it get stuck in her esophagus. She also complains of early satiety and poor appetite. She says that one of the main reason she does not eat is because she cannot taste anything. There is nothing that tastes good to her. She denies odynophagia or abdominal bloating. Regarding her weakness, she had been doing physical therapy when she first got to [place], but over the past week she has been unable to participate in physical therapy. [facility] discussed withdrawing PT services with her daughter and it was at that point that they decided to bring her to the emergency department. She was recently admitted to our service for AFib with RVR. She was found to have a PE at that time and was switched from warfarin to Eliquis due to difficult to control INRs while she had been on Coumadin for her AFib. PAST MEDICAL HISTORY: PE, endometrial cancer, questionable COPD, AFib, systolic heart failure, aortic stenosis, mitral regurgitation. HOME MEDICATIONS: 1. Eliquis 5 mg b.i.d. 2. Aspirin 81 mg daily. 3. Tylenol 325 mg q.4 p.r.n. pain. 4. Atorvastatin 10 mg daily. 5. DuoNeb 3 mL q.4 p.r.n. shortness of breath. 6. Synthroid 25 mcg daily. 7. Metoprolol 75 mg b.i.d. 8. Mirtazapine 15 mg at bedtime. 9. Multivitamin daily. 10. MiraLAX 17 g daily. 11. Spironolactone 25 mg every other day. 12. Torsemide 10 mg every other day. 13. Tramadol 25 mg q.6 p.r.n. pain. SOCIAL HISTORY: She had been living alone prior to her admission to [place]. 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 Her healthcare proxy is her daughter, Rosalina Solis, her phone number is [phone]. REVIEW OF SYSTEMS: Positive for constipation, shortness of breath. She denies nausea, chest pain, palpitations, fevers, cough. PHYSICAL EXAMINATION GENERAL: Alert, frail, ill-appearing elderly female, in no distress, lying in the stretcher at approximately 20 degrees. VITAL SIGNS: Temperature 97.1, heart rate 118, respiratory rate 26, pulse ox 100% on 4 L, blood pressure 113/73. HEENT: Pupils are 4 mm bilaterally and reactive to light. Oral mucosa is extremely dry. She has 1 remaining tooth and her pharynx is unremarkable. NECK: Her external jugular veins are distended, but it is difficult to see her internal jugular veins. CHEST: She is tachycardic, in irregularly irregular rhythm with systolic murmur throughout. Her lungs have dry crackles. ABDOMEN: Scaphoid, soft, nontender with no CVA tenderness. EXTREMITIES: She has no edema, rashes, or ulcers. SKIN: She has 5 cm ecchymosis on her left chest wall. DIAGNOSTIC STUDIES/LAB DATA: White blood cells 5.4, hemoglobin 11.5, platelets 295. INR 6.2. Sodium 139, potassium 4.2, bicarb 24, BUN 71, creatinine 1.1, glucose 142, lactic acid 1.9. Total bilirubin 1.1. C-reactive protein 54. ALT 16, AST 28. BNP over 1300. Albumin 2.8. TSH 11.96. Imaging: EKG shows AFib with a normal axis, normal QRS and QTc, the rate is 119. No ST or T-wave changes. Chest x-ray shows cardiomegaly, diffuse pattern of interstitial opacification has progressed from the 09/12/19 exam. This is suggestive of [id number] interstitial lung disease including pulmonary edema superimposed on pulmonary fibrosis. ASSESSMENT AND PLAN: This is an 82-year-old female with history of treated endometrial cancer, atrial fibrillation with rapid ventricular response, systolic heart failure, mitral regurgitation, aortic stenosis, an unknown underlying pulmonary process, a recent pulmonary embolism who presents to the emergency department with several weeks to months of worsening weakness, shortness of breath, and inability to tolerate a diet. 1. Dysphagia/cachexia. I will start with a swallow eval tomorrow and she ultimately may need a GI evaluation for upper endoscopy. We do not have an accurate weight on her, so I will order daily weights and a prealbumin for tomorrow. The differential for her cachexia also includes cardiac or pulmonary in addition to a functional dysphagia. The description of her inability to eat is challenging, as she describes dysphagia with solids/liquids, plus early satiety, but we will start with a swallow eval and proceed depending on what that shows. I am also concerned that she may be in severe RV failure, thus causing her early satiety. I have talked with Dr. Lowe about my concerns for RV failure and even nearing shock, and she came to evaluate Ms. Krishnan immediately. Ultimately, she felt that her current presentation is more of a failure to thrive picture. 2. Acute renal failure. She has received a liter of IV fluids in the emergency department. I am giving her very gentle IV fluids with hesitation given her severe valvular disease. She will need to be monitored closely for pulmonary edema. Alternatively, her acute renal failure may be related to worsening aortic stenosis or mitral regurgitation and this all may be a cardiac etiology. However, I consulted with Dr. Lowe, who recommends a trial of gentle IV fluids and thinks this is less likely to be primary cardiac. 3. Acute hypoxic respiratory failure. She has evidence of pulmonary edema. 4. Atrial fibrillation with rapid ventricular response. We will keep her on metoprolol dose as is and see if gentle volume repletion improves her atrial fibrillation. 5. Chronic systolic and diastolic heart failure with severe aortic stenosis and mitral regurgitation. Dr. Lowe is ordering a repeat transthoracic echocardiogram tomorrow and we consider a LEEANN to further evaluate the worsening valvular disease. 6. Recent pulmonary embolism with supratherapeutic INR. I suspect her INR of 6 is related to her poor oral intake and vitamin K deficiency. I am holding her apixaban and her aspirin. She has no evidence of bleeding at this time, so does not need reversal. We will need to monitor her INR closely. 7. History of endometrial cancer. I have spoken with Dr. Hillman about her case , and as far as he last knows, she has no active cancer at this time. 8. Macrocytic anemia. She had a B12 drawn yesterday which was within normal limits as well as a folate. 9. Disposition: Admit to telemetry with Cardiology consult. She may also need pulmonary and GI consults. I have reviewed her MOLST with her and her daughter. She wishes to be DNR/DNI. [id number]/CPS #: [id number] KATE
[2018-12-03] MEDS ORDERED: Senna TAB 8.6 mg* TAB PO PRN (20:01)
[2018-12-03] MEDS: Mirtazapine TAB* 15 MG PO SCH (21:17)
[2018-12-03] MEDS: Metoprolol Tartrate TAB* 50 mg PO SCH (21:17)
[2018-12-03] MEDS: Travoprost Z 0.004% OPHTH (NF) 2.5 ML BTL BOTH EYES SCH (21:20)
[2018-12-04] MEDS: traMADol TAB* 50 MG PO PRN ×2 (03:18→15:24)
[2018-12-04 05:26] LABS: ABS Eosinophils 0.1 10^3/ul (0-0.6); ABS Lymphocytes 0.2 10^3/ul (1.0-4.8); ABS Monocytes 0.4 10^3/ul (0-0.8); ABS Neutrophils 5.9 10^3/ul (1.5-7.7); ABS Nucleated RBC 0.1 10^3/ul; Eosinophil % 1.8 %; Hematocrit 37 % (35-47); Hemoglobin 11.8 g/dL (12.0-16.0); Lymphocyte % 3.5 %; Mean Corpuscular HGB Conc 32 g/dL (31-36); Mean Corpuscular Hemoglobin 37 pg (27-31); Mean Corpuscular Volume 114 fL (80-97); Mean Platelet Volume 8.7 fL (7.4-10.4); Nucleated Red Blood Cells % 1.7; Platelet Count 311 10^3/uL (150-450); Red Blood Count 3.21 10^6 /uL (3.70-4.87); Red Cell Distribution Width 20 % (10-15); White Blood Count 6.6 10^3/uL (3.5-10.8)
[2018-12-04 05:37] LABS: BUN/Creatinine Ratio 52.9 (8-20); Calcium 8.6 mg/dL (8.6-10.3); EGFR African American 52.5 (>60); EGFR Non-African American 43.4 (>60); Potassium 4.9 mmol/L (3.5-5.0)
[2018-12-04] MEDS: Levothyroxine TAB* 25 MCG TAB PO SCH (05:42)
[2018-12-04 05:50] LABS: INR 5.27 (0.82-1.09)
[2018-12-04] MEDS ORDERED: Mineral Oil, LAXITIVE* 30 ML UDC PO ONE (06:00)
[2018-12-04] MEDS ORDERED: Glycerin ADULT SUPP PR ONE (06:00)
[2018-12-04] MEDS ORDERED: Phytonadione IV (Adult)* 10 MG/ML 1 ML AMP IV ONE (07:50)
[2018-12-04] MEDS ORDERED: Phytonadione Oral Solution* 5 MG/25 ML UDC PO ONE (08:32)
[2018-12-04] MEDS: Polyethylene Glycol 3350* 17 GM PACKET PO SCH (08:59)
[2018-12-04] MEDS: Atorvastatin* 10 MG TAB PO SCH (09:01)
[2018-12-04] MEDS: Metoprolol Tartrate TAB* 50 mg PO SCH ×2 (09:02→21:38)
[2018-12-04] MEDS: Multivitamins/Minerals TAB PO SCH (09:02)
[2018-12-04] MEDS: Lidocaine 2% JELLY* 6 ML JELLY TOPICAL PRN ×2 (09:03→13:45)
[2018-12-04] MEDS: Betaxolol 0.5 %* OPHTH.SOLN 5 ML BOTH EYES SCH (09:15)
[2018-12-04 12:56] LABS: INR 6.53 (0.82-1.09)
--- NOTE | 2018-12-04 13:52 | PN ---
Subjective Date of Service: 12/04/18 Interval History: Patient today complaining of severe anal pain at 7/10, worse after overnight attempt at disimpaction. Patient is feeling somewhat SOB but hasn't been moving around much. Patient has no appetite, is bothered by her very few teeth and complains of persistent feeling of food getting stuck in her throat. Patient denies CP, SOB, dizziness, palpitations, or other pain. Family History: Unchanged from Admission Social History: Unchanged from Admission Past Medical History: Unchanged from Admission Objective Active Medications: Acetaminophen (Tylenol Tab*) 325 mg PO Q4H PRN PRN Reason: PAIN - MILD Acetaminophen (Tylenol Tab*) 650 mg PO Q4H PRN PRN Reason: PAIN - MODERATE Al Hydrox/Mg Hydrox/Simethicone (Maalox Plus*) 30 ml PO Q6H PRN PRN Reason: INDIGESTION Last Admin: 12/03/18 21:17 Dose: 30 ml Albuterol/Ipratropium (Duoneb (Albuterol 2.5 Mg/Ipratropium 0.5 Mg)) 1 neb INH Q4H PRN PRN Reason: SOB/WHEEZING Atorvastatin Calcium (Lipitor*) 10 mg PO QAM [facility] Last Admin: 12/04/18 09:01 Dose: 10 mg Betaxolol HCl (Betoptic 0.05%*) 1 drop BOTH EYES QAM [facility] Last Admin: 12/04/18 09:15 Dose: 1 drop Sodium Chloride (Ns 0.9% 1000 Ml) 1,000 mls @ 75 mls/hr IV PER RATE [facility] Last Admin: 12/04/18 05:41 Dose: 75 mls/hr Levothyroxine Sodium (Synthroid Tab*) 50 mcg PO DAILY@0600 [facility] Last Admin: 12/04/18 05:42 Dose: 50 mcg Lidocaine HCl (Lidocaine 2% Jelly*) 1 applic TOPICAL TID PRN PRN Reason: Anal Pain Last Admin: 12/04/18 13:45 Dose: 1 applic Metoprolol Tartrate (Lopressor Tab*) 75 mg PO BID [facility] Last Admin: 12/04/18 09:02 Dose: 75 mg Mirtazapine (Remeron Tab*) 15 mg PO BEDTIME [facility] Last Admin: 12/03/18 21:17 Dose: 15 mg Multivitamins/Minerals (Theragran/Minerals Tab*) 1 tab PO DAILY [facility] Last Admin: 12/04/18 09:02 Dose: 1 tab Polyethylene Glycol/Electrolytes (Miralax*) 17 gm PO DAILY [facility] Last Admin: 12/04/18 08:59 Dose: 17 gm Senna (Senokot 8.6 Mg Tab*) 1 tab PO BEDTIME PRN PRN Reason: CONSTIPATION Last Admin: 12/03/18 21:17 Dose: 1 tab Tramadol HCl (Ultram*) 25 mg PO Q6HR PRN PRN Reason: PAIN - MODERATE Last Admin: 12/04/18 03:18 Dose: 25 mg Travoprost (Travatan Z 0.004% Opth (Nf)) 1 drop BOTH EYES BEDTIME [facility]; Protocol Last Admin: 12/03/18 21:20 Dose: Not Given Vital Signs - 8 hr 12/04/18 12/04/18 12/04/18 07:30 07:45 08:00 Temperature 97 F Pulse Rate 105 Respiratory 36 24 16 Rate Blood Pressure 92/52 (mmHg) O2 Sat by Pulse 100 Oximetry 12/04/18 12/04/18 08:46 11:15 Temperature 97.7 F 97.9 F Pulse Rate 126 116 Respiratory 22 24 Rate Blood Pressure 108/76 104/59 (mmHg) O2 Sat by Pulse 100 95 Oximetry Oxygen Devices in Use Now: Nasal Cannula Appearance: Patient is an 83yo female who appears older than stated age, is emaciated, and is sitting in the bed with moderately increased work of breathing. Eyes: No Scleral Icterus, PERRLA Ears/Nose/Mouth/Throat: NL Teeth, Lips, Gums, Clear Oropharnyx, Mucous Membranes Moist, - - Temporal Muscle wasting. Neck: NL Appearance and Movements; NL JVP, Trachea Midline Respiratory: Symmetrical Chest Expansion and Respiratory Effort, - - Diminished in bases, no other adventitious lung sounds. Cardiovascular: NL Sounds; No Murmurs; No JVD, No Edema, - - Tachycardia, irregularly irregular rhythm. Abdominal: - - Tender to palpation throughout, anal bleeding from small skin tag at 12 o'clock. Lymphatic: No Cervical Adenopathy Extremities: No Clubbing, Cyanosis Skin: No Nodules or Sclerosis Neurological: Alert and Oriented x 3, NL Sensation, NL Muscle Strength and Tone , - - CN II-XII intact. Result Diagrams: 12/04/18 05:08 12/04/18 05:08 Microbiology and Other Data: Microbiology 12/03/18 18:04 Nasal Screen MRSA (PCR) - Final Nasal Mrsa Not Detected Assess/Plan/Problems-Billing Assessment: Patient is an 83yo female with a PMH for endometrial cancer S/P resection, Chemotherapy, and radiation, , Afib, HFrEF, Pulmonary fibrosis, here with decreased oral intake, weight loss and worsening hypoxia of unclear etiology. - Patient Problems (1) Heart failure with reduced ejection fraction Current Visit: No Status: Acute Code(s): I50.20 - UNSPECIFIED SYSTOLIC ( CONGESTIVE) HEART FAILURE SNOMED Code(s): 697690448 Comment: - EF at 35%, most likely tachy medicated from prolonged time spent in RVR - Repeat Echo - Appears dry on admission, continue gentle fluids - Hold Diuretics at this time - Moderate-Severe , possibly underestimated on previous ECHO, possible alternative cause of reduced EF - Family and patient not sure about TAVR at this time - Strict I/O and Daily Weight. (2) Elevated INR Current Visit: Yes Status: Acute Code(s): R79.1 - ABNORMAL COAGULATION PROFILE SNOMED Code(s): 946939145 Comment: - ? Related to Eliquis accumulation - Did not improve to Vitamin K dosing. Recheck Daily - No significant bleeding at this time requiring more intensive reversal. (3) ADRIEN (acute kidney injury) Current Visit: Yes Status: Acute Code(s): N17.9 - ACUTE KIDNEY FAILURE, UNSPECIFIED SNOMED Code(s): 94350915 Comment: - Trend Cret with rehydration - Unchanged overnight. (4) Pulmonary embolism on long-term anticoagulation therapy Current Visit: No Status: Acute Code(s): I26.99 - OTHER PULMONARY EMBOLISM WITHOUT ACUTE COR PULMONALE; Z79.01 - SNF (CURRENT) USE OF ANTICOAGULANTS SNOMED Code(s): 480906313 Comment: - Acute on chronic PE even after being on warfarin. - Started on Apixaban Last Month, Severely Elevate INR - Consult to Heme/Onc who will consult and advise on INR and Possible evaluation for Recurrent Endometrial Cancer (5) Protein calorie malnutrition Current Visit: Yes Status: Acute Code(s): E46 - UNSPECIFIED PROTEIN-CALORIE MALNUTRITION SNOMED Code(s): 944767183 Comment: - Severe muscle wasting. Very poor oral intake. - 6kg weight loss in less than a month - Subjective dysphagia, [facility] consult pending - Possible Cachexia from HF vs other inflammatory process. (6) Anemia, macrocytic Current Visit: No Status: Acute Code(s): D53.9 - NUTRITIONAL ANEMIA, UNSPECIFIED SNOMED Code(s): 34956559 Comment: - Markedly macrocytic, Heme Onc consult Pending. - Normal B12, Folic Acid (7) Atrial fibrillation with RVR Current Visit: No Status: Acute Code(s): I48.91 - UNSPECIFIED ATRIAL FIBRILLATION SNOMED Code(s): 278588747544396 Comment: - Somewhat tachycardic on home meds, no room with BP for up-titration of Rate control meds. - Consider digoxin if it does not improve with IV hydration. (8) Chronic secondary oral pain Current Visit: No Status: Acute Code(s): K13.79 - OTHER LESIONS OF ORAL MUCOSA; G89.29 - OTHER CHRONIC PAIN SNOMED Code(s): 835192402 Comment: - Chronic mouth pain thought to be remenant from chemo and poor dentition - Continue magic mouthwash, no e/o thrush (9) Endometrial adenocarcinoma Current Visit: No Status: Acute Code(s): C54.1 - MALIGNANT NEOPLASM OF ENDOMETRIUM SNOMED Code(s): 924577673 Comment: - Diagnosed in 2014 incidently when she had bladder prolapse., s/p resection of tumor with LLUVIA with BAL and extrenal beam radiation with carbo/ taxel recent resection on feb 2018 - Last f/u on clinic on may 2018 with no recurrence - CTAP shows no e/o recurrence on 11/15 - CTA chest shows no recurrent disease, but has lymphadenopathy any patchy reticular disease with history of hypermetabolic lesions in lungs. - Heme/Onc consult pending. (10) Subclinical hypothyroidism Current Visit: No Status: Acute Code(s): E03.9 - HYPOTHYROIDISM, UNSPECIFIED SNOMED Code(s): 10978239 Comment: - Can be followed as outpt - TSH ~9 in 11/2018 (11) DNR (do not resuscitate) Current Visit: No Status: Acute (12) DVT prophylaxis Current Visit: No Status: Acute Code(s): Z29.9 - ENCOUNTER FOR PROPHYLACTIC MEASURES, UNSPECIFIED SNOMED Code(s): 817430590 Comment: - Severely Supratherapeutic INR Status and Disposition: Inpatient for multiple serious conditions.
--- NOTE | 2018-12-04 14:04 | ECHO ---
*[facility]* [place] [address] Fax #: [phone] Transthoracic Echocardiogram Patient: Loli Krishnan : 1935 Study Date: 12/04/2018 Age: 83 Gender: F HR: 107 bpm Height: 64 in /162.6 cm BSA: 1.43 m^2 Weight: 94.8 lb /43.1 kg BMI: 16.3 kg/m^2 *Facing Machine Operator: * Cassidy Robles RDCS RN *Referring Physician: * Brittni Lowe MD *Reading Physician: * Calvin Tate MD Indications: Congestive Heart Failure. Aortic Stenosis. History: Atrial fibrillation. Endometrial cancer. Congestive heart failure. Aortic stenosis. Mitral regurgitation. Recent Pulmonary Embolism. Risk factors: Hypertension. Dyslipidemia. Conclusions Summary: - Left ventricle: The cavity size is mildly reduced. Wall thickness is at the upper limits of normal. Systolic function is moderately reduced. There is moderate global hypokineis. The estimated ejection fraction is 35-40%. - Right ventricle: The cavity size is mildly dilated. Systolic function is moderately reduced. - Left atrium: The atrium is severely dilated. - Right atrium: The atrium is severely dilated. - Mitral valve: There is moderate to severe regurgitation. - Aortic valve: The findings are consistent with moderate to severe stenosis including on 2-D imaging. - Tricuspid valve: There is severe regurgitation. - Pulmonic valve: There is mild regurgitation. - Pulmonary arteries: Systolic pressure is mildly increased, estimated to be 40 mm Hg. - Since the prior echocardiogram completed 11/14/18, pertinent changes are prior mitral regurgitation and tricuspid regurgitation graded moderate. Study data: Transthoracic echocardiogram. Procedure: Transthoracic echocardiography was performed. Image quality was fair. Complete 2D, spectral Doppler, and color flow Doppler. Location: Bedside. Patient status: Inpatient. Patient room number: 434. Rhythm: Atrial fibrillation. Findings Left ventricle: The cavity size is mildly reduced. Wall thickness is at the upper limits of normal. Systolic function is moderately reduced. There is moderate global hypokineis. The estimated ejection fraction is 35-40%. There is global hypokinesis. Left ventricular diastolic function parameters are indeterminate. Right ventricle: The cavity size is mildly dilated. Systolic function is moderately reduced. Left atrium: The atrium is severely dilated. Right atrium: The atrium is severely dilated. Mitral valve: The Mitral valve annulus appears calcified. The leaflets are mildly thickened. There is no evidence of stenosis. There is moderate to severe regurgitation. Aortic valve: The annulus is calcified. The leaflets are severely calcified. Valve mobility is restricted. The findings are consistent with moderate to severe stenosis including on 2-D imaging. There is trace to mild regurgitation. Tricuspid valve: The leaflets are normal thickness. There is severe regurgitation. Hepatic cesar flow reversal is present Pulmonic valve: The valve is structurally normal. There is mild regurgitation. No stenosis. Aorta: Aortic root: The aortic root is not dilated. Ascending aorta: The ascending aorta is not dilated. Aortic arch: The aortic arch is poorly visualized. Pericardium: There is no significant pericardial effusion. Pulmonary arteries: The main pulmonary artery is not well seen. Systolic pressure is mildly increased, estimated to be 40 mm Hg. Systemic veins: Inferior vena cava: The vessel is normal in size. There is (< 50%) respiratory change in the IVC dimension. Measurements Left ventricle Value Ref Aortic valve Value Ref ROJELIO, LAX (L) 3.6 cm 3.8 - 5.2 Joan diam, ED 1.7 cm ----- ESD, LAX 3.1 cm 2.2 - 3.5 Peak v, S 1.9 m/sec ----- FS, LAX (L) 14 % 27 - 45 VTI, S 34.5 cm ----- Mid-wall FS 6 % Mean grad, S 9.0 mm Hg ----- PW, ED (H) 1.0 cm 0.6 - 0.9 Peak grad, S 15.0 mm Hg ----- E', lat joan, TDI (L) 6.6 cm/sec >=10.0 LVOT/AV, VTI ratio 0.3 --- -- E/e', lat joan, 17 MARGE, VTI 0.67 cm^2 ----- TDI MARGE, Vmax 0.77 cm^2 ----- E', med joan, TDI (L) 6.5 cm/sec >=7.0 E/e', med joan, 17 Mitral valve Value Ref TDI Peak E 1.11 m/sec ----- E', avg, TDI 6.6 cm/sec Decel time 242 ms ----- E/e', avg, TDI (H) 17 <=14 PHT 78 ms --- -- Peak grad, D 4.9 mm Hg ----- LVOT Value Ref MVA, PHT 3.3 cm^2 ----- Diam, S 1.70 cm ERO, PISA 0.15 cm^2 ----- Area 2.3 cm^2 MR vol, PISA 20 ml ----- Peak moisés, S 0.64 m/sec MR fraction, PISA 47 % ----- VTI, S 10.2 cm Mean grad, S 1 mm Hg Pulmonic valve Value Ref SV 23 ml Peak v, S 0.43 m/sec ----- SV/bsa 16 ml/m^2 Peak grad, S 1.0 mm Hg ----- Ventricular septum Value Ref Tricuspid valve Value Ref IVS, ED (H) 1.1 cm 0.6 - 0.9 TR peak v (H) 2.82 m/sec <=2.8 Peak RV-RA grad, S 32 mm Hg ----- Right ventricle Value Ref Max TR moisés 3.22 m/sec ----- ROJELIO, LAX 3.4 cm ROJELIO minor ax, A4C 3.0 cm 1.9 - 3.5 Aortic root Value Ref mid Root diam 2.7 cm <3.7 Pressure, S 40 mm Hg Ascending aorta Value Ref Left atrium Value Ref AAo AP diam, S 2.8 cm ----- AP dim, ES (H) 4.10 cm 2.70 - 3.80 Pulmonary artery Value Ref ML dim, A4C 4.1 cm Pressure, S 40.0 mm Hg ----- SI dim, A4C 6.7 cm Vol/bsa, ES, 1-p (H) 47 ml/m^2 11 - 40 Inferior vena cava Value Ref A4C Diam 2.1 cm ----- Right atrium Value Ref ML dim, ES, A4C 4.3 cm 2.6 - 4.4 SI dim, ES, A4C (H) 6.5 cm 3.4 - 5.3 Estimated RAP 8 mm Hg Legend: (L) and (H) twyla values outside specified reference range. Prepared and electronically signed by Calvin Tate MD 12/04/2018 14:03
[2018-12-04] MEDS ORDERED: Methylnaltrexone 150 MG TAB PO ONE (15:57)
[2018-12-04] MEDS ORDERED: CMCS:Methylnaltrexone SQ (NF) 12 MG/0.6 ML VIAL SUBCUT ONE (16:30)
[2018-12-04] MEDS: Magic Mouth Was-BEN/MAAL/LIDO SWISH SPIT SCH ×3 (16:56→21:43)
[2018-12-04] MEDS: NS 0.9% 1000 ML** 1,000 ML IV SCH ×2 (16:56→22:11)
[2018-12-04] MEDS ORDERED: Morphine INJ* 4 MG/ML 1 ML SYRINGE (NEW SYRINGE VERSION) IV PRN (17:22)
[2018-12-04] MEDS: HYDROmorphone INJ1* 1 MG/ML SYRINGE IV SLOW PU PRN (17:37)
[2018-12-04] MEDS: Mirtazapine TAB* 15 MG PO SCH (21:37)
[2018-12-04] MEDS ORDERED: Latanoprost 0.005%* 2.5 ml BTL BOTH EYES SCH (22:30)
[2018-12-04] MEDS: Travoprost Z 0.004% OPHTH (NF) 2.5 ML BTL BOTH EYES SCH (22:37)
[2018-12-05] MEDS: HYDROmorphone INJ1* 1 MG/ML SYRINGE IV SLOW PU PRN ×2 (01:15→08:58)
[2018-12-05] MEDS: Levothyroxine TAB* 25 MCG TAB PO SCH (05:37)
[2018-12-05 06:21] LABS: ABS Lymphocytes 0.2 10^3/ul (1.0-4.8); ABS Monocytes 0.4 10^3/ul (0-0.8); ABS Nucleated RBC 0.2 10^3/ul; Eosinophil % 0.1 %; Hematocrit 37 % (35-47); Hemoglobin 11.8 g/dL (12.0-16.0); Mean Corpuscular HGB Conc 32 g/dL (31-36); Mean Corpuscular Hemoglobin 37 pg (27-31); Mean Corpuscular Volume 117 fL (80-97); Mean Platelet Volume 8.7 fL (7.4-10.4); Nucleated Red Blood Cells % 2.9; Platelet Count 285 10^3/uL (150-450); Red Cell Distribution Width 20 % (10-15); White Blood Count 6.6 10^3/uL (3.5-10.8)
[2018-12-05 06:39] LABS: Albumin 2.7 g/dL (3.2-5.2); Albumin/Globulin Ratio 0.7 (1-3); BUN/Creatinine Ratio 57.1 (8-20); C Reactive Protein 64.8 mg/L (<8.01); Calcium 8.4 mg/dL (8.6-10.3); EGFR African American 43.6 (>60); Globulin 3.7 g/dL (2-4); Magnesium 2.9 mg/dL (1.9-2.7); Potassium 5.1 mmol/L (3.5-5.0); Total Bilirubin 1.3 mg/dL (0.2-1.0); Total Protein 6.4 g/dL (6.4-8.9)
[2018-12-05 06:45] LABS: INR 5.78 (0.82-1.09)
[2018-12-05] MEDS: Magic Mouth Was-BEN/MAAL/LIDO SWISH SPIT SCH ×4 (08:26→20:56)
[2018-12-05] MEDS: Metoprolol Tartrate TAB* 50 mg PO SCH (08:43)
[2018-12-05] MEDS: Multivitamins/Minerals TAB PO SCH (08:45)
[2018-12-05] MEDS: Atorvastatin* 10 MG TAB PO SCH (08:45)
[2018-12-05] MEDS: Polyethylene Glycol 3350* 17 GM PACKET PO SCH (08:55)
[2018-12-05] MEDS: Betaxolol 0.5 %* OPHTH.SOLN 5 ML BOTH EYES SCH (08:55)
[2018-12-05] MEDS ORDERED: cefTRIAXone(*) 1 GM in NS 0.9% 50 ML* 50 ML IVPB SCH (09:00)
[2018-12-05] MEDS ORDERED: Torsemide TAB* 20 MG PO SCH (09:00)
[2018-12-05] MEDS ORDERED: Spironolactone TAB* 25 MG PO SCH (09:00)
[2018-12-05] MEDS ORDERED: Furosemide IV* 10 MG/ML 2 ML VIAL (20 MG) IV SLOW PU SCH (09:00)
[2018-12-05] MEDS ORDERED: HYDROmorphone INJ1* 1 MG/ML SYRINGE IV SLOW PU PRN (09:12)
[2018-12-05] MEDS ORDERED: Iodixanol* (CONTRAST) 320 MG/ML 100 ML SDV IV ONE (09:58)
[2018-12-05] MEDS ORDERED: metroNIDAZOLE IV 250 MG/50ML* 50 ML IVPB SCH (10:00)
[2018-12-05] MEDS: Metoprolol Tartrate IV* 1 MG/ML 5 ML VIAL IV SCH ×2 (10:31→13:31)
[2018-12-05 11:27] VITALS: BP 96/67
[2018-12-05] MEDS ORDERED: Atropine 1% (ORAL/SL)* 15 ML BTL SL PRN (13:18)
[2018-12-05] MEDS: Morphine ORAL CONCENTRATE* 5 MG/0.25 ML ORAL.SYRIN SL PRN ×5 (14:33→23:55)
--- NOTE | 2018-12-05 15:19 | PN ---
Subjective Date of Service: 12/05/18 Interval History: Patient this morning is in distress from difficulty swallowing and large amounts of coughing, needing intermittent suctioning. Patient in apparent pain, but denies pain. Patient states her breathing is good despite tachypnea. Patient denies F/C, N/V, abdominal pain, diarrhea. Patient had BM overnight which relieved much of her pain. Family History: Unchanged from Admission Social History: Unchanged from Admission Past Medical History: Unchanged from Admission Objective Active Medications: Albuterol/Ipratropium (Duoneb (Albuterol 2.5 Mg/Ipratropium 0.5 Mg)) 1 neb INH Q4H PRN PRN Reason: SOB/WHEEZING Atropine Sulfate (Atropine 1% (Oral/Sl)*) 2 drop SL Q2H PRN PRN Reason: Secretions Lidocaine HCl (Lidocaine 2% Jelly*) 1 applic TOPICAL TID PRN PRN Reason: Anal Pain Last Admin: 12/04/18 13:45 Dose: 1 applic Morphine Sulfate (Morphine Oral Concentrate*) 5 mg SL Q2H PRN PRN Reason: Pain/Dyspnea Last Admin: 12/05/18 14:33 Dose: 5 mg Multi-Ingredient Mouthwash/Gargle (Magic Mouth Was-Maikel/Maal/Lido*) 5 ml SWISH SPIT QID HAILEE Last Admin: 12/05/18 13:31 Dose: Not Given Vital Signs - 8 hr 12/05/18 12/05/18 12/05/18 07:15 08:00 08:58 Temperature 97.5 F Pulse Rate 101 Respiratory 20 20 24 Rate Blood Pressure 108/83 (mmHg) O2 Sat by Pulse 100 Oximetry 12/05/18 12/05/18 12/05/18 10:00 10:32 11:15 Temperature 97.3 F Pulse Rate 113 Respiratory 10 12 Rate Blood Pressure 88/56 96/67 (mmHg) O2 Sat by Pulse 100 Oximetry 12/05/18 12/05/18 12/05/18 13:03 14:27 14:33 Temperature Pulse Rate Respiratory 22 20 20 Rate Blood Pressure (mmHg) O2 Sat by Pulse Oximetry Oxygen Devices in Use Now: Nasal Cannula Appearance: Patient is an 83yo female who appears older than stated age and is sitting in the bed, occasionally wincing and with increased work of breathing. Eyes: No Scleral Icterus, PERRLA Ears/Nose/Mouth/Throat: Clear Oropharnyx, Mucous Membranes Moist, - - Edentulous except 2 teeth. Irritation of the oral mucosa Neck: NL Appearance and Movements; NL JVP, Trachea Midline Respiratory: Symmetrical Chest Expansion and Respiratory Effort, - - Rales in B/ L Bases, new from yesterday Cardiovascular: No Edema, - - Tachycardia with Irregularly irregular rhythm. Slight LIBERTY Abdominal: NL Sounds; No Tenderness; No Distention, No Hepatosplenomegaly Lymphatic: No Cervical Adenopathy Extremities: No Clubbing, Cyanosis Skin: No Nodules or Sclerosis Neurological: - - Alert, oriented only to self. - Nutrition: Malnutrition Diagnosis/Plan Malnutrition Assessment by Registered Dietitian: Malnutrition Assessment Clinical Characteristics Acute,Severe Malnutrition Assessment: Muscle Wasting - Temporal muscle wasting ( severe Criteria ) Fat Pad Wasting - Buccal fat pad wasting ( severe ) Inadequate Oral Intake - Pt reports inability to eat; consumed 0% B and L this AM - anticipate meeting <50% nutrient needs >1 wk (severe) Unintentional Wt Loss - Current wt 105lb, prev wt 114lb (11/15/2018) - 7.8% loss x2 wks (severe ) Underweight - BMI 18.1 Malnutrition Assessment: Nutritional Supplementals/Nourishments - Will Interventions send Ensure Enlive (350kcal, 20g prot/serv) w/ B , L, and D to optimize kcal/prot intake; will monitor continued acceptance. Textures Modifications - [employer] eval ordered 12/03 and trays held; will follow for recommendations , monitor tolerance, and recommend [employer] f/u as able. GI Related - Recommend continuing bowel regimen ; will monitor GI s/sx for impact on intake. Glycemic Control - Dietary restriction not indicated at this time; will continue to monitor BG/FS in the setting of T2DM. Malnutrition Assessment: Goals 1) Pt will tolerate least restrictive dietary textures w/o further difficulty chewing/ swallowing 2) Adequate po intake to replete lean body mass , support wound healing, wt gain, and hydration status 3) Maintain fluid/electrolyte balance w/ adequate po intake 4) Improve glycemic control w/ adequate po intake w/o need for dietary restriction in the setting of T2DM 5) Maintain bowel regularity w/ adequate po intake and bowel regimen w/o exac of constipation/development of diarrhea Result Diagrams: 12/05/18 05:56 12/05/18 05:56 Microbiology and Other Data: Microbiology 12/03/18 18:04 Nasal Screen MRSA (PCR) - Final Nasal Mrsa Not Detected Assess/Plan/Problems-Billing Assessment: Patient is an 83yo female with a PMH for endometrial cancer S/P resection, Chemotherapy, and radiation, , Afib, HFrEF, Pulmonary fibrosis, here with decreased oral intake, weight loss and worsening hypoxia of unclear etiology. - Patient Problems (1) Heart failure with reduced ejection fraction Current Visit: No Status: Acute Code(s): I50.20 - UNSPECIFIED SYSTOLIC ( CONGESTIVE) HEART FAILURE SNOMED Code(s): 925622246 Comment: - Severe valvular disease with decreased EF and Afib with RVR - Discussed the need for multiple valvular surgeries with daughter and family and they are electing to discontinue all life sustaining measures as patient is not currently a candidate for surgery (2) Elevated INR Current Visit: Yes Status: Acute Code(s): R79.1 - ABNORMAL COAGULATION PROFILE SNOMED Code(s): 814151199 Comment: - ? Related to Eliquis accumulation vs Lupus Anticoagulant - Did not improve to Vitamin K dosing. Recheck Daily - No significant bleeding at this time requiring more intensive reversal. (3) ADRIEN (acute kidney injury) Current Visit: Yes Status: Acute Code(s): N17.9 - ACUTE KIDNEY FAILURE, UNSPECIFIED SNOMED Code(s): 70627361 Comment: - Worsened with fluids with signs of fluid overload. - Likely due to poor forward flow from MR and - Comfort care (4) Pulmonary embolism on long-term anticoagulation therapy Current Visit: No Status: Acute Code(s): I26.99 - OTHER PULMONARY EMBOLISM WITHOUT ACUTE COR PULMONALE; Z79.01 - SHELTER (CURRENT) USE OF ANTICOAGULANTS SNOMED Code(s): 804064439 Comment: - Acute on chronic PE even after being on warfarin. - Started on Apixaban Last Month, Severely Elevate INR - ? Recurrence of malignancy. (5) Protein calorie malnutrition Current Visit: Yes Status: Acute Code(s): E46 - UNSPECIFIED PROTEIN-CALORIE MALNUTRITION SNOMED Code(s): 568674141 Comment: - Severe muscle wasting. Very poor oral intake. - 6kg weight loss in less than a month - Cachexia. Unclear cause, significant worsening of dysphagia this AM - Comfort care. (6) Anemia, macrocytic Current Visit: No Status: Acute Code(s): D53.9 - NUTRITIONAL ANEMIA, UNSPECIFIED SNOMED Code(s): 40884922 Comment: - Markedly macrocytic - Normal B12, Folic Acid (7) Atrial fibrillation with RVR Current Visit: No Status: Acute Code(s): I48.91 - UNSPECIFIED ATRIAL FIBRILLATION SNOMED Code(s): 659555404461546 Comment: - Somewhat tachycardic on home meds, no room with BP for up-titration of Rate control meds. - Comfort Care (8) Chronic secondary oral pain Current Visit: No Status: Acute Code(s): K13.79 - OTHER LESIONS OF ORAL MUCOSA; G89.29 - OTHER CHRONIC PAIN SNOMED Code(s): 016446567 Comment: - Chronic mouth pain thought to be remenant from chemo and poor dentition - Continue magic mouthwash, no e/o thrush (9) Endometrial adenocarcinoma Current Visit: No Status: Acute Code(s): C54.1 - MALIGNANT NEOPLASM OF ENDOMETRIUM SNOMED Code(s): 800063080 Comment: - Diagnosed in 2014 incidently when she had bladder prolapse., s/p resection of tumor with LLUVIA with BAL and extrenal beam radiation with carbo/ taxel recent resection on feb 2018 - Last f/u on clinic on may 2018 with no recurrence - CTAP shows no e/o recurrence on 11/15 - CTA chest shows no recurrent disease, but has lymphadenopathy any patchy reticular disease with history of hypermetabolic lesions in lungs. - Not stable for Bronchoscopy, Comfort Care (10) DNR (do not resuscitate) Current Visit: No Status: Acute Comment: - Comfort Care (11) DVT prophylaxis Current Visit: No Status: Acute Code(s): Z29.9 - ENCOUNTER FOR PROPHYLACTIC MEASURES, UNSPECIFIED SNOMED Code(s): 919595469 Comment: - Severely Supratherapeutic INR Status and Disposition: Inpatient for multiple serious conditions. Comfort care, Likely very limited life expectancy.
[2018-12-05] MEDS ORDERED: LORazepam INJ* 2 MG/ML 1 ML VIAL IV PUSH ONE (21:49)
[2018-12-05] MEDS ORDERED: Lorazepam PYXIS KEY PRN (22:33)
[2018-12-06] MEDS: Morphine ORAL CONCENTRATE* 5 MG/0.25 ML ORAL.SYRIN SL PRN ×5 (00:54→05:00)
[2018-12-06] MEDS ORDERED: Lorazepam PYXIS KEY PRN (02:12)
[2018-12-06] MEDS ORDERED: LORazepam INJ* 2 MG/ML 1 ML VIAL IV PUSH SCH (03:00)
--- NOTE | 2018-12-06 10:56 | DS ---
Amended report to correct attending physician. CC: Dr. Holliday * DISCHARGE/ SUMMARY: DATE OF ADMISSION: 12/03/18 DATE OF EXPIRATION: 12/06/18 PRIMARY CARE DOCTOR: Dr. Holliday MY ATTENDING WHILE IN THE HOSPITAL: Dr. Griffin Alvarado * (DICTATED BY JACKELINE DESOUZA) CONDITIONS CONTRIBUTING TO : Heart failure; malnutrition; likely aspiration pneumonia; atrial fibrillation with RVR; aortic stenosis; possible recurrence of endometrial cancer; pulmonary embolism; pulmonary fibrosis, unknown etiology. ADDITIONAL DIAGNOSES: Severe mitral and tricuspid regurgitation, possible chronic obstructive pulmonary disease. STUDIES DONE WHILE IN THE HOSPITAL: Chest x-ray from 12/03/18 read as cardiomegaly, diffuse pattern of interstitial opacification progressed from the 11/13/18 examination. Transthoracic echocardiogram showed [id number] aortic stenosis, moderate -to- severe mitral regurgitation, [id number] tricuspid regurgitation, decreased EF 35% to 40%. Abdomen x-ray from 12/04/18 read as nonspecific bowel gas pattern, large amount of stool in the distal colon. Left lower lung consolidation. Chest x-ray from 12/05/18 read as constellation of findings more suggestive of bronchopneumonia, suggestion of mild improvement in the right apex compared to 12/03/18, component of interstitial pulmonary edema is not excluded. HOSPITAL COURSE: This is a brief summary of the patient's presentation. For more details, please see the history and physical from Vaishnavi Baldwin DO on 04/22. In brief, the patient is an 83-year-old female with past medical history significant for the above, who was recently admitted to institution in November 2018 for several days related to new diagnoses of pulmonary embolism and heart failure with reduced ejection fraction. The patient was started on Eliquis and discharged to [facility] for rehab. In [facility], the patient began to have increasing dysphagia, which has been a chronic problem for her as well as weight loss, dehydration, and failure to thrive. The patient was returned to the emergency department due to inability to continue work with physical therapy and very poor oral intake. The patient in the emergency department was found to be dehydrated with possible pulmonary interstitial edema. The patient also found to have an INR of 6.2. The patient was markedly constipated, had a very elevated BNP. The patient was admitted to the hospital, given gentle fluids, given vitamin K, which did not affect her INR. The patient was seen in consultation by Dr. Brittni Lowe and Dr. Calvin Tate of Cardiology. The patient had a repeat echocardiogram, which showed worsening intervalvular diseases as above. The patient began to become fluid overloaded with fluids and her creatinine worsened. The patient had very poor urine out, was given Lasix, this did not improve her breathing status. The patient's dysphagia began to worsen. The patient was recommended to only have sips of water, but began to aspirate on her own secretions. The patient was discussed with Oncology, who stated the patient had enlarged lymph nodes in her mediastinum and this may represent recurrence of some form of malignancy, but that she would need an endobronchial ultrasound with the bronchoscopy to determine this and that she was not currently a candidate for this. Given her poor nutrition status and her heart disease, the patient's condition was discussed with her daughter as the patient was not able to make decisions for herself at this point and it was discussed that there is a possibility that given adequate nutrition, she would be able to be stabilized for bronchoscopy, which would then allow for a definitive diagnosis or rule out of cancer in the mediastinum, which would then allow for a transaortic valve replacement possible mitral valve clipping, but that this would entail a prolonged hospital stay that the prognosis for this was not very good and that the patient was in significant pain. At this time, the patient's family stated they understood and opted for comfort measures only. The patient's all existing treatment was withdrawn and the patient was treated aggressively with pain medications, which were adequate in controlling her pain and the patient at 6:03 a.m. on . The patient pronounced by Dr. Griffin Alvarado. Emotional support was provided to the family. JACKELINE DESOUZA [id number]/[facility] #: [id number] KATE
== END 2018-12-06 06:03 | disposition expired | DRG 291 ==
LOC: ED 13:40 → MEDTELE 17:00
PROVIDERS: ADMIT Internal Medicine; ATTEND Internal Medicine
DX: I11.0 Hypertensive heart disease with heart failure (principal); J96.01 Acute respiratory failure with hypoxia; I26.99 Other pulmonary embolism without acute cor pulmonale; J69.0 Pneumonitis due to inhalation of food and vomit; N17.9 Acute kidney failure, unspecified; I48.20 Chronic atrial fibrillation, unspecified; I27.82 Chronic pulmonary embolism; E46 Unspecified protein-calorie malnutrition; R62.7 Adult failure to thrive; I50.42 Chronic combined systolic (congestive) and diastolic (congestive) heart failure; I42.9 Cardiomyopathy, unspecified; K59.00 Constipation, unspecified; D53.9 Nutritional anemia, unspecified; E78.00 Pure hypercholesterolemia, unspecified; E11.39 Type 2 diabetes mellitus with other diabetic ophthalmic complication; E03.9 Hypothyroidism, unspecified; Z51.5 Encounter for palliative care; G89.29 Other chronic pain; K13.79 Other lesions of oral mucosa; Z66 Do not resuscitate; E78.5 Hyperlipidemia, unspecified; M48.00 Spinal stenosis, site unspecified; E86.0 Dehydration; C54.1 Malignant neoplasm of endometrium; R13.10 Dysphagia, unspecified; H42 Glaucoma in diseases classified elsewhere; K21.9 Gastro-esophageal reflux disease without esophagitis; Z90.710 Acquired absence of both cervix and uterus; Z80.51 Family history of malignant neoplasm of kidney; Z85.42 Personal history of malignant neoplasm of other parts of uterus; Z91.030 Bee allergy status; Z92.21 Personal history of antineoplastic chemotherapy; Z92.3 Personal history of irradiation; Z79.01 Long term (current) use of anticoagulants
CPT/HCPCS: 36415; 71045; 74018; 80048; 80053; 81003; 81015; 82550; 82607; 83605; 83735; 83880; 84134; 84443; 84484; 85025; 85027; 85610; 85730; 86140; 87077; 87086; 87186; 87641; 93005; 93306; 99284; A9270-GY; J0696; J1170; J1940; J2060